=== PATIENT | female | born 1975 | race Caucasian/White ===

== ENCOUNTER 2017-10-26 22:02 | Emergency (ER) | payer BC, SELFPAY ==
[2017-10-26 22:15] VITALS: BP 168/97; PULSE 78; RESP 20; TEMP 36.6; O2SAT 100; BMI 26.4
--- NOTE | 2017-10-26 22:20 | DI.RAD.S_ITS ---
PROCEDURE: XR WRIST LT MIN 3V INDICATIONS: fell and has swelling and pain TECHNIQUE: 3 views of the wrist were acquired. COMPARISON: None. FINDINGS: Bones: Comminuted, articulating fracture of the distal radius without angulation or displacement. Distal ulna and carpal bones appear intact. Scaphoid view: Not requested Soft tissues: No suspicious soft tissue calcifications. IMPRESSION: Intra-articular tripartite fracture distal radius. Findings are concordant with the preliminary reading Dictated by: Marshall Cervantes M.D. on 10/27/2017 at 8:05 Approved by: Marshall Cervantes M.D. on 10/27/2017 at 8:06
--- NOTE | 2017-10-26 22:22 | ED.UPPEXIN ---
HPI - Extremity Injury (Upper) General Chief Complaint: Extremity Injury, Upper Stated Complaint: LT WRIST INJURY Time Seen by Provider: 10/26/17 22:22 Source: patient Mode of arrival: ambulatory Limitations: no limitations History of Present Illness HPI narrative: Patient is a 42-year-old female who presents with left wrist pain. She was [place] and walking on the beach when she tripped and fell backwards. She has pain in her left wrist. No numbness or tingling. It hurts when she moves her wrist and fingers. No elbow or shoulder pain no other injuries. MD complaint: injury to: left and wrist Onset (ago): minute(s) Other injuries: none Related Data Previous Rx's Medication Instructions Recorded IBUPROFEN (#MOTRIN) 800 mg PO Q6H #30 03/30/11 oxycodone-acetaminophen [Percocet] 1 tab PO Q6H PRN #10 tab 10/26/17 Allergies Allergy/AdvReac Type Severity Reaction Status Date / Time acetaminophen [From VICODIN] Allergy Unknown ITCHING Verified 10/26/17 22:25 hydrocodone [From VICODIN] Allergy Unknown ITCHING Unverified 10/26/17 22:26 Review of Systems Constitutional Denies chills, Denies fever(s), Denies lethargy and Denies weakness Cardiovascular Denies chest pain and Denies palpitations Respiratory Denies cough Musculoskeletal Reports system reviewed and no additional complaints, except as docu and Reports as per HPI Integumentary/Breasts Denies pruritus, Denies erythema, Denies rash and Denies wounds Neurologic Denies weakness and Denies other (head injury) Endocrine Denies palpitations [facility] Surgical History History of bladder suspension procedure History of gastric bypass (05/10/04) History of third molar tooth extraction Status post tonsillectomy and adenoidectomy Status post tubal ligation Social History Smoking Status: Never smoker Exam Initial Vital Signs Initial Vital Signs: Vital Signs Temperature 98 F 10/26/17 22:15 Pulse Rate 78 10/26/17 22:15 Respiratory Rate 20 10/26/17 22:15 Blood Pressure 168/97 H 10/26/17 22:15 Pulse Oximetry 100 10/26/17 22:15 Const General: cooperative and well developed Nutritional Appearance: well nourished Orientation: alert, awake, oriented x3 and not confused Chest Chest: normal inspection of the chest Resp Effort & Inspection: normal respiratory effort and able to speak in complete sentences Cardio Pulses: radial pulses present and ulnar radial pulses present Skin General: no rashes or lesions noted, No jaundice and No petechiae Neuro General: alert, oriented x3, gait normal and no focal motor deficits Speech: speech normal Extrem Left upper extremity: wrist Details: tenderness Location: of the distal radius, abnormal ROM Details: pain with passive ROM and normal vascular exam; no swelling Procedures Orthopedic Splinting/Casting Injury #1: Side: left Upper Extremity Injury Location: wrist Upper Extremity Immobilizer: sugar tong splint Additional Comments: Neurovascularly intact before and after splinting Course Orders Ordered: ED Orders 10/26/17 22:20 XR wrist LT min 3V Stat Discontinued Medications Oxycodone/Acetaminophen (Endocet 5/325 Prepack) 1 bottle MISC SEEINSTR ONE Stop: 10/26/17 22:53 Last Admin: 10/26/17 22:55 Dose: 1 bottle Vital Signs - 8 hr 10/26/17 22:15 10/26/17 23:13 Temperature 98 F 98.0 F Pulse Rate 78 68 Respiratory Rate 20 16 Blood Pressure 168/97 H Blood Pressure [Right Arm] 154/99 H Pulse Oximetry 100 MDM - Extremity Injury (Upper) Imaging Data Left wrist x-ray: Attestation: I personally reviewed and interpreted this imaging study as follows: My impression: Distal radius fracture on minimal displacement Discharge Plan Departure Patient Disposition: Home, Self-Care Clinical Impression: Distal radius fracture, left Discharge Date/Time: 10/26/17 23:20 Interventions: ED Discharge Assessment Last Done: 10/26/17 23:19 Instructions: DI for Distal Radius Fracture Activity Restrictions/Additional Instructions: *You have been diagnosed with left distal radius fracture *What to do: Keep arm in splint until evaluated by Orthopedics. Elevate, ice 20 min at a time *Continue to take medications as directed -Percocet 1 tablet every 4 hr or 2 tablets every 6 hr if needed for severe pain *Follow up with your primary care provider in 2-3 days, call [facility] tomorrow to schedule follow-up appointment next week *Return to ER if you should have numbness, tingling or any new, worsening or concerning symptoms CONTROLLED SUBSTANCE DISCHARGE (Narcotoic/benzodiazepine/Flexeril/Phenergan) 1. You have been prescribed narcotic medications, it does have acetaminophen/Tylenol/paracetamol in it so do not take extra Tylenol or Tylenol containing products 2. Please understand that we cannot provide further refills of narcotics, benzodiazepines or controlled substances through the ED and her pain management will need to be through your provider. 3. While on these medications you cannot drive or operate heavy machinery. 4. You cannot sign legal documents or perform any duties such as this. 5. As long as you're taking opiate pain medications he should also be taking a stool softener such as Colace, Dulcolax, MiraLAX or prune juice, to help avoid constipation. Prescriptions: New oxycodone-acetaminophen [Percocet] 5-325 mg tablet 1 tab PO Q6H PRN (Reason: pain) Qty: 10 RF: 0 No Action IBUPROFEN (#MOTRIN) 800 mg PO Q6H Qty: 30 RF: 1 Referrals: [facility] [Outside] Stand Alone Forms: Work/School Restrictions
[2017-10-26] MEDS: OXYCODONE/APAP 5/325 PREPACK 1 BOTTLE MISC (22:55)
[2017-10-26 23:13] VITALS: BP 154/99; PULSE 68; RESP 16; TEMP 36.7
== END 2017-10-26 23:20 | disposition home or self-care (01) ==
LOC: ED 23:45
PROVIDERS: Emergency Provider Emergency Medicine
DX: S52.502A Unspecified fracture of the lower end of left radius, initial encounter for closed fracture (principal); W01.0XXA Fall on same level from slipping, tripping and stumbling without subsequent striking against object, initial encounter
CPT/HCPCS: 29105; 29240; 73110; 99282; 99283

== ENCOUNTER → 2017-11-02 13:24 | Outpatient (CLI) | payer BC, MEDICAID, SELFPAY ==
--- NOTE | 2017-11-02 | DI.CT.S_ITS ---
PROCEDURE: CT UE LT WO CON INDICATIONS: LEFT WRIST PAIN TECHNIQUE: Noncontrast 1 mm axial sections acquired through the carpal bones, with coronal and sagittal reformats. COMPARISON: None. FINDINGS: Image quality: Excellent. Bones: Comminuted, mildly impacted intra-articular fracture is seen involving the distal radial metaphysis, extending to the distal radial articular surface although there is minimal if any articular surface incongruity Soft tissues: There is adjacent soft tissue swelling. Visualized muscles and tendons are otherwise unremarkable. IMPRESSION: Distal radial fracture as detailed above. Dictated by: Bassam Herman M.D. on 11/02/2017 at 13:56 Approved by: Bassam Herman M.D. on 11/02/2017 at 14:01
== END ==
PROVIDERS: Visit Provider Orthopaedic Surgery Foot and Ankle Surgery
DX: S52.502A Unspecified fracture of the lower end of left radius, initial encounter for closed fracture (principal)
CPT/HCPCS: 73200

== ENCOUNTER → 2018-05-18 08:27 | Outpatient (CLI) | payer BC, SELFPAY ==
--- NOTE | 2018-05-18 | DI.MG.S_ITS ---
BILATERAL DIGITAL SCREENING MAMMOGRAM 3D/2D WITH CAD: 05/18/2018 CLINICAL: Routine screening. Family history of breast cancer. Comparison is made to exams dated: 05/19/2016 mammogram and 08/12/2004 mammogram - [facility]. There are scattered fibroglandular elements in both breasts. Current study was also evaluated with a Computer Aided Detection (CAD) system. No significant masses, calcifications, or other findings are seen in either breast. There has been no significant interval change. IMPRESSION: NEGATIVE There is no mammographic evidence of malignancy. A 1 year screening mammogram is recommended. This exam was interpreted at Station ID: [id number]. NOTE: For mammograms, a report in lay terms will be sent to the patient. Approximately 15% of breast malignancies will not be visualized mammographically. In the management of a palpable breast mass, a negative mammogram must not discourage biopsy of a clinically suspicious lesion. Electronically Signed By: Lg stahl/adan:05/18/2018 20:59:27 letter sent: Normal Exam ACR BI-RADS Category 1: Negative [id number]
== END ==
PROVIDERS: Visit Provider Family Medicine
DX: Z12.31 Encounter for screening mammogram for malignant neoplasm of breast (principal); Z80.3 Family history of malignant neoplasm of breast
CPT/HCPCS: 77063; 77067

== ENCOUNTER 2019-04-04 06:35 | Emergency (ER) | payer BC, SELFPAY ==
[2019-04-04 06:44] VITALS: BP 143/95; PULSE 72; RESP 18; TEMP 36.6; O2SAT 98
[2019-04-04 06:57] LABS: Add Manual Diff / Slide Review NO; Basophils Absolute Auto 0 /uL (0-100); Basophils Percent Auto 0.4 % (0-2); Eosinophils Absolute Auto 200 /uL (0-450); Eosinophils Percent Auto 1.6 % (2-4); Hematocrit 41.8 % (36-46); Hemoglobin 14.2 g/dL (12.0-16.0); Lymphocytes Absolute Auto 4100 /uL (1100-4500); Lymphocytes Percent Auto 44.6 % (25-40); Mean Corpuscular HGB Conc 34.1 % (30-36); Mean Corpuscular Hemoglobin 29.9 PG (26-34); Mean Corpuscular Volume 87.9 fL (80-100); Monocytes Absolute Auto 600 /uL (0-900); Monocytes Percent Auto 6.3 % (3-14); Neutrophils Absolute Auto 4300 /uL (1500-7000); Neutrophils Percent Auto 47.1 % (50-75); Platelet Count 247 X10^3/uL (150-400); Red Blood Cell Count 4.75 X10^6/uL (4.0-5.2); Red Cell Distribution Width 13.3 % (11.6-14.8); White Blood Cell Count 9.2 X10^3/uL (4.5-11.0)
[2019-04-04 07:03] LABS: Alanine Aminotransferase 13 IU/L (<35); Albumin 4.5 g/dL (3.5-5.0); Albumin Globulin Ratio 1.6 (1.0-2.8); Alkaline Phosphatase 61 U/L (38-126); Aspartate Aminotransferase 21 IU/L (14-36); BUN Creatinine Ratio 12.5 (6-22); Bilirubin Total 0.5 mg/dL (0.2-1.3); Blood Urea Nitrogen 10 mg/dL (7-17); Calcium 9.2 mg/dL (8.4-10.2); Carbon Dioxide 25 mmol/L (22-32); Chloride 103 mmol/L (98-107); Estimated Glomerular Filt Rate > 60.0 mL/min (>60); Globulin 2.9 g/dL (1.7-4.1); Glucose 144 mg/dL (70-100); HEMOLYSIS < 15 (0-50); Lipase 122 U/L (23-300); Potassium 4.1 mmol/L (3.4-5.1); Sodium 138 mmol/L (137-145); Total Protein 7.4 g/dL (6.3-8.2)
--- NOTE | 2019-04-04 07:18 | PC.NURSE ---
Addendum entered by Joy Silverman R.N. 04/04/19 07:19: ammended for correction of R flank Original Note: L flank pain since this morning. no h/o kidney stones. denies fever. urine sample obtained. urine yellow and clear. afebrile
[2019-04-04 07:25] LABS: Appearance Urine UA CLEAR; Bilirubin Urine UA NEGATIVE (NEGATIVE); Color Urine UA YELLOW; Glucose Urine UA NEGATIVE (Negative); Ketones Urine UA TRACE (NEGATIVE); Leukocyte Esterase Urine UA NEGATIVE (NEGATIVE); Nitrite Urine UA NEGATIVE (Negative); Occult Blood Urine UA 1+ (Negative); Protein Urine UA 1+ (Negative); Specific Gravity Urine UA >=1.030 (1.000-1.035); Urobilinogen Urine UA 0.2 E.U./dL (0.2)
[2019-04-04 07:28] LABS: Pregnancy Test Urine Negative (Negative)
[2019-04-04 07:44] LABS: Bacteria Urine Many (>30); Culture Indicated Urine Cult Not Indicated; RBC Urine 1-5/HPF (0-5/HPF); Squamous Epithelial Cell Urine 10-30 /HPF (0-5/HPF); WBC Urine 1-5/HPF (0-5/HPF); pH Urine UA 5.5 (4.5-8.0)
--- NOTE | 2019-04-04 08:06 | ED.BACK ---
HPI - Back Pain/Injury General Chief Complaint: Back Pain/Injury Stated Complaint: stabbing pain/lower abdomen Time Seen by Provider: 04/04/19 07:10 Source: patient Mode of arrival: Ambulatory Limitations: no limitations History of Present Illness HPI Narrative: The patient comes emergency department complaining of right lower quadrant and right flank pain since yesterday. Patient states that she has had some nausea without vomiting and her appetite has been decreased, as well. She denies fevers, though she does states she feels warm when the nausea comes up. 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 However, she got out of bed and felt a sharp, knife-like pain in her right lower quadrant and it made her double over. Patient states she could not walk down the hemphill without doubling over. Patient states that the pain is about a 3/10 as long she does not move, but when she moves, the pain immediately shoots up. She denies any dysuria. No hematuria. No diarrhea or blood in her stools. Patient states that she has had abdominal surgeries, including gastric bypass and tubal ligation twice. Patient denies any other complaints at this time. Related Data Home Medications Medication Instructions Recorded Confirmed Resmed Airsense 10 CPAP #1 ea 11/22/18 03/29/19 Previous Rx's Medication Instructions Recorded IBUPROFEN (#MOTRIN) 800 mg PO Q6H #30 03/30/11 fluoxetine 20 mg tablet 20 mg PO DAILY #30 tab 03/29/19 methylphenidate HCl 54 mg 54 mg PO QAM #30 tab 03/29/19 tablet,extended release 24 hr ondansetron 4 mg PO Q6H PRN #10 tab 04/04/19 tramadol 50 mg PO Q6H PRN #10 tab 04/04/19 Allergies Allergy/AdvReac Type Severity Reaction Status Date / Time acetaminophen [From VICODIN] Allergy Unknown ITCHING Verified 03/08/19 08:59 hydrocodone [From VICODIN] Allergy Unknown ITCHING Verified 03/08/19 08:59 Review of Systems Constitutional Constitutional: Denies chills, Denies fatigue, Denies fever(s), Denies frequent falls, Denies lethargy and Denies weakness Eyes Eyes: Denies change in vision, Denies eye discharge, Denies irritation and Denies loss of vision ENT Ears, Nose, Mouth, and Throat: Denies change in voice, Denies dizziness, Denies neck pain, Denies sore throat and Denies throat swelling Cardiovascular Cardiovascular: Denies chest pain, Denies irregular heart rhythm, Denies lightheadedness, Denies palpitations, Denies dyspnea, Denies dyspnea on exertion and Denies orthopnea Respiratory Respiratory: Denies cough, Denies dyspnea, Denies dyspnea on exertion and Denies wheezing Gastrointestinal Gastrointestinal: Reports abdominal pain, Denies change in bowel habits, Denies diarrhea, Reports nausea and Denies vomiting Genitourinary Genitourinary: Denies hematuria, Denies flank pain, Denies urinary incontinence and Denies urinary urgency Musculoskeletal Musculoskeletal: Denies back pain, Denies muscle weakness, Denies neck pain, Denies numbness and Denies tingling Integumentary/Breasts Skin/Breast: Denies pruritus, Denies erythema, Denies rash and Denies wounds Neurologic Neurologic: Denies behavioral changes, Denies confusion, Denies dizziness, Denies frequent falls, Denies loss of vision, Denies numbness, Denies tingling and Denies weakness Psychiatric Psychiatric: Denies anxiety, Denies behavioral changes, Denies confusion, Denies depression, Denies homicidal ideation and Denies suicidal ideation Endocrine Endocrine: Denies fatigue, Denies flushing and Denies palpitations Hematologic/Lymphatic Hematologic/Lymphatic: Denies easy bruising Allergic/Immunologic Allergic/Immunologic: Denies urticaria, Denies throat swelling and Denies wheezing Patient History Medical History Alcohol use disorder, moderate, in sustained remission (Inactive) Breathing-related sleep disorder (Ruled-out) Insomnia (Chronic ~2017) Obstructive sleep apnea of adult (Chronic ~2017) Snoring (Chronic ~2017) Surgical History History of bladder suspension procedure (Resolved) History of gastric bypass (Resolved 05/10/04) History of third molar tooth extraction (Resolved) Status post tonsillectomy and adenoidectomy (Resolved) Status post tubal ligation (Resolved) Social History marital status: number of children: 2 household members: children (son Fadi (~2006), daughter Sandra (~2010)) lives independently: Yes caregiver/support person: No housing: apartment education level: college ([employer]) occupational status: employed current occupational exposures/hazards: No leisure activities: sports (running 3-5 times weekly) Smoking Status: Never smoker alcohol intake: former substance use type: does not use Type(s) of exercise: running frequency: 5-6 times per week Substance Use Type: does not use Exam Initial Vital Signs Initial Vital Signs: Vital Signs Temperature 98 F 04/04/19 06:44 Pulse Rate 72 04/04/19 06:44 Respiratory Rate 18 04/04/19 06:44 Blood Pressure 143/95 H 04/04/19 06:44 Pulse Oximetry 98 04/04/19 06:44 Const General: cooperative and well developed Nutritional Appearance: well nourished Orientation: alert, awake, oriented x3 and not confused HENMT Head: normocephalic and atraumatic Ears: external ears normal and TM's normal bilaterally Nose: external nose normal and No nasal discharge Face and sinus: sinuses nontender, face symmetric, no sinus tenderness and No dry mucous membranes Mouth: oral mucosae normal and moist mucous membranes Teeth and gingiva: dentition normal Throat: tonsils normal and uvula midline Eyes General: appearance normal, both eyes and all related structures Eyelids: eyelids normal Conjunctivae: conjunctivae normal Sclera: sclerae normal Pupils: PERRL EOM: EOM intact bilaterally Neck Neck: normal visual inspection, trachea midline, No lymphadenopathy, No midline deformity and No JVD Lymphatic: No lymphedema Chest Chest: normal inspection of the chest Resp Effort & Inspection: normal respiratory effort, able to speak in complete sentences, no respiratory distress and no use of accessory muscles Auscultation: clear to auscultation bilaterally, no rales, no rhonchi and no wheezes Cardio Rate: regular rate Rhythm: regular rhythm Heart Sounds: no click, no gallops, no murmurs and no rubs Pulses: normal peripheral pulses GI Inspection: non-distended Palpation: soft, no hepatosplenomegaly, No guarding, No pulsatile mass and tender (Mild, right lower quadrant and right flank.) Back/Spine/Pelvis Back: No CVA tenderness Cervical Spine: cervical ROM normal and No pain with cervical ROM Thoracic/Lumbar Spine: thoracic and lumbar spine normal to inspection Skin General: no rashes or lesions noted, No jaundice and No petechiae Neuro General: alert, oriented x3, gait normal and no focal motor deficits Speech: speech normal Extrem General: full ROM, no clubbing, cyanosis or edema, no pedal edema and no calf tenderness Psych Appearance: well kempt Mental Status: mental status grossly normal Attitude: cooperative Thought Content: normal and suicidality Judgment: judgment good Course Course Course Narrative: Patient was worked up with labs, urinalysis, and CT scan of the abdomen pelvis. Workup was completely unremarkable, including a normal white blood cell count and an unremarkable CT scan of the abdomen and pelvis. I re-evaluated the patient who was found to be feeling slightly better. We have discussed the findings and the implications of the results of the workup. We have discussed the usual indications for return, as well as symptomatic management at home. Orders Ordered: Discontinued Medications Sodium Chloride (Normal Saline 0.9%) 1,000 mls @ 1,000 mls/hr IV BOLUS ONE Stop: 04/04/19 09:09 Last Infusion: 04/04/19 10:39 Dose: 0 mls/hr Documented by: Admin: 04/04/19 08:38 Dose: 1,000 mls/hr Documented by: WILLIE Vital Signs Vital signs: Vital Signs - 8 hr 04/04/19 06:44 Temperature 98 F Pulse Rate 72 Respiratory Rate 18 Blood Pressure 143/95 H Pulse Oximetry 98 MDM - Back Pain/Injury Medical Records Attestation: I reviewed the patient's medical records. Lab Data Attestation: I reviewed the patient's lab results. Result diagrams: 04/04/19 06:46 04/04/19 06:46 Labs: Lab Results 04/04/19 04/04/19 04/04/19 Range/Units 06:46 06:46 06:46 WBC 9.2 (4.5-11.0) X10^3/uL RBC 4.75 (4.0-5.2) X10^6/uL Hgb 14.2 (12.0-16.0) g/dL Hct 41.8 (36-46) % MCV 87.9 (80-100) fL MCH 29.9 (26-34) PG MCHC 34.1 (30-36) % RDW 13.3 (11.6-14.8) % Plt Count 247 (150-400) X10^3/uL Neut % (Auto) 47.1 L (50-75) % Lymph % (Auto) 44.6 H (25-40) % [place] % (Auto) 6.3 (3-14) % Eos % (Auto) 1.6 L (2-4) % Baso % (Auto) 0.4 (0-2) % Neut # (Auto) 4300 (0621-1667) /uL Lymph # (Auto) 4100 (4766-9421) /uL [place] # (Auto) 600 (0-900) /uL Eos # (Auto) 200 (0-450) /uL Baso # (Auto) 0 (0-100) /uL Sodium 138 (137-145) mmol/L Potassium 4.1 (3.4-5.1) mmol/L Chloride 103 (98-107) mmol/L Carbon Dioxide 25 (22-32) mmol/L BUN 10 (7-17) mg/dL Creatinine 0.80 (0.52-1.04) mg/dL Estimated GFR > 60.0 (>60) mL/min BUN/Creatinine Ratio 12.5 (6-22) Glucose 144 H (70-100) mg/dL Calcium 9.2 (8.4-10.2) mg/dL Total Bilirubin 0.5 (0.2-1.3) mg/dL AST 21 (14-36) IU/L ALT 13 (<35) IU/L Alkaline Phosphatase 61 (38-126) U/L Total Protein 7.4 (6.3-8.2) g/dL Albumin 4.5 (3.5-5.0) g/dL Globulin 2.9 (1.7-4.1) g/dL Albumin/Globulin Ratio 1.6 (1.0-2.8) Lipase 122 (23-300) U/L Urine Color Urine Appearance Urine pH (4.5-8.0) Ur Specific [place] (1.000-1.035) Urine Protein (Negative) Urine Glucose (UA) (Negative) g/dL Urine Ketones (NEGATIVE) Urine Occult Blood (Negative) Urine Nitrate (Negative) Urine Bilirubin (NEGATIVE) Urine Urobilinogen (0.2) E.U./dL Ur Leukocyte Esterase (NEGATIVE) Urine RBC (0-5/HPF) Urine WBC (0-5/HPF) Ur Squamous Epith Cells (0-5/HPF) Urine Bacteria (None) Ur Culture Indicated? Urine Test Negative (Negative) 04/04/19 Range/Units 06:46 WBC (4.5-11.0) X10^3/uL RBC (4.0-5.2) X10^6/uL Hgb (12.0-16.0) g/dL Hct (36-46) % MCV (80-100) fL MCH (26-34) PG MCHC (30-36) % RDW (11.6-14.8) % Plt Count (150-400) X10^3/uL Neut % (Auto) (50-75) % Lymph % (Auto) (25-40) % [place] % (Auto) (3-14) % Eos % (Auto) (2-4) % Baso % (Auto) (0-2) % Neut # (Auto) (2407-4732) /uL Lymph # (Auto) (2191-1217) /uL [place] # (Auto) (0-900) /uL Eos # (Auto) (0-450) /uL Baso # (Auto) (0-100) /uL Sodium (137-145) mmol/L Potassium (3.4-5.1) mmol/L Chloride (98-107) mmol/L Carbon Dioxide (22-32) mmol/L BUN (7-17) mg/dL Creatinine (0.52-1.04) mg/dL Estimated GFR (>60) mL/min BUN/Creatinine Ratio (6-22) Glucose (70-100) mg/dL Calcium (8.4-10.2) mg/dL Total Bilirubin (0.2-1.3) mg/dL AST (14-36) IU/L ALT (<35) IU/L Alkaline Phosphatase (38-126) U/L Total Protein (6.3-8.2) g/dL Albumin (3.5-5.0) g/dL Globulin (1.7-4.1) g/dL Albumin/Globulin Ratio (1.0-2.8) Lipase (23-300) U/L Urine Color Yellow Urine Appearance Clear Urine pH 5.5 (4.5-8.0) Ur Specific [place] >=1.030 H (1.000-1.035) Urine Protein 1+ H (Negative) Urine Glucose (UA) Negative (Negative) g/dL Urine Ketones Trace H (NEGATIVE) Urine Occult Blood 1+ H (Negative) Urine Nitrate Negative (Negative) Urine Bilirubin Negative (NEGATIVE) Urine Urobilinogen 0.2 (0.2) E.U./dL Ur Leukocyte Esterase Negative (NEGATIVE) Urine RBC 1-5/hpf (0-5/HPF) Urine WBC 1-5/hpf (0-5/HPF) Ur Squamous Epith Cells 10-30 /hpf H (0-5/HPF) Urine Bacteria Many (>30) H (None) Ur Culture Indicated? Cult not indicated Urine Test (Negative) Imaging Data CT scan - abdomen: Radiologist's impression: PROCEDURE: CT ABDOMEN PELVIS W CON INDICATIONS: RLQ and flank pain TECHNIQUE: After the administration of intravenous contrast, 5 mm thick sections acquired from the diaphragm to the symphysis. 5 mm coronal and sagittal reformats were acquired. For radiation dose reduction, the following was used: automated exposure control, adjustment of mA and/or kV according to patient size. COMPARISON: None. FINDINGS: Image quality: Excellent. ABDOMEN: Lung bases: Lung bases are clear. Heart size is normal. Solid organs: Liver is normal in size and enhancement. Gallbladder wall does not appear thickened. Biliary system is non dilated. Pancreas enhances normally. Spleen is normal in size and enhancement. No adrenal nodules. Kidneys demonstrate normal size and enhancement, without hydronephrosis. Peritoneum and bowel: In this patient with this given history, scrutiny is given to the appendix. No appendix can be seen, either normal or abnormal. No focal right lower quadrant inflammatory changes are seen. There is a moderate amount of stool seen throughout the colon. Upper abdominal postoperative changes are seen, which are attributed to gastric bypass surgery. Bowel loops demonstrate normal wall thickness and caliber. No free fluid or air. Minimal sigmoid diverticulosis is seen, without findings of active diverticulitis. Nodes and vessels: No retroperitoneal or mesenteric adenopathy by size criteria. Aorta and inferior vena cava are normal in size. Miscellaneous: No ventral hernias. PELVIS: Genitourinary: Bladder wall thickness is normal. There is an apparent sterilization device seen involving the left fallopian tube. Please correlate with known patient history. Miscellaneous: No inguinal hernias or adenopathy. Bones: No suspicious bony lesions. No vertebral body compression fractures. IMPRESSION: No appendix is seen, either normal or abnormal. No focal right lower quadrant inflammatory changes can be seen. There is a moderate amount of stool seen within the colon. Please correlate with an underlying history of constipation. Negative for hydronephrosis. Incidental note is made of: Presumed gastric bypass surgery Apparent left fallopian tube sterilization device Minimal sigmoid diverticulosis, without diverticulitis Dictated by: Curtis Murillo M.D. on 04/04/2019 at 8:32 Approved by: Curtis Murillo M.D. on 04/04/2019 at 8:37 Discharge Plan Departure Patient Disposition: Home Clinical Impression: Abdominal pain Qualifiers: Abdominal location: right lower quadrant Qualified Code(s): R10.31 - Right lower quadrant pain Discharge Date/Time: 04/04/19 10:43 Instructions: DI for Abdominal Pain-Adult Activity Restrictions/Additional Instructions: Your labs look good. Your white blood cell count is normal and your liver and kidney labs are unremarkable. Urinalysis did not show signs of infection. The CT scan shows in your colon, but no evidence of kidney stone or appendicitis. At this point in time, no serious cause of your pain has been found. You may take the medication for nausea and pain as needed. If you develop fevers or progressively worsening pain, please return to the emergency department for re-evaluation. Prescriptions: New tramadol 50 mg tablet 50 mg PO Q6H PRN (Reason: pain) Qty: 10 RF: 0 ondansetron 4 mg tablet,disintegrating 4 mg PO Q6H PRN (Reason: nausea and vomiting) Qty: 10 RF: 0 No Action methylphenidate HCl 54 mg tablet extended release 24hr 54 mg PO QAM Qty: 30 RF: 0 fluoxetine 20 mg tablet 20 mg PO DAILY Qty: 30 RF: 1 IBUPROFEN (#MOTRIN) 800 mg PO Q6H Qty: 30 RF: 1 (DME) Resmed Airsense 10 CPAP Qty: 1 RF: 0 Referrals: [facility] [Provider Group]
--- NOTE | 2019-04-04 08:10 | DI.CT.S_ITS ---
PROCEDURE: CT ABDOMEN PELVIS W CON INDICATIONS: RLQ and flank pain TECHNIQUE: After the administration of intravenous contrast, 5 mm thick sections acquired from the diaphragm to the symphysis. 5 mm coronal and sagittal reformats were acquired. For radiation dose reduction, the following was used: automated exposure control, adjustment of mA and/or kV according to patient size. COMPARISON: None. FINDINGS: Image quality: Excellent. ABDOMEN: Lung bases: Lung bases are clear. Heart size is normal. Solid organs: Liver is normal in size and enhancement. Gallbladder wall does not appear thickened. Biliary system is non dilated. Pancreas enhances normally. Spleen is normal in size and enhancement. No adrenal nodules. Kidneys demonstrate normal size and enhancement, without hydronephrosis. Peritoneum and bowel: In this patient with this given history, scrutiny is given to the appendix. No appendix can be seen, either normal or abnormal. No focal right lower quadrant inflammatory changes are seen. There is a moderate amount of stool seen throughout the colon. Upper abdominal postoperative changes are seen, which are attributed to gastric bypass surgery. Bowel loops demonstrate normal wall thickness and caliber. No free fluid or air. Minimal sigmoid diverticulosis is seen, without findings of active diverticulitis. Nodes and vessels: No retroperitoneal or mesenteric adenopathy by size criteria. Aorta and inferior vena cava are normal in size. Miscellaneous: No ventral hernias. PELVIS: Genitourinary: Bladder wall thickness is normal. There is an apparent sterilization device seen involving the left fallopian tube. Please correlate with known patient history. Miscellaneous: No inguinal hernias or adenopathy. Bones: No suspicious bony lesions. No vertebral body compression fractures. IMPRESSION: No appendix is seen, either normal or abnormal. No focal right lower quadrant inflammatory changes can be seen. There is a moderate amount of stool seen within the colon. Please correlate with an underlying history of constipation. Negative for hydronephrosis. Incidental note is made of: Presumed gastric bypass surgery Apparent left fallopian tube sterilization device Minimal sigmoid diverticulosis, without diverticulitis Dictated by: Curtis Murillo M.D. on 04/04/2019 at 8:32 Approved by: Curtis Murillo M.D. on 04/04/2019 at 8:37
[2019-04-04] MEDS: SODIUM CHLORIDE 0.9% 1,000 ML 1000 ML IV (08:38)
[2019-04-04 08:42] VITALS: BP 154/97; PULSE 59; RESP 17; O2SAT 99
[2019-04-04 10:43] VITALS: BP 150/93; PULSE 69; RESP 18; O2SAT 100
== END 2019-04-04 10:43 | disposition home or self-care (01) ==
PROVIDERS: Emergency Medicine; Emergency Provider Emergency Medicine
DX: R10.31 Right lower quadrant pain (principal); R11.2 Nausea with vomiting, unspecified
CPT/HCPCS: 36415; 74177; 80053; 81001; 81025; 83690; 85025; 99283; 99284; Q9967

== ENCOUNTER 2019-04-23 11:00 | Emergency (ER) | payer BC, SELFPAY ==
[2019-04-23 11:05] VITALS: BP 155/111; PULSE 89; RESP 24; TEMP 36.8; O2SAT 95; BMI 29.6
--- NOTE | 2019-04-23 11:25 | DI.RAD.S_ITS ---
PROCEDURE: XR CHEST 1V INDICATIONS: chest pain / tingling TECHNIQUE: One view of the chest was acquired. COMPARISON: None. FINDINGS: Surgical changes and devices: None. Lungs and pleura: Lungs are clear. No pleural effusions or pneumothorax. Mediastinum: Mediastinal contours appear normal. Heart size is normal. Bones and chest wall: No suspicious bony lesions. Overlying soft tissues appear unremarkable. IMPRESSION: No acute process. Dictated by: Bon Avila M.D. on 04/23/2019 at 11:43 Approved by: Bon Avila M.D. on 04/23/2019 at 11:44
[2019-04-23 11:30] VITALS: BP 136/110; PULSE 99; RESP 18; O2SAT 97
--- NOTE | 2019-04-23 11:40 | ED_ITS ---
HPI - Weakness General Chief complaint: Weakness Stated complaint: right side numbness Time Seen by Provider: 04/23/19 11:24 Source: patient Mode of arrival: Ambulatory Limitations: no limitations History of Present Illness HPI Narrative: This 43-year-old female was seen here nearly 3 weeks ago due to right abdominal and low back pain. She states since then, she has had tingling in her right hoff, right calf and right foot (indicates the medial side). She states that she only has a numb sensation, has not noted any weakness. She states that at 9:45 a.m. this morning, she went to take her break and walk to [email or web address] when she noticed that the right side of her face felt numb throughout, and part of her right arm (indicates posterior forearm only) felt ?tingly?, like at the dentist. She again states she does not feel any weakness, no trouble with speech, walking, etc.. She states that she feels like her eyelid twitches intermittently, and the only other thing she noticed was some brief flashing lights for a couple of seconds in her vision. She states she has not had any vision change or headache. She does not feel faint. She does not have any chest pain, dyspnea or abdominal symptoms today. She denies any changes in bowel or bladder function. She denies any fever, recent upper respiratory symptoms or illness. She denies any new rashes. She states that the initial pain that she came in with as far as her back has significantly improved and has been doing PT. She states initially she thought she just needed to eat, but after doing that symptoms did not improve and was advised by PCP office to come here. She states that since she was here a few weeks ago she feels ?off?, can't say specifically how but describes feeling fatigued and poor energy. She notes that she has been taking muscle relaxants for her back, not sleeping well. She was prescribed steroids but finished these a few days ago. Related Data Home Medications Medication Instructions Recorded Confirmed Resmed Airsense 10 CPAP #1 ea 11/22/18 03/29/19 Previous Rx's Medication Instructions Recorded IBUPROFEN (#MOTRIN) 800 mg PO Q6H #30 03/30/11 fluoxetine 20 mg tablet 20 mg PO DAILY #30 tab 03/29/19 methylphenidate HCl 54 mg 54 mg PO QAM #30 tab 03/29/19 tablet,extended release 24 hr ondansetron 4 mg PO Q6H PRN #10 tab 04/04/19 tramadol 50 mg PO Q6H PRN #10 tab 04/04/19 Allergies Allergy/AdvReac Type Severity Reaction Status Date / Time acetaminophen [From VICODIN] Allergy Unknown ITCHING Verified 03/08/19 08:59 hydrocodone [From VICODIN] Allergy Unknown ITCHING Verified 03/08/19 08:59 Review of Systems Review of Systems ROS Unobtainable: All systems reviewed & are unremarkable except as noted in HPI and below Patient History Medical History (Updated 04/23/19 @ 14:55 by Deja Deluna PA-C) Alcohol use disorder, moderate, in sustained remission (Inactive) Anxiety and depression (Chronic) Breathing-related sleep disorder (Ruled-out) Insomnia (Chronic ~2016) Obstructive sleep apnea of adult (Chronic ~2017) Snoring (Chronic ~2016) Surgical History History of bladder suspension procedure (Resolved) History of gastric bypass (Resolved 05/10/04) History of third molar tooth extraction (Resolved) Status post tonsillectomy and adenoidectomy (Resolved) Status post tubal ligation (Resolved) Social History marital status: number of children: 2 household members: children (son Fadi (~2006), daughter Sandra (~2010)) lives independently: Yes caregiver/support person: No housing: apartment education level: college ([employer]) occupational status: employed current occupational exposures/hazards: No leisure activities: sports (running 3-5 times weekly) Smoking Status: Never smoker alcohol intake: former substance use type: does not use Type(s) of exercise: running frequency: 5-6 times per week Smoking Status: Never smoker Substance Use Type: does not use Exam Narrative Exam Narrative: GENERAL APPEARANCE: Patient sitting comfortably, appears well. HEENT: PERRL, EOMI, normal TMs and oropharynx, no sinus TTP NECK: Supple, no masses LUNGS: Clear to auscultation bilaterally. HEART: Rate and rhythm regular without murmur, normal S1 and S2, no S3 or S4. ABDOMEN: Soft, NT, ND NEUROLOGIC: Alert and oriented, cranial nerves 3-XII grossly intact, normal speech, gait and coordination. DTRs 2+ symmetric throughout MUSCULOSKELETAL: Full Csp AROM, normal range of motion of extremities. 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 Lower extremity strength 5/5 bilateral hip extensors, knee flexion, foot plantar flexion. DERMATOLOGIC: No exanthem Initial Vital Signs Initial Vital Signs: Vital Signs Temperature 98.2 F 04/23/19 11:05 Pulse Rate 89 04/23/19 11:05 Respiratory Rate 24 04/23/19 11:05 Blood Pressure 155/111 H 04/23/19 11:05 Pulse Oximetry 95 04/23/19 11:05 Course Course Additional Information: I reviewed history and nl neuro exam with attending Dr. Newsome, who advised MR protocol MS in addition to labs (chest pain orders done prior to my visit). Reviewed nonspecific mild white matter changes on MR with patient, and to monitor for sx such as facial palsey, rash, any acute weakness, and she is agreeable. She already has NCS pending. Advised f/u with PCP this week to discuss whether they want to do any additional imaging, add to plans for nerve studies etc, and she is agreeable Orders Ordered: ED Orders 04/23/19 11:22 EKG-12 Lead Routine 04/23/19 11:25 XR chest 1V Stat 04/23/19 11:40 Complete Blood Count AUTO DIFF Stat Comprehensive Metabolic Panel Stat Lipase Stat Thyroid Stimulating Hormone Stat Troponin & CK Cardiac Panel Stat 04/23/19 12:03 MR head/brain wo/w con Stat Discontinued Medications Aspirin (Aspirin Chew) 324 mg PO NOW ONE Stop: 04/23/19 11:26 Last Admin: 04/23/19 12:00 Dose: Not Given Documented by: ROOSEVELT Sodium Chloride (Normal Saline 0.9%) 1,000 mls @ 150 mls/hr IV CONT ARLIN Last Admin: 04/23/19 12:00 Dose: Not Given Documented by: ROOSEVELT Vital Signs Vital signs: Vital Signs - 8 hr 04/23/19 11:30 04/23/19 14:00 04/23/19 14:57 Pulse Rate 99 H 88 Respiratory Rate 18 21 18 Blood Pressure 144/92 H Blood Pressure [Left Arm] 136/110 H 146/95 H Pulse Oximetry 97 99 MDM - Weakness Lab Data Attestation: I reviewed the patient's lab results. Result diagrams: 04/23/19 11:40 04/23/19 11:40 Labs: Lab Results 04/23/19 04/23/19 04/23/19 Range/Units 11:40 11:40 11:40 WBC 9.7 (4.5-11.0) X10^3/uL RBC 5.09 (4.0-5.2) X10^6/uL Hgb 15.1 (12.0-16.0) g/dL Hct 45.0 (36-46) % MCV 88.5 (80-100) fL MCH 29.6 (26-34) PG MCHC 33.4 (30-36) % RDW 13.7 (11.6-14.8) % Plt Count 335 (150-400) X10^3/uL Neut % (Auto) 63.3 (50-75) % Lymph % (Auto) 29.0 (25-40) % [place] % (Auto) 5.2 (3-14) % Eos % (Auto) 1.2 L (2-4) % Baso % (Auto) 1.3 (0-2) % Neut # (Auto) 6200 (3553-6706) /uL Lymph # (Auto) 2800 (3742-2019) /uL [place] # (Auto) 500 (0-900) /uL Eos # (Auto) 100 (0-450) /uL Baso # (Auto) 100 (0-100) /uL Sodium 138 (137-145) mmol/L Potassium 4.4 (3.4-5.1) mmol/L Chloride 101 (98-107) mmol/L Carbon Dioxide 29 (22-32) mmol/L BUN 10 (7-17) mg/dL Creatinine 0.80 (0.52-1.04) mg/dL Estimated GFR > 60.0 (>60) mL/min BUN/Creatinine Ratio 12.5 (6-22) Glucose 111 H (70-100) mg/dL Calcium 9.4 (8.4-10.2) mg/dL Total Bilirubin 0.4 (0.2-1.3) mg/dL AST 21 (14-36) IU/L ALT 17 (<35) IU/L Alkaline Phosphatase 63 (38-126) U/L Total Creatine Kinase 90 (30-135) U/L CK-MB (CK-2) TNP CK-MB (CK-2) Rel Index TNP Troponin I < 0.012 (0.01-0.034) ng/mL Total Protein 7.4 (6.3-8.2) g/dL Albumin 4.5 (3.5-5.0) g/dL Globulin 2.9 (1.7-4.1) g/dL Albumin/Globulin Ratio 1.6 (1.0-2.8) Lipase 107 (23-300) U/L TSH 2.62 (0.47-4.68) uIU/mL Imaging Data MRI - head: Radiologist's impression: [address] [address] Magnetic Resonance Report Signed Patient: Dacia Lopez [facility]#: [id number] : 1975Acct:[id number] Age/Sex: 43 / FDate of Service: 04/23/19 Loc: ED Accession Number: [id number] Procedure: MR head/brain wo/w con Ordering Provider: Deja Deluna P.A-C PROCEDURE: MR HEAD/BRAIN WO/W CON INDICATIONS: R. UE, LE, facial paresthesia (MS protocol) TECHNIQUE: Noncontrast axial T1 spin echo, axial T2 fast spin echo, sagittal and axial FLAIR, coronal T2 fast spin echo, axial gradient echo, axial diffusion and ADC through the brain. After the administration of contrast, axial and coronal 3D VIBE or T1 spin echo with fat saturation through the brain. COMPARISON: None. FINDINGS: Image quality: Excellent. CSF Spaces: Basal cisterns are patent. No extra-axial fluid collections. Ventricles are normal in size and shape. Brain: No midline shift. No intracranial bleeds or masses. There is a minimal degree of scattered punctate high FLAIR signal foci within the bilateral frontoparietal periventricular white matter, which is nonspecific. No abnormal intracranial enhancement. The brainstem appears normal. Diffusion-weighted images demonstrate no acute ischemic insults. No chronic ischemic insults. Normal intravascular flow voids are present. Skull and face: Calvarial marrow is normal in signal. Orbits appear normal. Sinuses: Sinuses and mastoids appear clear. IMPRESSION: 1. No acute intracranial abnormality. No emergent findings. 2. Minimal degree of nonspecific white matter disease. Differential considerations include early small vessel ischemic disease, diabetes mellitus, vasculitides, migraines, and demyelinating disorders, such as multiple sclerosis. 3. No recent infarct. Dictated by: Bon Avila M.D. on 04/23/2019 at 13:00 Approved by: Bon Avila M.D. on 04/23/2019 at 13:02 Chest x-ray: Radiologist's impression: ECG Data Attestation: I personally reviewed and interpreted this ECG as follows: (Normal sinus rhythm, rate 87, normal axis) Discharge Plan Departure Patient Disposition: Home Clinical Impression: Paresthesia Discharge Date/Time: 04/23/19 14:57 Instructions: DI for Numbness/tingling Activity Restrictions/Additional Instructions: As we talked about, you should return if you have any acutely worsening symptoms, or new symptoms such as weakness, fever, difficulty with speech, coordination, etc. there was no specific problem found on your MRI to explain your symptoms as we discussed. There were some minor changes which can be due to a number of causes Please follow-up with your PCP office this week to dete rmine whether to do any further imaging studies or add any areas on to the nerve conduction testing that you were referred for. Prescriptions: No Action methylphenidate HCl 54 mg tablet extended release 24hr 54 mg PO QAM Qty: 30 RF: 0 fluoxetine 20 mg tablet 20 mg PO DAILY Qty: 30 RF: 1 IBUPROFEN (#MOTRIN) 800 mg PO Q6H Qty: 30 RF: 1 tramadol 50 mg tablet 50 mg PO Q6H PRN (Reason: pain) Qty: 10 RF: 0 ondansetron 4 mg tablet,disintegrating 4 mg PO Q6H PRN (Reason: nausea and vomiting) Qty: 10 RF: 0 (DME) Resmed Airsense 10 CPAP Qty: 1 RF: 0 Referrals: Kj Hall MD [Primary Care Provider] -
[2019-04-23 11:49] LABS: Add Manual Diff / Slide Review NO; Basophils Absolute Auto 100 /uL (0-100); Basophils Percent Auto 1.3 % (0-2); Eosinophils Absolute Auto 100 /uL (0-450); Eosinophils Percent Auto 1.2 % (2-4); Hemoglobin 15.1 g/dL (12.0-16.0); Lymphocytes Absolute Auto 2800 /uL (1100-4500); Mean Corpuscular HGB Conc 33.4 % (30-36); Mean Corpuscular Hemoglobin 29.6 PG (26-34); Mean Corpuscular Volume 88.5 fL (80-100); Monocytes Absolute Auto 500 /uL (0-900); Monocytes Percent Auto 5.2 % (3-14); Neutrophils Absolute Auto 6200 /uL (1500-7000); Neutrophils Percent Auto 63.3 % (50-75); Platelet Count 335 X10^3/uL (150-400); Red Blood Cell Count 5.09 X10^6/uL (4.0-5.2); Red Cell Distribution Width 13.7 % (11.6-14.8); White Blood Cell Count 9.7 X10^3/uL (4.5-11.0)
--- NOTE | 2019-04-23 12:03 | DI.MRI.S_ITS ---
PROCEDURE: MR HEAD/BRAIN WO/W CON INDICATIONS: R. UE, LE, facial paresthesia (MS protocol) TECHNIQUE: Noncontrast axial T1 spin echo, axial T2 fast spin echo, sagittal and axial FLAIR, coronal T2 fast spin echo, axial gradient echo, axial diffusion and ADC through the brain. After the administration of contrast, axial and coronal 3D VIBE or T1 spin echo with fat saturation through the brain. COMPARISON: None. FINDINGS: Image quality: Excellent. CSF Spaces: Basal cisterns are patent. No extra-axial fluid collections. Ventricles are normal in size and shape. Brain: No midline shift. No intracranial bleeds or masses. There is a minimal degree of scattered punctate high FLAIR signal foci within the bilateral frontoparietal periventricular white matter, which is nonspecific. No abnormal intracranial enhancement. The brainstem appears normal. Diffusion-weighted images demonstrate no acute ischemic insults. No chronic ischemic insults. Normal intravascular flow voids are present. Skull and face: Calvarial marrow is normal in signal. Orbits appear normal. Sinuses: Sinuses and mastoids appear clear. IMPRESSION: 1. No acute intracranial abnormality. No emergent findings. 2. Minimal degree of nonspecific white matter disease. Differential considerations include early small vessel ischemic disease, diabetes mellitus, vasculitides, migraines, and demyelinating disorders, such as multiple sclerosis. 3. No recent infarct. Dictated by: Bon Avila M.D. on 04/23/2019 at 13:00 Approved by: Bon Avila M.D. on 04/23/2019 at 13:02
[2019-04-23 12:04] LABS: Alanine Aminotransferase 17 IU/L (<35); Albumin 4.5 g/dL (3.5-5.0); Albumin Globulin Ratio 1.6 (1.0-2.8); Alkaline Phosphatase 63 U/L (38-126); Aspartate Aminotransferase 21 IU/L (14-36); BUN Creatinine Ratio 12.5 (6-22); Bilirubin Total 0.4 mg/dL (0.2-1.3); Blood Urea Nitrogen 10 mg/dL (7-17); Calcium 9.4 mg/dL (8.4-10.2); Carbon Dioxide 29 mmol/L (22-32); Chloride 101 mmol/L (98-107); Creatine Kinase 90 U/L (30-135); Estimated Glomerular Filt Rate > 60.0 mL/min (>60); Globulin 2.9 g/dL (1.7-4.1); Glucose 111 mg/dL (70-100); HEMOLYSIS < 15 (0-50); Lipase 107 U/L (23-300); Potassium 4.4 mmol/L (3.4-5.1); Sodium 138 mmol/L (137-145); Total Protein 7.4 g/dL (6.3-8.2)
--- NOTE | 2019-04-23 12:14 | PC.NURSE ---
Pt transported to MRI for MS Protocol MRI
[2019-04-23 12:16] LABS: Troponin I < 0.012 ng/mL (0.01-0.034)
[2019-04-23 12:49] LABS: Thyroid Stimulating Hormone 2.62 uIU/mL (0.47-4.68)
[2019-04-23 14:00] VITALS: BP 146/95; PULSE 88; RESP 21; O2SAT 99
[2019-04-23 14:57] VITALS: BP 144/92; RESP 18
== END 2019-04-23 14:57 | disposition home or self-care (01) ==
PROVIDERS: Emergency Medicine; Emergency Provider Internal Medicine; PCP Family Medicine
DX: R20.2 Paresthesia of skin (principal); H53.8 Other visual disturbances
CPT/HCPCS: 36415; 70553; 71045; 80053; 82550; 83690; 84443; 84484; 85025; 93005; 93010; 99284; 99285

== ENCOUNTER → 2019-05-02 06:04 | Outpatient (CLI) | payer BC, SELFPAY ==
--- NOTE | 2019-05-02 | DI.MRI.S_ITS ---
PROCEDURE: MR LUMBAR SPINE WO/W CON INDICATIONS: Radiculopathy, lumbar region,Paresthesia of skin TECHNIQUE: Noncontrast sagittal T1 spin echo and T2 fast spin echo, sagittal STIR, axial T1 and T2 fast spin echo through the lumbar spine. In cases with scoliosis, additional coronal T2 fast spin echo may be performed. After the administration of contrast, sagittal and axial T1 spin echo with fat saturation through the lumbar spine. COMPARISON: [facility], CT, CT ABDOMEN PELVIS W CON, 04/04/2019, 8:57. FINDINGS: Image quality: Excellent. Alignment and curvature: 5 lumbar type vertebral wires are present by CT.. There is mild grade 1 retrolisthesis of L2 on L3 and L3 on L4. Marrow: Marrow is of normal overall signal. No acute vertebral body compression fractures. No suspicious marrow enhancement. Mild reactive signal within the endplates adjacent to the L2-L3, L3-L4, and L4-L5 intervertebral discs. Spinal cord: Conus medullaris terminates at the upper L1 level. Visualized spinal cord demonstrates normal signal, without suspicious enhancement. Paraspinous soft tissues: No paravertebral masses or abnormal enhancement. On the sagittal sequences only, there is a right paracentral protrusion at T10-T11, and a left paracentral protrusion at T11-T12, which appear to be causing mild cord flattening. L1-L2: Normal appearance. L2-L3: Mild disc height loss and desiccation. Mild diffuse disc bulge. Mild facet and ligamentum flavum hypertrophy. Mild epidural lipomatosis. Mild canal stenosis. Mild bilateral foraminal stenosis. L3-L4: Moderate disc height loss and desiccation. Moderate diffuse disc bulge with superimposed right paracentral disc extrusion which extends inferiorly within the right anterior epidural space and lateral recess, causing compression and posterior deviation of the right L4 nerve root. Mild facet and ligament flavum hypertrophy. Mild canal stenosis. Moderate bilateral subarticular foraminal stenosis. L4-L5: Moderate disc height loss and desiccation. Mild diffuse disc bulge with superimposed central small protrusion. Mild bilateral facet hypertrophy. Mild canal stenosis. Moderate bilateral subarticular foraminal stenosis. L5-S1: Normal appearance. IMPRESSION: 1. Multilevel degenerative disc and facet disease, as well as ligamentum flavum hypertrophy and epidural lipomatosis. 2. Right L4 nerve root compression at the L3-L4 disc space and superior L4 level as described above. Recommend correlation with clinical symptoms to ascertain relevance of this finding. 3. Multilevel mild canal stenoses. 4. Disc protrusion with probable mild cord flattening at the T10-T11 and T11-T12 disc space levels, seen on the sagittal sequences only. Recommend further assessment with thoracic spine MRI. Dictated by: Bon Avila M.D. on 05/02/2019 at 13:41 Approved by: Bon Avila M.D. on 05/02/2019 at 13:55
--- NOTE | 2019-05-02 | DI.MRI.S_ITS ---
PROCEDURE: MR STROKE Pre- and post-contrast brain MRI, non-contrast brain MR angiogram, pre- and postcontrast neck MR angiogram INDICATIONS: Radiculopathy, lumbar region,Paresthesia of skin TECHNIQUE: Brain: Noncontrast axial T1 spin echo, axial T2 fast spin echo, sagittal and axial FLAIR, coronal T2 fast spin echo, axial gradient echo, axial diffusion and ADC through the brain. After the administration of contrast, axial 3D VIBE of the cranial vasculature and brain. Brain MRA: Non-contrast 3-D time of flight MR angiogram, with multiple vsozlzo-jwthswhin-raylgpsfop (MIP) reformats performed. Neck MRA: Axial and sagittal TruFISP through the neck. Coronal dynamic MR angiogram during administration of contrast in the arterial and venous phases, with 3-dimenstional acwevdz-kczraxjna-uqobojvemd (MIP) reformats constructed from subtraction images. COMPARISON: [facility], MR, MR HEAD/BRAIN WO/W CON, 04/23/2019, 12:20. FINDINGS: Image quality: Excellent. BRAIN: CSF spaces: Ventricles are normal in size and shape. Basal cisterns are patent. No extra-axial fluid collections. Brain: No intracranial bleeds or mass effects. [place]-white matter interface is normal. Diffusion weighted images show no acute ischemic insults. Brainstem appears normal. Normal intravascular flow voids are present. No abnormal intracranial enhancement. Skull and face: Calvarial marrow signal is normal. Orbits appear normal. Sinuses: Sinuses and mastoids are clear. Note is made of prominent leftward deviation of the midline nasal septum associated with what appears to be reynaldo bullosa involving the right sided middle nasal turbinate. BRAIN MR ANGIOGRAM: Anterior circulation: Intracranial internal carotid arteries are normal in size and enhancement. The flow within the paired anterior cerebral arteries is normal and symmetric. The flow within the middle cerebral arteries is normal and symmetric. The anterior communicating artery is seen. No stenoses, occlusions, or aneurysms. Posterior circulation: The visualized portions of the vertebral arteries demonstrate normal caliber, and join to form a normal appearing basilar artery. The flow within the posterior cerebral arteries is normal and symmetric. No stenoses, occlusions, or aneurysms. NECK MR ANGIOGRAM: Carotids: Great vessels demonstrate a conventional anatomy as they arise from the aortic arch. The origins of the common carotid arteries appear patent. The calibers and courses of both common carotid arteries are normal. The bifurcation regions appear normal bilaterally. The internal carotid arteries demonstrate normal course and caliber. Posterior circulation: The origins of the vertebral arteries appear patent. More superior portions of both vertebral arteries demonstrate normal course and caliber, and join to form a normal appearing basilar artery. Miscellaneous: Subclavian arteries appear patent. Pre-contrast images through the neck show no soft tissue abnormalities. Incidental note is made of significant spinal stenosis at C4-5 and C5-6. IMPRESSION: BRAIN MRI: No appreciable interval change, no source of current symptoms is found. Incidental note is made of relatively prominent leftward deviation of the midline nasal turbinate associated with reynaldo bullosa on the right. BRAIN MR ANGIOGRAM: No aneurysm or vascular malformation identified. NECK MR ANGIOGRAM: No carotid stenosis is suspected. Vertebral arterial flow with appears patent, without stenosis. Significant degenerative disc disease is noted at C4-5 and C5-6, with spinal stenosis, seen on building maintenance mechanic view imaging. Please correlate clinically for whether followup evaluation of symptomatology related to these findings is warranted. Dictated by: Ralph Morejon M.D. on 05/02/2019 at 8:19 Approved by: Ralph Morejon M.D. on 05/02/2019 at 8:29
== END ==
PROVIDERS: PCP Family Medicine; Visit Provider Family Medicine
DX: M51.16 Intervertebral disc disorders with radiculopathy, lumbar region (principal); M51.17 Intervertebral disc disorders with radiculopathy, lumbosacral region; M50.321 Other cervical disc degeneration at C4-C5 level; M48.02 Spinal stenosis, cervical region; M48.061 Spinal stenosis, lumbar region without neurogenic claudication; M48.07 Spinal stenosis, lumbosacral region; M51.24 Other intervertebral disc displacement, thoracic region; R20.2 Paresthesia of skin; E88.2 Lipomatosis, not elsewhere classified
CPT/HCPCS: 70548; 70553; 72158

== ENCOUNTER → 2019-05-16 10:01 | Outpatient (CLI) | payer BC, SELFPAY | PROVIDERS: PCP Family Medicine; Visit Provider Family Medicine | DX: R20.0 Anesthesia of skin (principal); M54.16 Radiculopathy, lumbar region; R20.2 Paresthesia of skin | CPT/HCPCS: 95886; 95909 ==

== ENCOUNTER → 2019-05-16 18:56 | Outpatient (CLI) | payer BC, SELFPAY ==
--- NOTE | 2019-05-16 | DI.MRI.S_ITS ---
PROCEDURE: MR THORACIC SPINE WO CON INDICATIONS: Unspecified cord compression TECHNIQUE: Noncontrast sagittal T1 spine echo and T2 fast spin echo, sagittal STIR, axial T1 and T2 fast spin echo through the thoracic spine. COMPARISON: None. FINDINGS: Image quality: Excellent. Alignment and Curvature: There is normal bony alignment. Bone Marrow: Marrow is of normal overall signal. No acute vertebral body compression fractures. Spinal Cord: Visualized spinal cord is normal in size and signal. Paraspinous Soft Tissues: No paravertebral masses. Miscellaneous: Small left central T5-T6 and T6-T7 disc protrusions. The T6-T7 left central disc protrusion abuts the anterior left margin of the thoracic spinal cord causing slight deformity and compresses the exiting left C6 nerve root. Small central T7-T8, T9-T10 and T10-T11 disc protrusions. No significant central canal narrowing. No neural foraminal narrowing. No neural compression. IMPRESSION: 1. No vertebral body compression fracture. 2. Multilevel degenerative disc disease. 3. No significant central canal narrowing. 4. No neural foraminal narrowing. 5. Left T6-T7 disc protrusion causes slight compression of the anterior left margin of the thoracic spinal cord and compresses the exiting left T6 nerve root. Please correlate with clinical data. Dictated by: Lorelei Jiang MD, PhD on 05/17/2019 at 9:07 Approved by: Lorelei Jiang MD, PhD on 05/17/2019 at 9:12
== END ==
PROVIDERS: Family Provider Family Medicine; PCP Family Medicine; Visit Provider Family Medicine
DX: M51.04 Intervertebral disc disorders with myelopathy, thoracic region (principal); M51.34 Other intervertebral disc degeneration, thoracic region
CPT/HCPCS: 72146

== ENCOUNTER → 2019-06-06 16:10 | Outpatient (CLI) | payer BC, SELFPAY ==
--- NOTE | 2019-06-06 | DI.MG.S_ITS ---
BILATERAL DIGITAL SCREENING MAMMOGRAM 3D/2D WITH CAD: 06/06/2019 CLINICAL: Routine screening. Family history of breast cancer. Comparison is made to exams dated: 05/18/2018 mammogram, 05/19/2016 mammogram, and 08/12/2004 mammogram - [facility]. There are scattered fibroglandular elements in both breasts. Current study was also evaluated with a Computer Aided Detection (CAD) system. No significant masses, calcifications, or other findings are seen in either breast. There has been no significant interval change. IMPRESSION: NEGATIVE There is no mammographic evidence of malignancy. A 1 year screening mammogram is recommended. This exam was interpreted at Station ID: [id number]. NOTE: For mammograms, a report in lay terms will be sent to the patient. Approximately 15% of breast malignancies will not be visualized mammographically. In the management of a palpable breast mass, a negative mammogram must not discourage biopsy of a clinically suspicious lesion. Electronically Signed By: Felisa herrera/adan:06/06/2019 17:55:01 letter sent: Normal Exam ACR BI-RADS Category 1: Negative 3341F
== END ==
PROVIDERS: PCP Family Medicine; Visit Provider Family Medicine
DX: Z12.31 Encounter for screening mammogram for malignant neoplasm of breast (principal); Z80.3 Family history of malignant neoplasm of breast
CPT/HCPCS: 77063; 77067

== ENCOUNTER 2019-06-20 07:30 | Outpatient (RCR) | payer BC, SELFPAY ==
--- NOTE | 2019-04-09 15:48 | PT.OIE ---
Current Diagnoses Radiculopathy, lumbar region (04/09/19) Past Medical History (Last Reviewed 04/04/19 @ 08:09 by Mallory Simmons MD) Alcohol use disorder, moderate, in sustained remission (Inactive) Breathing-related sleep disorder (Ruled-out) Insomnia (Chronic ~2017) Obstructive sleep apnea of adult (Chronic ~2017) Snoring (Chronic ~2017) Past Surgical History (Last Reviewed 04/04/19 @ 08:09 by Mallory Simmons MD) History of bladder suspension procedure (Resolved) History of gastric bypass (Resolved 05/10/04) History of third molar tooth extraction (Resolved) Status post tonsillectomy and adenoidectomy (Resolved) Status post tubal ligation (Resolved) Visit Care Team Role Provider Type Kj Hall MD Primary Care Provider Physician Specialty: [facility] Address: [address] [place] [address] Email: [email or web address] Alessia Tarango MD Attending Provider Physician Specialty: [facility] Address: [address] [place] [address] Email: [email or web address] Physical Therapy Initial Evaluation PT-OP-A Visit Information Start: 04/09/19 12:08 Freq: Status: Active Protocol: Document 04/09/19 12:11 MB (Rec: 04/09/19 12:44 MB [id number]) Out-Patient Physical Therapy Visit Information Visit Information Visit Type Initial Evaluation Visit Note [employer] and pt has 30 visits Visit Start Time 12:11 Visit Stop Time 12:51 Total Visit Minutes 40 Visit Number 06/06 PT-OP-B Current Condition Start: 04/09/19 12:08 Freq: Status: Active Protocol: Document 04/09/19 12:11 MB (Rec: 04/09/19 12:44 MB [id number]) Current Condition History of Current Condition Onset Date 04/03/19 History of Current Condition On 04/02/19, pt went to acupuncture for her monthly visit. She is a runner. She was supposed to run a [employer] [place] on and she hurt so badly when she got up that she could not walk down the steps. She went to the ED. CT abdomen was negative. Driving is the worst. She prefers standing to sitting. She has numbness down her right leg. Steps are no longer problematic. She goes to acupuncture once a month and massage therapy once a month. She runs 10-15 miles a week. She works at home and sits on a yoga ball. Pt reports 7-8/10 pain in right SI and down lateral anterior and posterior right leg. She has numbness in her calf and foot. She sleeps on her left side with a pillow between her legs . PMH includes DMII, depression, gastric bypass and cyst removal right foot and came back, pt had one episode of back pain on the right 15 years ago PT-OP-C Subjective Start: 04/09/19 12:08 Freq: Status: Active Protocol: Document 04/09/19 12:11 MB (Rec: 04/09/19 12:44 MB [id number]) OP-PT Subjective Patient Comments Patient Comments Pt's goal is to decrease pain, walk normal and get back to running Patient Questionnaires Oswestry Low Back Index Oswestry Impairment 60 to 79% Impaired (Score 60- 79) PT-OP-J Posture/Palpation/Skin Start: 04/09/19 12:08 Freq: Status: Active Protocol: Document 04/09/19 12:11 MB (Rec: 04/09/19 12:55 MB [id number]) Posture Evaluation Comments Posture Comments Standing: Dowager's hump, decreased thoracic kyphosis, increased lumbar lordosis and anterior pelvic tilt, right iliac crest higher than the left, increased soft tissue. PT-OP-M Strength Start: 04/09/19 12:08 Freq: Status: Active Protocol: Document 04/09/19 12:11 MB (Rec: 04/09/19 12:57 MB [id number]) Hip Strength Hip Manual Muscle Testing Left Flexion (L2) 4 Good Abduction 4 Good Right Flexion (L2) 3- Fair- Abduction 3- Fair- Comments Supine Knee Strength Knee Manual Muscle Testing Left Flexion (S2) 5 Normal Extension (L3) 5 Normal Comments Supine Right Flexion (S2) 5 Normal Extension (L3) 5 Normal Comments Supine Ankle/Foot Strength Ankle and Foot Manual Muscle Testing Left Dorsiflexion (L4) 5 Normal Plantarflexion (S1) 5 Normal Right Dorsiflexion (L4) 4 Good Plantarflexion (S1) 4 Good Toe Strength Toe Manual Muscle Testing Left Great Toe Flexion 5 Normal Right Great Toe Extension 4 Good PT-OP-Q Treatments Start: 04/09/19 12:08 Freq: Status: Active Protocol: Document 04/09/19 12:11 MB (Rec: 04/09/19 12:53 MB [id number]) Therapeutic Exercises Supine Exercises Pelvic realignment exercises Comments Pelvic realignment exercises performed and added to HEP PT-OP-T Assessment and Plan Start: 04/09/19 12:08 Freq: Status: Active Protocol: Document 04/09/19 12:11 MB (Rec: 04/09/19 13:55 MB [id number]) Physical Therapy Assessment Rehab Potential Rehabilitation Potential Good Evaluation Complexity Number of Personal Factors/Comorbidities 1-2 Number of Body Systems Impaired 1-2 Impairments Impairments Activity Tolerance,Balance, Gait,Pain,Posture,ROM, Sensation,Soft Tissue Mobility ,Strength Goals 4 Classified Ad Clerk Goal (LTG) Pt will perform progressive HEP with I including pelvic realignment, flexibility, core and LE strengthening and balance exercises by 06/10/19. LTG Duration 8 weeks 3 Classified Ad Clerk Goal (LTG) Pt will report a 75% improvement in back and RLE pain and paresthesias by . LTG Duration 8 weeks 2 Usp Goal (LTG) Pt will present with B hip flexion and extension, ankle DF and great toe extension strength to 5/5 by 06/10/19. LTG Duration 8 weeks 1 Classified Ad Clerk Goal (LTG) Pt will present with an improved Oswestry LBP scale score to reflect no more than 20% impairment by 06/10/19. LTG Duration 8 weeks Assessment Summary Assessment Pt is a 43 y/o female presenting with right SI and LE pain and right LE paresthesias since 04/02/19. She denies injury. She runs and received her regular monthy acupuncture treatment the day prior to symptoms. She woke up on the with trouble walking. She went to the ED and CT abdomen was negative. She reports remote history of severe back pain that lasted about a week and she took pain medication and slept for about a week and then it got better. She is unable to state if she had a disk issue or not. Slump testing is non-conclusive as pt reports larger area of posterior leg stretch with RLE but not numbness. With light touch testing, she reports decreased sensation medial 1/2 lower right leg and foot near inside arch. Pt presents with extension preference and increased pain with moving from sit to stand and sitting. She reports pain up to 7-8/10 . She presents with pelvic obliquities, postural changes, increased tension right iliopsoas and weakness in right hip flexor, B abductor and right DF and great toe extension. Pt's gait is antalgic and she favors the right LE. She will benefit from PT for pelvic realignment , flexibility, core and LE strengthening and balance exercises. She will benefit from manual fascial work. PT is concerned about possible disk/peripheral spinal nerve issue given sudden onset of symptoms and history of acute back pain. Physical Therapy Plan Frequency and Duration Frequency of Treatment 2x/Week Duration of Treatment 8 weeks Plan of Care Start Date 04/09/19 Plan of Care End Date 06/10/19 Therapeutic Interventions Therapeutic Interventions Aquatic Therapy,Balance Training,Gait Training,Home Exercise Program,Manual Therapy,Neuromuscular Re- education,Patient/Caregiver Education,Self-Care/Home Management,Soft Tissue Mobilization,Taping, Therapeutic Exercises Modalities Cold Pack/Ice Massage,Electric Stimulation,Hot Packs, Ultrasound Next Visit Focus/Plan Next Note Type Treatment Note Next Visit Plan Review pelvic realignment exercises and progress HEP as appropriate
--- NOTE | 2019-04-11 12:52 | PT.OTN ---
Current Diagnoses Radiculopathy, lumbar region (04/11/19) Physical Therapy Treatment Note PT-OP-A Visit Information Start: 04/09/19 12:08 Freq: Status: Active Protocol: Document 04/11/19 12:12 MB (Rec: 04/11/19 12:52 MB [id number]) Out-Patient Physical Therapy Visit Information Visit Information Visit Type Treatment Note Visit Note [employer] and pt has 30 visits Visit Start Time 12:12 Visit Stop Time 12:52 Total Visit Minutes 40 Visit Number PT-OP-B Current Condition Start: 04/09/19 12:08 Freq: Status: Active Protocol: Document 04/09/19 12:11 MB (Rec: 04/09/19 12:44 MB [id number]) Current Condition History of Current Condition Onset Date 04/03/19 History of Current Condition On 04/02/19, pt went to acupuncture for her monthly visit. She is a runner. She was supposed to run a 5K on and she hurt so badly when she got up that she could not walk down the steps. She went to the ED. CT abdomen was negative. Driving is the worst. She prefers standing to sitting. She has numbness down her right leg. Steps are no longer problematic. She goes to acupuncture once a month and massage therapy once a month. She runs 10-15 miles a week. She works at home and sits on a yoga ball. Pt reports 7-8/10 pain in right SI and down lateral anterior and posterior right leg. She has numbness in her calf and foot. She sleeps on her left side with a pillow between her legs . PMH includes DMII, depression, gastric bypass and cyst removal right foot and came back, pt had one episode of back pain on the right 15 years ago PT-OP-C Subjective Start: 04/09/19 12:08 Freq: Status: Active Protocol: Document 04/11/19 12:12 MB (Rec: 04/11/19 12:52 MB [id number]) OP-PT Subjective Patient Comments Patient Comments Pt states that she is walking better. She performed pelvic realignment exercises. She is driving in town without pain. Her right leg and foot are still numb. PT-OP-J Posture/Palpation/Skin Start: 04/09/19 12:08 Freq: Status: Active Protocol: Document 04/09/19 12:11 MB (Rec: 04/09/19 12:55 MB [id number]) Posture Evaluation Comments Posture Comments Standing: Dowager's hump, decreased thoracic kyphosis, increased lumbar lordosis and anterior pelvic tilt, right iliac crest higher than the left, increased soft tissue. PT-OP-M Strength Start: 04/09/19 12:08 Freq: Status: Active Protocol: Document 04/09/19 12:11 MB (Rec: 04/09/19 12:57 MB [id number]) Hip Strength Hip Manual Muscle Testing Left Flexion (L2) 4 Good Abduction 4 Good Right Flexion (L2) 3- Fair- Abduction 3- Fair- Comments Supine Knee Strength Knee Manual Muscle Testing Left Flexion (S2) 5 Normal Extension (L3) 5 Normal Comments Supine Right Flexion (S2) 5 Normal Extension (L3) 5 Normal Comments Supine Ankle/Foot Strength Ankle and Foot Manual Muscle Testing Left Dorsiflexion (L4) 5 Normal Plantarflexion (S1) 5 Normal Right Dorsiflexion (L4) 4 Good Plantarflexion (S1) 4 Good Toe Strength Toe Manual Muscle Testing Left Great Toe Flexion 5 Normal Right Great Toe Extension 4 Good PT-OP-Q Treatments Start: 04/09/19 12:08 Freq: Status: Active Protocol: Document 04/11/19 12:12 MB (Rec: 04/11/19 12:52 MB [id number]) Therapeutic Exercises Supine Exercises Pelvic realignment exercises Comments Pelvic realignment exercises performed and added to HEP Sitting Exercises Rolling pin massage Comments Performed and added to HEP Manual Therapy Treatment Other Other Manual Treatments STM right hip flexion and use rolling pin for right quad. MWM with PT putting pressure on trigger point and pt performing active hip motion-- for hip flexion, HS and for tensor fascia, hip ER and IR PT-OP-T Assessment and Plan Start: 04/09/19 12:08 Freq: Status: Active Protocol: Document 04/11/19 12:12 MB (Rec: 04/11/19 12:52 MB [id number]) Physical Therapy Assessment Rehab Potential Rehabilitation Potential Good Evaluation Complexity Number of Personal Factors/Comorbidities 1-2 Number of Body Systems Impaired 1-2 Impairments Impairments Activity Tolerance,Balance, Gait,Pain,Posture,ROM, Sensation,Soft Tissue Mobility ,Strength Goals 4 Form Drafter Goal (LTG) Pt will perform progressive HEP with I including pelvic realignment, flexibility, core and LE strengthening and balance exercises by 06/10/19. LTG Duration 8 weeks 3 Shelter Goal (LTG) Pt will report a 75% improvement in back and RLE pain and paresthesias by . LTG Duration 8 weeks 2 Form Drafter Goal (LTG) Pt will present with B hip flexion and extension, ankle DF and great toe extension strength to 5/5 by 06/10/19. LTG Duration 8 weeks 1 Shelter Goal (LTG) Pt will present with an improved Oswestry LBP scale score to reflect no more than 20% impairment by 06/10/19. LTG Duration 8 weeks Assessment Summary Assessment Initiated manual work and reviewed pelvic realignment and added rolling pin massage today. Con't progression. Physical Therapy Plan Frequency and Duration Frequency of Treatment 2x/Week Duration of Treatment 8 weeks Plan of Care Start Date 04/09/19 Plan of Care End Date 06/10/19 Therapeutic Interventions Therapeutic Interventions Aquatic Therapy,Balance Training,Gait Training,Home Exercise Program,Manual Therapy,Neuromuscular Re- education,Patient/Caregiver Education,Self-Care/Home Management,Soft Tissue Mobilization,Taping, Therapeutic Exercises Modalities Cold Pack/Ice Massage,Electric Stimulation,Hot Packs, Ultrasound Next Visit Focus/Plan Next Note Type Treatment Note Next Visit Plan Progress HEP as appropriate. Next treatment, consider raquet ball for TFL and glutes , hip flexor stretch and consider rib recoil treatment for QL
--- NOTE | 2019-04-16 13:44 | PT.OTN ---
Current Diagnoses Radiculopathy, lumbar region (04/16/19) Physical Therapy Treatment Note PT-OP-A Visit Information Start: 04/09/19 12:08 Freq: Status: Active Protocol: Document 04/16/19 13:01 MB (Rec: 04/16/19 13:44 MB [id number]) Out-Patient Physical Therapy Visit Information Visit Information Visit Type Treatment Note Visit Note [employer] and pt has 30 visits Visit Start Time 13:01 Visit Stop Time 13:41 Total Visit Minutes 40 Visit Number 08/04 PT-OP-B Current Condition Start: 04/09/19 12:08 Freq: Status: Active Protocol: Document 04/09/19 12:11 MB (Rec: 04/09/19 12:44 MB [id number]) Current Condition History of Current Condition Onset Date 04/03/19 History of Current Condition On 04/02/19, pt went to acupuncture for her monthly visit. She is a runner. She was supposed to run a 5K on and she hurt so badly when she got up that she could not walk down the steps. She went to the ED. CT abdomen was negative. Driving is the worst. She prefers standing to sitting. She has numbness down her right leg. Steps are no longer problematic. She goes to acupuncture once a month and massage therapy once a month. She runs 10-15 miles a week. She works at home and sits on a yoga ball. Pt reports 7-8/10 pain in right SI and down lateral anterior and posterior right leg. She has numbness in her calf and foot. She sleeps on her left side with a pillow between her legs . PMH includes DMII, depression, gastric bypass and cyst removal right foot and came back, pt had one episode of back pain on the right 15 years ago PT-OP-C Subjective Start: 04/09/19 12:08 Freq: Status: Active Protocol: Document 04/16/19 13:01 MB (Rec: 04/16/19 13:44 MB [id number]) OP-PT Subjective Patient Comments Patient Comments Pt states that the pain is better. She feels that the outside of her right LE and inside of right foot feels numb to touch. Her right leg felt achy yesterday. PT-OP-J Posture/Palpation/Skin Start: 04/09/19 12:08 Freq: Status: Active Protocol: Document 04/09/19 12:11 MB (Rec: 04/09/19 12:55 MB [id number]) Posture Evaluation Comments Posture Comments Standing: Dowager's hump, decreased thoracic kyphosis, increased lumbar lordosis and anterior pelvic tilt, right iliac crest higher than the left, increased soft tissue. PT-OP-M Strength Start: 04/09/19 12:08 Freq: Status: Active Protocol: Document 04/09/19 12:11 MB (Rec: 04/09/19 12:57 MB [id number]) Hip Strength Hip Manual Muscle Testing Left Flexion (L2) 4 Good Abduction 4 Good Right Flexion (L2) 3- Fair- Abduction 3- Fair- Comments Supine Knee Strength Knee Manual Muscle Testing Left Flexion (S2) 5 Normal Extension (L3) 5 Normal Comments Supine Right Flexion (S2) 5 Normal Extension (L3) 5 Normal Comments Supine Ankle/Foot Strength Ankle and Foot Manual Muscle Testing Left Dorsiflexion (L4) 5 Normal Plantarflexion (S1) 5 Normal Right Dorsiflexion (L4) 4 Good Plantarflexion (S1) 4 Good Toe Strength Toe Manual Muscle Testing Left Great Toe Flexion 5 Normal Right Great Toe Extension 4 Good PT-OP-Q Treatments Start: 04/09/19 12:08 Freq: Status: Active Protocol: Document 04/16/19 13:01 MB (Rec: 04/16/19 13:44 MB [id number]) Manual Therapy Treatment Soft Tissue Mobilization Counterstrain Comments Pt agrees to Counterstrain to assess and treat fascial tension. She denies having DM and eye pressure changes. PT treats the following stacks: right spinal vein flexion; right gooden rami PT-OP-T Assessment and Plan Start: 04/09/19 12:08 Freq: Status: Active Protocol: Document 04/16/19 13:01 MB (Rec: 04/16/19 13:44 MB [id number]) Physical Therapy Assessment Rehab Potential Rehabilitation Potential Good Evaluation Complexity Number of Personal Factors/Comorbidities 1-2 Number of Body Systems Impaired 1-2 Impairments Impairments Activity Tolerance,Balance, Gait,Pain,Posture,ROM, Sensation,Soft Tissue Mobility ,Strength Goals 4 Clinical Educator Goal (LTG) Pt will perform progressive HEP with I including pelvic realignment, flexibility, core and LE strengthening and balance exercises by 06/10/19. LTG Duration 8 weeks 3 Care Home Goal (LTG) Pt will report a 75% improvement in back and RLE pain and paresthesias by . LTG Duration 8 weeks 2 Clinical Educator Goal (LTG) Pt will present with B hip flexion and extension, ankle DF and great toe extension strength to 5/5 by 06/10/19. LTG Duration 8 weeks 1 Clinical Educator Goal (LTG) Pt will present with an improved Oswestry LBP scale score to reflect no more than 20% impairment by 06/10/19. LTG Duration 8 weeks Assessment Summary Assessment Initiated Counterstrain this date and monitor response. Con't progression, exercises next treatment date. Physical Therapy Plan Frequency and Duration Frequency of Treatment 2x/Week Duration of Treatment 8 weeks Plan of Care Start Date 04/09/19 Plan of Care End Date 06/10/19 Therapeutic Interventions Therapeutic Interventions Aquatic Therapy,Balance Training,Gait Training,Home Exercise Program,Manual Therapy,Neuromuscular Re- education,Patient/Caregiver Education,Self-Care/Home Management,Soft Tissue Mobilization,Taping, Therapeutic Exercises Modalities Cold Pack/Ice Massage,Electric Stimulation,Hot Packs, Ultrasound Next Visit Focus/Plan Next Note Type Treatment Note Next Visit Plan Progress HEP as appropriate. Next treatment, consider raquet ball for TFL and glutes , hip flexor stretch and consider rib recoil treatment for QL
--- NOTE | 2019-04-18 12:58 | PT.OTN ---
Current Diagnoses Radiculopathy, lumbar region (04/18/19) Physical Therapy Treatment Note PT-OP-A Visit Information Start: 04/09/19 12:08 Freq: Status: Active Protocol: Document 04/18/19 12:15 MB (Rec: 04/18/19 12:57 MB [id number]) Out-Patient Physical Therapy Visit Information Visit Information Visit Type Treatment Note Visit Note [employer] and pt has 30 visits Visit Start Time 12:15 Visit Stop Time 13:00 Total Visit Minutes 40 Visit Number 09/04 PT-OP-B Current Condition Start: 04/09/19 12:08 Freq: Status: Active Protocol: Document 04/09/19 12:11 MB (Rec: 04/09/19 12:44 MB [id number]) Current Condition History of Current Condition Onset Date 04/03/19 History of Current Condition On 04/02/19, pt went to acupuncture for her monthly visit. She is a runner. She was supposed to run a 5K on and she hurt so badly when she got up that she could not walk down the steps. She went to the ED. CT abdomen was negative. Driving is the worst. She prefers standing to sitting. She has numbness down her right leg. Steps are no longer problematic. She goes to acupuncture once a month and massage therapy once a month. She runs 10-15 miles a week. She works at home and sits on a yoga ball. Pt reports 7-8/10 pain in right SI and down lateral anterior and posterior right leg. She has numbness in her calf and foot. She sleeps on her left side with a pillow between her legs . PMH includes DMII, depression, gastric bypass and cyst removal right foot and came back, pt had one episode of back pain on the right 15 years ago PT-OP-C Subjective Start: 04/09/19 12:08 Freq: Status: Active Protocol: Document 04/18/19 12:15 MB (Rec: 04/18/19 12:57 MB [id number]) OP-PT Subjective Patient Comments Patient Comments Pt states that she has a massage today and 05/02/19. She con't to have the numbness on the lower part of her leg to touch. PT-OP-J Posture/Palpation/Skin Start: 04/09/19 12:08 Freq: Status: Active Protocol: Document 04/09/19 12:11 MB (Rec: 04/09/19 12:55 MB [id number]) Posture Evaluation Comments Posture Comments Standing: Dowager's hump, decreased thoracic kyphosis, increased lumbar lordosis and anterior pelvic tilt, right iliac crest higher than the left, increased soft tissue. PT-OP-M Strength Start: 04/09/19 12:08 Freq: Status: Active Protocol: Document 04/09/19 12:11 MB (Rec: 04/09/19 12:57 MB [id number]) Hip Strength Hip Manual Muscle Testing Left Flexion (L2) 4 Good Abduction 4 Good Right Flexion (L2) 3- Fair- Abduction 3- Fair- Comments Supine Knee Strength Knee Manual Muscle Testing Left Flexion (S2) 5 Normal Extension (L3) 5 Normal Comments Supine Right Flexion (S2) 5 Normal Extension (L3) 5 Normal Comments Supine Ankle/Foot Strength Ankle and Foot Manual Muscle Testing Left Dorsiflexion (L4) 5 Normal Plantarflexion (S1) 5 Normal Right Dorsiflexion (L4) 4 Good Plantarflexion (S1) 4 Good Toe Strength Toe Manual Muscle Testing Left Great Toe Flexion 5 Normal Right Great Toe Extension 4 Good PT-OP-Q Treatments Start: 04/09/19 12:08 Freq: Status: Active Protocol: Document 04/18/19 12:15 MB (Rec: 04/18/19 12:57 MB [id number]) Therapeutic Exercises Supine Exercises MWM calf self-massage with racquet ball Comments Performed this date and added to HEP Racquet ball release glute near sacrum at night Comments Performed this date and added to HEP Hip adductor stretch Comments Performed B with feet together in hook lying Hip rotator stretch Comments Performed B and added to HEP Negro stretch Comments Performed B and added to HEP Sitting Exercises Plantar fascia racquet ball massage Comments Racquet ball massage foot on ball on floor and added to HEP Hamstrings MWM with racquet ball Comments Performed in sitting with MWM, LAQ PT-OP-T Assessment and Plan Start: 04/09/19 12:08 Freq: Status: Active Protocol: Document 04/18/19 12:15 MB (Rec: 04/18/19 12:57 MB [id number]) Physical Therapy Assessment Rehab Potential Rehabilitation Potential Good Evaluation Complexity Number of Personal Factors/Comorbidities 1-2 Number of Body Systems Impaired 1-2 Impairments Impairments Activity Tolerance,Balance, Gait,Pain,Posture,ROM, Sensation,Soft Tissue Mobility ,Strength Goals 4 Fruit Checker Goal (LTG) Pt will perform progressive HEP with I including pelvic realignment, flexibility, core and LE strengthening and balance exercises by 06/10/19. LTG Duration 8 weeks 3 Correction Goal (LTG) Pt will report a 75% improvement in back and RLE pain and paresthesias by . LTG Duration 8 weeks 2 Correction Goal (LTG) Pt will present with B hip flexion and extension, ankle DF and great toe extension strength to 5/5 by 06/10/19. LTG Duration 8 weeks 1 Fruit Checker Goal (LTG) Pt will present with an improved Oswestry LBP scale score to reflect no more than 20% impairment by 06/10/19. LTG Duration 8 weeks Assessment Summary Assessment Pt presents with increased myofascial tension right vastus medialis, gastroc and soleus and these may contribute to a superficial nerve irritation. Con't to assess sacrum. Added further flexibility exercises today. Consider Counterstrain the future to treat neural fascial tightness. Physical Therapy Plan Frequency and Duration Frequency of Treatment 2x/Week Duration of Treatment 8 weeks Plan of Care Start Date 04/09/19 Plan of Care End Date 06/10/19 Therapeutic Interventions Therapeutic Interventions Aquatic Therapy,Balance Training,Gait Training,Home Exercise Program,Manual Therapy,Neuromuscular Re- education,Patient/Caregiver Education,Self-Care/Home Management,Soft Tissue Mobilization,Taping, Therapeutic Exercises Modalities Cold Pack/Ice Massage,Electric Stimulation,Hot Packs, Ultrasound Next Visit Focus/Plan Next Note Type Treatment Note Next Visit Plan Progress HEP as appropriate and consider rib recoil treatment for QL, progressive calf stretches in standing vs hamstring progression and MWM, glute and core strengthening
--- NOTE | 2019-04-22 08:14 | PT.OTN ---
Current Diagnoses Radiculopathy, lumbar region (04/22/19) Physical Therapy Treatment Note PT-OP-A Visit Information Start: 04/09/19 12:08 Freq: Status: Active Protocol: Document 04/22/19 07:34 MB (Rec: 04/22/19 08:14 MB [id number]) Out-Patient Physical Therapy Visit Information Visit Information Visit Type Treatment Note Visit Note [employer] and pt has 30 visits Visit Start Time 07:34 Visit Stop Time 08:14 Total Visit Minutes 40 Visit Number 10/04 PT-OP-B Current Condition Start: 04/09/19 12:08 Freq: Status: Active Protocol: Document 04/09/19 12:11 MB (Rec: 04/09/19 12:44 MB [id number]) Current Condition History of Current Condition Onset Date 04/03/19 History of Current Condition On 04/02/19, pt went to acupuncture for her monthly visit. She is a runner. She was supposed to run a 5K on and she hurt so badly when she got up that she could not walk down the steps. She went to the ED. CT abdomen was negative. Driving is the worst. She prefers standing to sitting. She has numbness down her right leg. Steps are no longer problematic. She goes to acupuncture once a month and massage therapy once a month. She runs 10-15 miles a week. She works at home and sits on a yoga ball. Pt reports 7-8/10 pain in right SI and down lateral anterior and posterior right leg. She has numbness in her calf and foot. She sleeps on her left side with a pillow between her legs . PMH includes DMII, depression, gastric bypass and cyst removal right foot and came back, pt had one episode of back pain on the right 15 years ago PT-OP-C Subjective Start: 04/09/19 12:08 Freq: Status: Active Protocol: Document 04/22/19 07:34 MB (Rec: 04/22/19 08:14 MB [id number]) OP-PT Subjective Patient Comments Patient Comments Pt states that she felt good on and had a good massage that day as well. Yesterday morning, she felt spasms in her right thigh. She had sharp pain in her right QL area. PT-OP-J Posture/Palpation/Skin Start: 04/09/19 12:08 Freq: Status: Active Protocol: Document 04/09/19 12:11 MB (Rec: 04/09/19 12:55 MB [id number]) Posture Evaluation Comments Posture Comments Standing: Dowager's hump, decreased thoracic kyphosis, increased lumbar lordosis and anterior pelvic tilt, right iliac crest higher than the left, increased soft tissue. PT-OP-M Strength Start: 04/09/19 12:08 Freq: Status: Active Protocol: Document 04/09/19 12:11 MB (Rec: 04/09/19 12:57 MB [id number]) Hip Strength Hip Manual Muscle Testing Left Flexion (L2) 4 Good Abduction 4 Good Right Flexion (L2) 3- Fair- Abduction 3- Fair- Comments Supine Knee Strength Knee Manual Muscle Testing Left Flexion (S2) 5 Normal Extension (L3) 5 Normal Comments Supine Right Flexion (S2) 5 Normal Extension (L3) 5 Normal Comments Supine Ankle/Foot Strength Ankle and Foot Manual Muscle Testing Left Dorsiflexion (L4) 5 Normal Plantarflexion (S1) 5 Normal Right Dorsiflexion (L4) 4 Good Plantarflexion (S1) 4 Good Toe Strength Toe Manual Muscle Testing Left Great Toe Flexion 5 Normal Right Great Toe Extension 4 Good PT-OP-Q Treatments Start: 04/09/19 12:08 Freq: Status: Active Protocol: Document 04/22/19 07:34 MB (Rec: 04/22/19 08:14 MB [id number]) Therapeutic Exercises Supine Exercises Pelvic realignment exercises Comments Ball squeeze Other Exercises Calf stretches standing Comments Gastroc and soleus and then MWM with toes up Manual Therapy Treatment Other Other Manual Treatments QL STM B side lying with rib recoil PT-OP-T Assessment and Plan Start: 04/09/19 12:08 Freq: Status: Active Protocol: Document 04/22/19 07:34 MB (Rec: 04/22/19 08:14 MB [id number]) Physical Therapy Assessment Rehab Potential Rehabilitation Potential Good Evaluation Complexity Number of Personal Factors/Comorbidities 1-2 Number of Body Systems Impaired 1-2 Impairments Impairments Activity Tolerance,Balance, Gait,Pain,Posture,ROM, Sensation,Soft Tissue Mobility ,Strength Goals 4 Envelope Cutter Goal (LTG) Pt will perform progressive HEP with I including pelvic realignment, flexibility, core and LE strengthening and balance exercises by 06/10/19. LTG Duration 8 weeks 3 Envelope Cutter Goal (LTG) Pt will report a 75% improvement in back and RLE pain and paresthesias by . LTG Duration 8 weeks 2 Snf Goal (LTG) Pt will present with B hip flexion and extension, ankle DF and great toe extension strength to 5/5 by 06/10/19. LTG Duration 8 weeks 1 Envelope Cutter Goal (LTG) Pt will present with an improved Oswestry LBP scale score to reflect no more than 20% impairment by 06/10/19. LTG Duration 8 weeks Assessment Summary Assessment Pt presents with high right iliac crest and increased tension in her right QL today. She presents with left downslip at start of treatment . Right QL is difficult to release with manual work including recoil. Con't to monitor. She con't with numbess in right leg. Initiated sacral assessment and gentle SCS on sacrum. Consider further Counterstrain in future treatments. Physical Therapy Plan Frequency and Duration Frequency of Treatment 2x/Week Duration of Treatment 8 weeks Plan of Care Start Date 04/09/19 Plan of Care End Date 06/10/19 Therapeutic Interventions Therapeutic Interventions Aquatic Therapy,Balance Training,Gait Training,Home Exercise Program,Manual Therapy,Neuromuscular Re- education,Patient/Caregiver Education,Self-Care/Home Management,Soft Tissue Mobilization,Taping, Therapeutic Exercises Modalities Cold Pack/Ice Massage,Electric Stimulation,Hot Packs, Ultrasound Next Visit Focus/Plan Next Note Type Treatment Note Next Visit Plan Progress HEP as appropriate and consider ongoing rib recoil treatment for QL, glute and core strengthening
--- NOTE | 2019-04-25 08:59 | PT.OTN ---
Current Diagnoses Radiculopathy, lumbar region (04/25/19) Physical Therapy Treatment Note PT-OP-A Visit Information Start: 04/09/19 12:08 Freq: Status: Active Protocol: Document 04/25/19 08:17 MB (Rec: 04/25/19 08:58 MB [id number]) Out-Patient Physical Therapy Visit Information Visit Information Visit Type Treatment Note Visit Note [employer] and pt has 30 visits Visit Start Time 08:17 Visit Stop Time 08:57 Total Visit Minutes 40 Visit Number 11/04 PT-OP-B Current Condition Start: 04/09/19 12:08 Freq: Status: Active Protocol: Document 04/09/19 12:11 MB (Rec: 04/09/19 12:44 MB [id number]) Current Condition History of Current Condition Onset Date 04/03/19 History of Current Condition On 04/02/19, pt went to acupuncture for her monthly visit. She is a runner. She was supposed to run a 5K on and she hurt so badly when she got up that she could not walk down the steps. She went to the ED. CT abdomen was negative. Driving is the worst. She prefers standing to sitting. She has numbness down her right leg. Steps are no longer problematic. She goes to acupuncture once a month and massage therapy once a month. She runs 10-15 miles a week. She works at home and sits on a yoga ball. Pt reports 7-8/10 pain in right SI and down lateral anterior and posterior right leg. She has numbness in her calf and foot. She sleeps on her left side with a pillow between her legs . PMH includes DMII, depression, gastric bypass and cyst removal right foot and came back, pt had one episode of back pain on the right 15 years ago PT-OP-C Subjective Start: 04/09/19 12:08 Freq: Status: Active Protocol: Document 04/25/19 08:17 MB (Rec: 04/25/19 08:58 MB [id number]) OP-PT Subjective Patient Comments Patient Comments Pt states that she had an onset of right arm and face numbness. She went to the ED and had a MRI. She follwed up with Dr. Tarango who ordered an EMG and cervical and lumbar MRIs and they have not yet been done. She feels some tingling in her right UQ of face. Her right leg pain is better. The numbness is no better. Dr. Tarango is aware that she is getting PT and is not concerned about PT. PT-OP-J Posture/Palpation/Skin Start: 04/09/19 12:08 Freq: Status: Active Protocol: Document 04/09/19 12:11 MB (Rec: 04/09/19 12:55 MB [id number]) Posture Evaluation Comments Posture Comments Standing: Dowager's hump, decreased thoracic kyphosis, increased lumbar lordosis and anterior pelvic tilt, right iliac crest higher than the left, increased soft tissue. PT-OP-M Strength Start: 04/09/19 12:08 Freq: Status: Active Protocol: Document 04/09/19 12:11 MB (Rec: 04/09/19 12:57 MB [id number]) Hip Strength Hip Manual Muscle Testing Left Flexion (L2) 4 Good Abduction 4 Good Right Flexion (L2) 3- Fair- Abduction 3- Fair- Comments Supine Knee Strength Knee Manual Muscle Testing Left Flexion (S2) 5 Normal Extension (L3) 5 Normal Comments Supine Right Flexion (S2) 5 Normal Extension (L3) 5 Normal Comments Supine Ankle/Foot Strength Ankle and Foot Manual Muscle Testing Left Dorsiflexion (L4) 5 Normal Plantarflexion (S1) 5 Normal Right Dorsiflexion (L4) 4 Good Plantarflexion (S1) 4 Good Toe Strength Toe Manual Muscle Testing Left Great Toe Flexion 5 Normal Right Great Toe Extension 4 Good PT-OP-Q Treatments Start: 04/09/19 12:08 Freq: Status: Active Protocol: Document 04/25/19 08:17 MB (Rec: 04/25/19 08:58 MB [id number]) Therapeutic Exercises Supine Exercises Diaphragmatic breathing Comments Performed this date and pt demonstrates well Hip adductor stretch Comments Performed B with feet together in hook lying Negro stretch Comments Performed B and added to HEP Pelvic realignment exercises Comments Performed this date and re-ed on proper performance Sidelying Exercises QL stretch in side lying Comments Added to HEP this date Standing Exercises Hip extension and abduction L reciprocal with level 1 band Comments Ed and performed this date, added to HEP Self-massage glutes with racquet ball Comments Performed against wall after hip strengthening Manual Therapy Treatment Manual Techniques Counterstrain Comments Pt agrees to Counterstrain to assess and treat fascial tension. She presents with B spinal vein fascial tension and treated stacks B. PT-OP-T Assessment and Plan Start: 04/09/19 12:08 Freq: Status: Active Protocol: Document 04/25/19 08:17 MB (Rec: 04/25/19 08:58 MB [id number]) Physical Therapy Assessment Rehab Potential Rehabilitation Potential Good Evaluation Complexity Number of Personal Factors/Comorbidities 1-2 Number of Body Systems Impaired 1-2 Impairments Impairments Activity Tolerance,Balance, Gait,Pain,Posture,ROM, Sensation,Soft Tissue Mobility ,Strength Goals 4 [employer] Driver Goal (LTG) Pt will perform progressive HEP with I including pelvic realignment, flexibility, core and LE strengthening and balance exercises by 06/10/19. LTG Duration 8 weeks 3 [employer] Goal (LTG) Pt will report a 75% improvement in back and RLE pain and paresthesias by . LTG Duration 8 weeks 2 [employer] Goal (LTG) Pt will present with B hip flexion and extension, ankle DF and great toe extension strength to 5/5 by 06/10/19. LTG Duration 8 weeks 1 [employer] Goal (LTG) Pt will present with an improved Oswestry LBP scale score to reflect no more than 20% impairment by 06/10/19. LTG Duration 8 weeks Assessment Summary Assessment Pt presents with right sided numbness ongoing in leg and new onset in right arm and face 2 days ago. She is having work-up and provider is aware she is getting PT. PT is concerned about possible underlying central problem and PT reviewed brain MRI report. Consider further Counterstrain in future treatments. Physical Therapy Plan Frequency and Duration Frequency of Treatment 2x/Week Duration of Treatment 8 weeks Plan of Care Start Date 04/09/19 Plan of Care End Date 06/10/19 Therapeutic Interventions Therapeutic Interventions Aquatic Therapy,Balance Training,Gait Training,Home Exercise Program,Manual Therapy,Neuromuscular Re- education,Patient/Caregiver Education,Self-Care/Home Management,Soft Tissue Mobilization,Taping, Therapeutic Exercises Modalities Cold Pack/Ice Massage,Electric Stimulation,Hot Packs, Ultrasound Next Visit Focus/Plan Next Note Type Treatment Note Next Visit Plan Progress HEP as appropriate and consider ongoing rib recoil treatment for QL and core strengthening
--- NOTE | 2019-04-29 09:44 | PT.OTN ---
Current Diagnoses Radiculopathy, lumbar region (04/29/19) Physical Therapy Treatment Note PT-OP-A Visit Information Start: 04/09/19 12:08 Freq: Status: Active Protocol: Document 04/29/19 09:04 MB (Rec: 04/29/19 09:44 MB [id number]) Out-Patient Physical Therapy Visit Information Visit Information Visit Type Treatment Note Visit Note [employer] and pt has 30 visits Visit Start Time 09:04 Visit Stop Time 09:44 Total Visit Minutes 40 Visit Number 12/04 PT-OP-B Current Condition Start: 04/09/19 12:08 Freq: Status: Active Protocol: Document 04/09/19 12:11 MB (Rec: 04/09/19 12:44 MB [id number]) Current Condition History of Current Condition Onset Date 04/03/19 History of Current Condition On 04/02/19, pt went to acupuncture for her monthly visit. She is a runner. She was supposed to run a 5K on and she hurt so badly when she got up that she could not walk down the steps. She went to the ED. CT abdomen was negative. Driving is the worst. She prefers standing to sitting. She has numbness down her right leg. Steps are no longer problematic. She goes to acupuncture once a month and massage therapy once a month. She runs 10-15 miles a week. She works at home and sits on a yoga ball. Pt reports 7-8/10 pain in right SI and down lateral anterior and posterior right leg. She has numbness in her calf and foot. She sleeps on her left side with a pillow between her legs . PMH includes DMII, depression, gastric bypass and cyst removal right foot and came back, pt had one episode of back pain on the right 15 years ago PT-OP-C Subjective Start: 04/09/19 12:08 Freq: Status: Active Protocol: Document 04/29/19 09:04 MB (Rec: 04/29/19 09:44 MB [id number]) OP-PT Subjective Patient Comments Patient Comments Pt states that her right leg is still numb and right face is tingly. Her right leg is achy today. PT-OP-J Posture/Palpation/Skin Start: 04/09/19 12:08 Freq: Status: Active Protocol: Document 04/09/19 12:11 MB (Rec: 04/09/19 12:55 MB [id number]) Posture Evaluation Comments Posture Comments Standing: Dowager's hump, decreased thoracic kyphosis, increased lumbar lordosis and anterior pelvic tilt, right iliac crest higher than the left, increased soft tissue. PT-OP-M Strength Start: 04/09/19 12:08 Freq: Status: Active Protocol: Document 04/09/19 12:11 MB (Rec: 04/09/19 12:57 MB [id number]) Hip Strength Hip Manual Muscle Testing Left Flexion (L2) 4 Good Abduction 4 Good Right Flexion (L2) 3- Fair- Abduction 3- Fair- Comments Supine Knee Strength Knee Manual Muscle Testing Left Flexion (S2) 5 Normal Extension (L3) 5 Normal Comments Supine Right Flexion (S2) 5 Normal Extension (L3) 5 Normal Comments Supine Ankle/Foot Strength Ankle and Foot Manual Muscle Testing Left Dorsiflexion (L4) 5 Normal Plantarflexion (S1) 5 Normal Right Dorsiflexion (L4) 4 Good Plantarflexion (S1) 4 Good Toe Strength Toe Manual Muscle Testing Left Great Toe Flexion 5 Normal Right Great Toe Extension 4 Good PT-OP-Q Treatments Start: 04/09/19 12:08 Freq: Status: Active Protocol: Document 04/29/19 09:04 MB (Rec: 04/29/19 09:44 MB [id number]) Manual Therapy Treatment Manual Techniques Counterstrain Comments Pt agrees to Counterstrain to assess and treat fascial tension. PT treats stacks: left lymphatic venous LE and viscera PT-OP-T Assessment and Plan Start: 04/09/19 12:08 Freq: Status: Active Protocol: Document 04/29/19 09:04 MB (Rec: 04/29/19 09:44 MB [id number]) Physical Therapy Assessment Rehab Potential Rehabilitation Potential Good Evaluation Complexity Number of Personal Factors/Comorbidities 1-2 Number of Body Systems Impaired 1-2 Impairments Impairments Activity Tolerance,Balance, Gait,Pain,Posture,ROM, Sensation,Soft Tissue Mobility ,Strength Goals 4 [employer] Goal (LTG) Pt will perform progressive HEP with I including pelvic realignment, flexibility, core and LE strengthening and balance exercises by 06/10/19. LTG Duration 8 weeks 3 [employer] Goal (LTG) Pt will report a 75% improvement in back and RLE pain and paresthesias by . LTG Duration 8 weeks 2 Fdc Goal (LTG) Pt will present with B hip flexion and extension, ankle DF and great toe extension strength to 5/5 by 06/10/19. LTG Duration 8 weeks 1 [employer] Goal (LTG) Pt will present with an improved Oswestry LBP scale score to reflect no more than 20% impairment by 06/10/19. LTG Duration 8 weeks Assessment Summary Assessment Counterstrain this date. Monitor patient's response and diagnostic results as MRI for cervical and lumbar spine ordered for later this week ( 05/02/19). Physical Therapy Plan Frequency and Duration Frequency of Treatment 2x/Week Duration of Treatment 8 weeks Plan of Care Start Date 04/09/19 Plan of Care End Date 06/10/19 Therapeutic Interventions Therapeutic Interventions Aquatic Therapy,Balance Training,Gait Training,Home Exercise Program,Manual Therapy,Neuromuscular Re- education,Patient/Caregiver Education,Self-Care/Home Management,Soft Tissue Mobilization,Taping, Therapeutic Exercises Modalities Cold Pack/Ice Massage,Electric Stimulation,Hot Packs, Ultrasound Next Visit Focus/Plan Next Note Type Treatment Note Next Visit Plan Progress HEP as appropriate and consider ongoing rib recoil treatment for QL and core strengthening
--- NOTE | 2019-05-06 13:00 | PT.OTN ---
Current Diagnoses Radiculopathy, lumbar region (05/06/19) Physical Therapy Treatment Note PT-OP-A Visit Information Start: 04/09/19 12:08 Freq: Status: Active Protocol: Document 05/06/19 12:21 SP (Rec: 05/06/19 13:02 SP [id number]) Out-Patient Physical Therapy Visit Information Visit Information Visit Type Treatment Note Visit Note BCBS and pt has 30 visits Pt late for appt. Visit Start Time 12:21 Visit Stop Time 13:00 Total Visit Minutes 39 Visit Number 01/04 Number of CHEMICAL PREPARER Visits 1 PT-OP-B Current Condition Start: 04/09/19 12:08 Freq: Status: Active Protocol: Document 04/09/19 12:11 MB (Rec: 04/09/19 12:44 MB [id number]) Current Condition History of Current Condition Onset Date 04/03/19 History of Current Condition On 04/02/19, pt went to acupuncture for her monthly visit. She is a runner. She was supposed to run a 5K on and she hurt so badly when she got up that she could not walk down the steps. She went to the ED. CT abdomen was negative. Driving is the worst. She prefers standing to sitting. She has numbness down her right leg. Steps are no longer problematic. She goes to acupuncture once a month and massage therapy once a month. She runs 10-15 miles a week. She works at home and sits on a yoga ball. Pt reports 7-8/10 pain in right SI and down lateral anterior and posterior right leg. She has numbness in her calf and foot. She sleeps on her left side with a pillow between her legs . PMH includes DMII, depression, gastric bypass and cyst removal right foot and came back, pt had one episode of back pain on the right 15 years ago PT-OP-C Subjective Start: 04/09/19 12:08 Freq: Status: Active Protocol: Document 05/06/19 12:21 SP (Rec: 05/06/19 13:02 SP [id number]) OP-PT Subjective Patient Comments Patient Comments Pt state is walking more normally, has a follow up with physician to review results of MRI this fri. Is compliant with HEP good challenge with TB standing and has to look during DF to see is performing correctly. Numbness/ tingling in R lateral hoff of RLE, face and R arm has gone away. She stated doesn't trust RLE when gets in/out of her friend 's elevated trunk, watches her R leg is doing what wanting it to do. The racquet ball at [facility] muscle massage helps alot and did see her massage therapist last week as well. Patient Reported Progress Improving PT-OP-J Posture/Palpation/Skin Start: 04/09/19 12:08 Freq: Status: Active Protocol: Document 04/09/19 12:11 MB (Rec: 04/09/19 12:55 MB [id number]) Posture Evaluation Comments Posture Comments Standing: Dowager's hump, decreased thoracic kyphosis, increased lumbar lordosis and anterior pelvic tilt, right iliac crest higher than the left, increased soft tissue. PT-OP-M Strength Start: 04/09/19 12:08 Freq: Status: Active Protocol: Document 04/09/19 12:11 MB (Rec: 04/09/19 12:57 MB [id number]) Hip Strength Hip Manual Muscle Testing Left Flexion (L2) 4 Good Abduction 4 Good Right Flexion (L2) 3- Fair- Abduction 3- Fair- Comments Supine Knee Strength Knee Manual Muscle Testing Left Flexion (S2) 5 Normal Extension (L3) 5 Normal Comments Supine Right Flexion (S2) 5 Normal Extension (L3) 5 Normal Comments Supine Ankle/Foot Strength Ankle and Foot Manual Muscle Testing Left Dorsiflexion (L4) 5 Normal Plantarflexion (S1) 5 Normal Right Dorsiflexion (L4) 4 Good Plantarflexion (S1) 4 Good Toe Strength Toe Manual Muscle Testing Left Great Toe Flexion 5 Normal Right Great Toe Extension 4 Good PT-OP-Q Treatments Start: 04/09/19 12:08 Freq: Status: Active Protocol: Document 05/06/19 12:21 SP (Rec: 05/06/19 13:02 SP [id number]) Therapeutic Exercises Supine Exercises LS rotation stretch Supine Exercise Name QL Side bilateral Reps/Minutes 30 x2 ab DL lift Side bilateral Reps/Minutes 2x5 Comments PPT core facilitation ab DL heel slide Side bilateral Reps/Minutes 2x5 Comments PPT core facilitation Hip adductor stretch Comments Performed B with feet together in hook lying Hip rotator stretch Comments Performed B and added to HEP Pelvic realignment exercises Reps/Minutes 3 sec x5 each Comments Performed this date and re-ed on proper performance Standing Exercises lateral step down Side bilateral Equipment Used 4 step Reps/Minutes 2x10 Comments level pelvis, knee with and behind toes PT-OP-T Assessment and Plan Start: 04/09/19 12:08 Freq: Status: Active Protocol: Document 05/06/19 12:21 SP (Rec: 05/06/19 13:02 SP [id number]) Physical Therapy Assessment Goals 4 Nursing Home Goal (LTG) Pt will perform progressive HEP with I including pelvic realignment, flexibility, core and LE strengthening and balance exercises by 06/10/19. LTG Duration 8 weeks 3 Maintenance Helper Utility Engineer Goal (LTG) Pt will report a 75% improvement in back and RLE pain and paresthesias by . LTG Duration 8 weeks 2 Maintenance Helper Utility Engineer Goal (LTG) Pt will present with B hip flexion and extension, ankle DF and great toe extension strength to 5/5 by 06/10/19. LTG Duration 8 weeks 1 Nursing Home Goal (LTG) Pt will present with an improved Oswestry LBP scale score to reflect no more than 20% impairment by 06/10/19. LTG Duration 8 weeks Assessment Summary Assessment Tx focused on HEP review, added core and glut facilitation supine DL heel slide and standing lateral step down with cues for bilateral PPT stabilzation with positive results. Pt will follow up with regarding MRI result this fri for continued numbness in R lateral lower leg. No worsening or decrease during tx. Physical Therapy Plan Frequency and Duration Frequency of Treatment 2x/Week Duration of Treatment 8 weeks Plan of Care Start Date 04/09/19 Plan of Care End Date 06/10/19 Therapeutic Interventions Therapeutic Interventions Aquatic Therapy,Balance Training,Gait Training,Home Exercise Program,Manual Therapy,Neuromuscular Re- education,Patient/Caregiver Education,Self-Care/Home Management,Soft Tissue Mobilization,Taping, Therapeutic Exercises Modalities Cold Pack/Ice Massage,Electric Stimulation,Hot Packs, Ultrasound Next Visit Focus/Plan Next Note Type Treatment Note Next Visit Plan assess added core DL heel slide and stand lateral step down initiated last tx. Continue per PT POC: Progress HEP as appropriate and consider ongoing rib recoil treatment for QL and core strengthening
--- NOTE | 2019-05-09 09:44 | PT.OTN ---
Current Diagnoses Radiculopathy, lumbar region (05/09/19) Physical Therapy Treatment Note PT-OP-A Visit Information Start: 04/09/19 12:08 Freq: Status: Active Protocol: Document 05/09/19 09:05 MB (Rec: 05/09/19 09:44 MB [id number]) Out-Patient Physical Therapy Visit Information Visit Information Visit Type Treatment Note Visit Note [employer] and pt has 30 visits Visit Start Time 09:05 Visit Stop Time 09:45 Total Visit Minutes 40 Visit Number 02/04 Number of CRYSTAL FLAT GRINDER Visits 1 PT-OP-B Current Condition Start: 04/09/19 12:08 Freq: Status: Active Protocol: Document 04/09/19 12:11 MB (Rec: 04/09/19 12:44 MB [id number]) Current Condition History of Current Condition Onset Date 04/03/19 History of Current Condition On 04/02/19, pt went to acupuncture for her monthly visit. She is a runner. She was supposed to run a 5K on and she hurt so badly when she got up that she could not walk down the steps. She went to the ED. CT abdomen was negative. Driving is the worst. She prefers standing to sitting. She has numbness down her right leg. Steps are no longer problematic. She goes to acupuncture once a month and massage therapy once a month. She runs 10-15 miles a week. She works at home and sits on a yoga ball. Pt reports 7-8/10 pain in right SI and down lateral anterior and posterior right leg. She has numbness in her calf and foot. She sleeps on her left side with a pillow between her legs . PMH includes DMII, depression, gastric bypass and cyst removal right foot and came back, pt had one episode of back pain on the right 15 years ago PT-OP-C Subjective Start: 04/09/19 12:08 Freq: Status: Active Protocol: Document 05/09/19 09:05 MB (Rec: 05/09/19 09:44 MB [id number]) OP-PT Subjective Patient Comments Patient Comments Pt states that she is almost walking normal. She has no more leg pain but has the numbness in her right leg. She has a little numbness in her right arm and upper right lateral face. She does notice that if she walks a long distance or increase speed, the inside of her right foot hurts like an ache. She sees Dr. Hall today to review lumbar and cervical MRIs. Her energy level is lower. PT-OP-J Posture/Palpation/Skin Start: 04/09/19 12:08 Freq: Status: Active Protocol: Document 04/09/19 12:11 MB (Rec: 04/09/19 12:55 MB [id number]) Posture Evaluation Comments Posture Comments Standing: Dowager's hump, decreased thoracic kyphosis, increased lumbar lordosis and anterior pelvic tilt, right iliac crest higher than the left, increased soft tissue. PT-OP-M Strength Start: 04/09/19 12:08 Freq: Status: Active Protocol: Document 04/09/19 12:11 MB (Rec: 04/09/19 12:57 MB [id number]) Hip Strength Hip Manual Muscle Testing Left Flexion (L2) 4 Good Abduction 4 Good Right Flexion (L2) 3- Fair- Abduction 3- Fair- Comments Supine Knee Strength Knee Manual Muscle Testing Left Flexion (S2) 5 Normal Extension (L3) 5 Normal Comments Supine Right Flexion (S2) 5 Normal Extension (L3) 5 Normal Comments Supine Ankle/Foot Strength Ankle and Foot Manual Muscle Testing Left Dorsiflexion (L4) 5 Normal Plantarflexion (S1) 5 Normal Right Dorsiflexion (L4) 4 Good Plantarflexion (S1) 4 Good Toe Strength Toe Manual Muscle Testing Left Great Toe Flexion 5 Normal Right Great Toe Extension 4 Good PT-OP-Q Treatments Start: 04/09/19 12:08 Freq: Status: Active Protocol: Document 05/09/19 09:05 MB (Rec: 05/09/19 09:44 MB [id number]) Therapeutic Exercises Supine Exercises Abdominal drawing in progression Comments Drawing in, mini lumbar rotation, HS, mini july ab DL lift Comments D/cd this date ab DL heel slide Comments D/cd this date and substitute single leg slide Negro stretch Comments B 30 sec stretch today Pelvic realignment exercises Reps/Minutes 3 sec x5 each Comments Performed this date and re-ed on proper performance Standing Exercises lateral step down Comments 6 step and pt maintains pelvic alignment and 10 reps each leg Self-massage glutes with racquet ball Comments Performed today PT-OP-T Assessment and Plan Start: 04/09/19 12:08 Freq: Status: Active Protocol: Document 05/09/19 09:05 MB (Rec: 05/09/19 09:44 MB [id number]) Physical Therapy Assessment Rehab Potential Rehabilitation Potential Good Evaluation Complexity Number of Personal Factors/Comorbidities 1-2 Number of Body Systems Impaired 1-2 Impairments Impairments Activity Tolerance,Balance, Gait,Pain,Posture,ROM, Sensation,Soft Tissue Mobility ,Strength Goals 4 Fifth Hand Goal (LTG) Pt will perform progressive HEP with I including pelvic realignment, flexibility, core and LE strengthening and balance exercises by 06/10/19. LTG Duration 8 weeks 3 Senior Care Goal (LTG) Pt will report a 75% improvement in back and RLE pain and paresthesias by . LTG Duration 8 weeks 2 Senior Care Goal (LTG) Pt will present with B hip flexion and extension, ankle DF and great toe extension strength to 5/5 by 06/10/19. LTG Duration 8 weeks 1 Fifth Hand Goal (LTG) Pt will present with an improved Oswestry LBP scale score to reflect no more than 20% impairment by 06/10/19. LTG Duration 8 weeks Assessment Summary Assessment Pt to follow-up with doctor today about lumbar and cervical and brain MRIs and PT does review reports today and notes changes. Her lumbar changes may be contributors to her right LE sxs. Revised abdominal progression and reviewed step exercise. Progress prone lying/extension . This date, ed pt in heel-toe gait. Physical Therapy Plan Frequency and Duration Frequency of Treatment 2x/Week Duration of Treatment 8 weeks Plan of Care Start Date 04/09/19 Plan of Care End Date 06/10/19 Therapeutic Interventions Therapeutic Interventions Aquatic Therapy,Balance Training,Gait Training,Home Exercise Program,Manual Therapy,Neuromuscular Re- education,Patient/Caregiver Education,Self-Care/Home Management,Soft Tissue Mobilization,Taping, Therapeutic Exercises Modalities Cold Pack/Ice Massage,Electric Stimulation,Hot Packs, Ultrasound Other Referrals/Consults Referrals/Consults Recommended Possible referral to spinal specialist vs neurologist given face and UE sxs as well as lumbar spine changes Next Visit Focus/Plan Next Note Type Treatment Note Next Visit Plan Add gentle prone lying for extension
--- NOTE | 2019-05-13 13:45 | PT.OTN ---
Current Diagnoses Radiculopathy, lumbar region (05/13/19) Physical Therapy Treatment Note PT-OP-A Visit Information Start: 04/09/19 12:08 Freq: Status: Active Protocol: Document 05/13/19 13:02 MB (Rec: 05/13/19 13:45 MB [id number]) Out-Patient Physical Therapy Visit Information Visit Information Visit Type Treatment Note Visit Note [employer]BS and pt has 30 visits Visit Start Time 13:02 Visit Stop Time 13:42 Total Visit Minutes 40 Visit Number 03/06 Number of ARTIFICIAL BREEDING DISTRIBUTOR Visits 1 PT-OP-B Current Condition Start: 04/09/19 12:08 Freq: Status: Active Protocol: Document 04/09/19 12:11 MB (Rec: 04/09/19 12:44 MB [id number]) Current Condition History of Current Condition Onset Date 04/03/19 History of Current Condition On 04/02/19, pt went to acupuncture for her monthly visit. She is a runner. She was supposed to run a 5K on and she hurt so badly when she got up that she could not walk down the steps. She went to the ED. CT abdomen was negative. Driving is the worst. She prefers standing to sitting. She has numbness down her right leg. Steps are no longer problematic. She goes to acupuncture once a month and massage therapy once a month. She runs 10-15 miles a week. She works at home and sits on a yoga ball. Pt reports 7-8/10 pain in right SI and down lateral anterior and posterior right leg. She has numbness in her calf and foot. She sleeps on her left side with a pillow between her legs . PMH includes DMII, depression, gastric bypass and cyst removal right foot and came back, pt had one episode of back pain on the right 15 years ago PT-OP-C Subjective Start: 04/09/19 12:08 Freq: Status: Active Protocol: Document 05/13/19 13:02 MB (Rec: 05/13/19 13:45 MB [id number]) OP-PT Subjective Patient Comments Patient Comments Pt states that she is still numb in right lower leg and foot and had a little bit of numbness in right arm when on the computer this date. She had an episode of 3-4 minutes of sharp pain in right groin and LB Monday. She was active 9 out of 13 hours. Her step count was higher. Pt will have thoracic MRI, was told she has a L4 problem, will have EMG this and return to doctor on Monday. PT-OP-J Posture/Palpation/Skin Start: 04/09/19 12:08 Freq: Status: Active Protocol: Document 04/09/19 12:11 MB (Rec: 04/09/19 12:55 MB [id number]) Posture Evaluation Comments Posture Comments Standing: Dowager's hump, decreased thoracic kyphosis, increased lumbar lordosis and anterior pelvic tilt, right iliac crest higher than the left, increased soft tissue. PT-OP-M Strength Start: 04/09/19 12:08 Freq: Status: Active Protocol: Document 04/09/19 12:11 MB (Rec: 04/09/19 12:57 MB [id number]) Hip Strength Hip Manual Muscle Testing Left Flexion (L2) 4 Good Abduction 4 Good Right Flexion (L2) 3- Fair- Abduction 3- Fair- Comments Supine Knee Strength Knee Manual Muscle Testing Left Flexion (S2) 5 Normal Extension (L3) 5 Normal Comments Supine Right Flexion (S2) 5 Normal Extension (L3) 5 Normal Comments Supine Ankle/Foot Strength Ankle and Foot Manual Muscle Testing Left Dorsiflexion (L4) 5 Normal Plantarflexion (S1) 5 Normal Right Dorsiflexion (L4) 4 Good Plantarflexion (S1) 4 Good Toe Strength Toe Manual Muscle Testing Left Great Toe Flexion 5 Normal Right Great Toe Extension 4 Good PT-OP-Q Treatments Start: 04/09/19 12:08 Freq: Status: Active Protocol: Document 05/13/19 13:02 MB (Rec: 05/13/19 13:45 MB [id number]) Therapeutic Exercises Supine Exercises Racquet ball release glute near sacrum at night Comments Performed today Prone Exercises Prone lying and Child's pose Comments Performed this date and added to HEP to perform 2x/day Manual Therapy Treatment Soft Tissue Mobilization Counterstrain Comments Pt agreeable to perform today to assess and treat fascial tension. PT assesses and treats B stacks: trigeminal and thoracic arterial PT-OP-T Assessment and Plan Start: 04/09/19 12:08 Freq: Status: Active Protocol: Document 05/13/19 13:02 MB (Rec: 05/13/19 13:45 MB [id number]) Physical Therapy Assessment Rehab Potential Rehabilitation Potential Good Evaluation Complexity Number of Personal Factors/Comorbidities 1-2 Number of Body Systems Impaired 1-2 Impairments Impairments Activity Tolerance,Balance, Gait,Pain,Posture,ROM, Sensation,Soft Tissue Mobility ,Strength Goals 4 Shelter Goal (LTG) Pt will perform progressive HEP with I including pelvic realignment, flexibility, core and LE strengthening and balance exercises by 06/10/19. LTG Duration 8 weeks 3 Senior Budget Analyst Goal (LTG) Pt will report a 75% improvement in back and RLE pain and paresthesias by . LTG Duration 8 weeks 2 Senior Budget Analyst Goal (LTG) Pt will present with B hip flexion and extension, ankle DF and great toe extension strength to 5/5 by 06/10/19. LTG Duration 8 weeks 1 Senior Budget Analyst Goal (LTG) Pt will present with an improved Oswestry LBP scale score to reflect no more than 20% impairment by 06/10/19. LTG Duration 8 weeks Assessment Summary Assessment Monitor response to gentle extension position in prone. Progress as appropriate. Await further work-up to determine if will con't PT. Physical Therapy Plan Frequency and Duration Frequency of Treatment 2x/Week Duration of Treatment 8 weeks Plan of Care Start Date 04/09/19 Plan of Care End Date 06/10/19 Therapeutic Interventions Therapeutic Interventions Aquatic Therapy,Balance Training,Gait Training,Home Exercise Program,Manual Therapy,Neuromuscular Re- education,Patient/Caregiver Education,Self-Care/Home Management,Soft Tissue Mobilization,Taping, Therapeutic Exercises Modalities Cold Pack/Ice Massage,Electric Stimulation,Hot Packs, Ultrasound Other Referrals/Consults Referrals/Consults Recommended Possible referral to spinal specialist vs neurologist given face and UE sxs as well as lumbar spine changes Next Visit Focus/Plan Next Note Type Treatment Note Next Visit Plan Review exercises, progress as appropriate
--- NOTE | 2019-05-20 08:57 | PT.OTN ---
Current Diagnoses Radiculopathy, lumbar region (05/20/19) Physical Therapy Treatment Note PT-OP-A Visit Information Start: 04/09/19 12:08 Freq: Status: Active Protocol: Document 05/20/19 08:18 MB (Rec: 05/20/19 08:57 MB [id number]) Out-Patient Physical Therapy Visit Information Visit Information Visit Type Treatment Note Visit Note [employer]BS and pt has 30 visits Visit Start Time 08:18 Visit Stop Time 08:56 Total Visit Minutes 38 Visit Number 04/06 Number of IN TUBE CONVERSION TECHNICIAN Visits 1 PT-OP-B Current Condition Start: 04/09/19 12:08 Freq: Status: Active Protocol: Document 04/09/19 12:11 MB (Rec: 04/09/19 12:44 MB [id number]) Current Condition History of Current Condition Onset Date 04/03/19 History of Current Condition On 04/02/19, pt went to acupuncture for her monthly visit. She is a runner. She was supposed to run a 5K on and she hurt so badly when she got up that she could not walk down the steps. She went to the ED. CT abdomen was negative. Driving is the worst. She prefers standing to sitting. She has numbness down her right leg. Steps are no longer problematic. She goes to acupuncture once a month and massage therapy once a month. She runs 10-15 miles a week. She works at home and sits on a yoga ball. Pt reports 7-8/10 pain in right SI and down lateral anterior and posterior right leg. She has numbness in her calf and foot. She sleeps on her left side with a pillow between her legs . PMH includes DMII, depression, gastric bypass and cyst removal right foot and came back, pt had one episode of back pain on the right 15 years ago PT-OP-C Subjective Start: 04/09/19 12:08 Freq: Status: Active Protocol: Document 05/20/19 08:18 MB (Rec: 05/20/19 08:57 MB [id number]) OP-PT Subjective Patient Comments Patient Comments Pt had thoracic MRI and has not yet talked with doctor about results. She was told that she has right L4 nerve root issues per EMG. She has right quad pain after the EMG. She has had muscle spasms in her right quads at night. PT-OP-J Posture/Palpation/Skin Start: 04/09/19 12:08 Freq: Status: Active Protocol: Document 04/09/19 12:11 MB (Rec: 04/09/19 12:55 MB [id number]) Posture Evaluation Comments Posture Comments Standing: Dowager's hump, decreased thoracic kyphosis, increased lumbar lordosis and anterior pelvic tilt, right iliac crest higher than the left, increased soft tissue. PT-OP-M Strength Start: 04/09/19 12:08 Freq: Status: Active Protocol: Document 04/09/19 12:11 MB (Rec: 04/09/19 12:57 MB [id number]) Hip Strength Hip Manual Muscle Testing Left Flexion (L2) 4 Good Abduction 4 Good Right Flexion (L2) 3- Fair- Abduction 3- Fair- Comments Supine Knee Strength Knee Manual Muscle Testing Left Flexion (S2) 5 Normal Extension (L3) 5 Normal Comments Supine Right Flexion (S2) 5 Normal Extension (L3) 5 Normal Comments Supine Ankle/Foot Strength Ankle and Foot Manual Muscle Testing Left Dorsiflexion (L4) 5 Normal Plantarflexion (S1) 5 Normal Right Dorsiflexion (L4) 4 Good Plantarflexion (S1) 4 Good Toe Strength Toe Manual Muscle Testing Left Great Toe Flexion 5 Normal Right Great Toe Extension 4 Good PT-OP-Q Treatments Start: 04/09/19 12:08 Freq: Status: Active Protocol: Document 05/20/19 08:18 MB (Rec: 05/20/19 08:57 MB [id number]) Therapeutic Exercises Supine Exercises ab DL lift Comments Discussed d/c, con't heels down ab DL heel slide Comments As above Racquet ball release glute near sacrum at night Comments Performed today Negro stretch Comments B 30 sec stretch today Prone Exercises Prone lying and Child's pose Comments Performed this date and added to HEP to perform 2x/day Standing Exercises Hip extension and abduction L reciprocal with level 1 band Comments Performed today, reciprocal PT-OP-T Assessment and Plan Start: 04/09/19 12:08 Freq: Status: Active Protocol: Document 05/20/19 08:18 MB (Rec: 05/20/19 08:57 MB [id number]) Physical Therapy Assessment Rehab Potential Rehabilitation Potential Good Evaluation Complexity Number of Personal Factors/Comorbidities 1-2 Number of Body Systems Impaired 1-2 Impairments Impairments Activity Tolerance,Balance, Gait,Pain,Posture,ROM, Sensation,Soft Tissue Mobility ,Strength Goals 4 Correction Goal (LTG) Pt will perform progressive HEP with I including pelvic realignment, flexibility, core and LE strengthening and balance exercises by 07/19/2019 . 05/20/2019: Pt is performing progressive HEP. LTG Duration 8 weeks 3 Correction Goal (LTG) Pt will report a 75% improvement in back and RLE pain and paresthesias by 2019. 05/20/2019: Pt reports a 50% improvement in right LB and LE pain. LTG Duration 8 weeks 2 Correction Goal (LTG) Pt will present with R hip flexion and extension, ankle DF and great toe extension strength to 5/5 by 07/19/2019. 05/20/2019: Pt presents with LLE MMT hip flexion, knee flexion and extension, DF and great toe extension to 5/5. She presents with 4/5 left hip abduction strength. RLE is weaker with hip flexion 4/5, hip abduction 4/5, right knee extension 4/5 (fatigues), right knee flexion 4/5, right ankle DF 3+/5 and great toe extension 3+/5. LTG Duration 8 weeks 1 Correction Goal (LTG) Pt will present with an improved Oswestry LBP scale score to reflect no more than 20% impairment by 07/19/2019. 05/20/2019: Oswestry LBP scale score reflects 44% impairment. LTG Duration 8 weeks Assessment Summary Assessment Pt has progressed towards the following PT goals since starting PT: performance of HEP, reports of 50% improvement in right LB and groin pain, and Oswestry LBP score. PT is concerned about ongoing right L4 distribution numbness and weakness in right LE as far as affecting pt's return to running and overall quality of life in setting of known disc problem. She occ trips over her right foot as well as testing weak with MMT. She will follow-up with PCP today and PT recommends consult with spinal specialist . Will con't PT efforts of strengthening. She denies bowel and bladder problems. Physical Therapy Plan Frequency and Duration Frequency of Treatment 2x/Week Duration of Treatment 8 weeks Plan of Care Start Date 05/20/19 Plan of Care End Date 07/19/19 Therapeutic Interventions Therapeutic Interventions Aquatic Therapy,Balance Training,Gait Training,Home Exercise Program,Manual Therapy,Neuromuscular Re- education,Patient/Caregiver Education,Self-Care/Home Management,Soft Tissue Mobilization,Taping, Therapeutic Exercises Modalities Cold Pack/Ice Massage,Electric Stimulation,Hot Packs, Ultrasound Other Referrals/Consults Referrals/Consults Recommended Possible referral to spinal specialist vs neurologist given face and UE sxs as well as lumbar spine changes Next Visit Focus/Plan Next Note Type Treatment Note Next Visit Plan Consider multifidi and wall squat. Con't Counterstrain to address fascial changes.
--- NOTE | 2019-05-20 08:58 | PT.OPPOC ---
Physical, Occupational & Speech Therapy At [facility] Current Diagnoses Radiculopathy, lumbar region (05/20/19) Visit Care Team Role Provider Type Kj Hall MD Primary Care Provider Physician Specialty: Family Practice Address: [address] [place] [address], [facility] [place], [address] Email: [email or web address] Alessia Tarango MD Attending Provider Physician Specialty: [facility] Address: [address] [place] [address], [facility], [address] Email: [email or web address] Plan Of Care PT-OP-T Assessment and Plan Start: 04/09/19 12:08 Freq: Status: Active Protocol: Document 05/20/19 08:18 MB (Rec: 05/20/19 08:57 MB [id number]) Physical Therapy Assessment Rehab Potential Rehabilitation Potential Good Evaluation Complexity Number of Personal Factors/Comorbidities 1-2 Number of Body Systems Impaired 1-2 Impairments Impairments Activity Tolerance,Balance, Gait,Pain,Posture,ROM, Sensation,Soft Tissue Mobility ,Strength Goals 4 Snf Goal (LTG) Pt will perform progressive HEP with I including pelvic realignment, flexibility, core and LE strengthening and balance exercises by 07/19/2019 . 05/20/2019: Pt is performing progressive HEP. LTG Duration 8 weeks 3 Almond Blancher Operator Goal (LTG) Pt will report a 75% improvement in back and RLE pain and paresthesias by 2019. 05/20/2019: Pt reports a 50% improvement in right LB and LE pain. LTG Duration 8 weeks 2 Almond Blancher Operator Goal (LTG) Pt will present with R hip flexion and extension, ankle DF and great toe extension strength to 5/5 by 07/19/2019. 05/20/2019: Pt presents with LLE MMT hip flexion, knee flexion and extension, DF and great toe extension to 5/5. She presents with 4/5 left hip abduction strength. RLE is weaker with hip flexion 4/5, hip abduction 4/5, right knee extension 4/5 (fatigues), right knee flexion 4/5, right ankle DF 3+/5 and great toe extension 3+/5. LTG Duration 8 weeks 1 Almond Blancher Operator Goal (LTG) Pt will present with an improved Oswestry LBP scale score to reflect no more than 20% impairment by 07/19/2019. 05/20/2019: Oswestry LBP scale score reflects 44% impairment. LTG Duration 8 weeks Assessment Summary Assessment Pt has progressed towards the following PT goals since starting PT: performance of HEP, reports of 50% improvement in right LB and groin pain, and Oswestry LBP score. PT is concerned about ongoing right L4 distribution numbness and weakness in right LE as far as affecting pt's return to running and overall quality of life in setting of known disc problem. She occ trips over her right foot as well as testing weak with MMT. She will follow-up with PCP today and PT recommends consult with spinal specialist . Will con't PT efforts of strengthening. She denies bowel and bladder problems. Physical Therapy Plan Frequency and Duration Frequency of Treatment 2x/Week Duration of Treatment 8 weeks Plan of Care Start Date 05/20/19 Plan of Care End Date 07/19/19 Therapeutic Interventions Therapeutic Interventions Aquatic Therapy,Balance Training,Gait Training,Home Exercise Program,Manual Therapy,Neuromuscular Re- education,Patient/Caregiver Education,Self-Care/Home Management,Soft Tissue Mobilization,Taping, Therapeutic Exercises Modalities Cold Pack/Ice Massage,Electric Stimulation,Hot Packs, Ultrasound Other Referrals/Consults Referrals/Consults Recommended Possible referral to spinal specialist vs neurologist given face and UE sxs as well as lumbar spine changes Next Visit Focus/Plan Next Note Type Treatment Note Next Visit Plan Consider multifidi and wall squat. Con't Counterstrain to address fascial changes. Plan of Care Dates Plan of Care Start Date 05/20/19 Plan of Care End Date 07/19/19 Electronically Signed by: Natalie Aden, PT 05/20/19 [id number] Please Sign and Return: I have reviewed this Plan of Care and certify that the skilled therapy services above are required to meet the patient?s needs. Physician Signature Date Printed Name and Credentials Clinical Instructor Signature Printed Name and Credentials
--- NOTE | 2019-05-27 12:56 | PT.OTN ---
Current Diagnoses Radiculopathy, lumbar region (05/27/19) Physical Therapy Treatment Note PT-OP-A Visit Information Start: 04/09/19 12:08 Freq: Status: Active Protocol: Document 05/27/19 12:14 MB (Rec: 05/27/19 12:55 MB [id number]) Out-Patient Physical Therapy Visit Information Visit Information Visit Type Treatment Note Visit Note [employer]BS and pt has 30 visits Visit Start Time 12:14 Visit Stop Time 12:54 Total Visit Minutes 40 Visit Number 05/06 Number of LIVING MANAGER Visits 1 PT-OP-B Current Condition Start: 04/09/19 12:08 Freq: Status: Active Protocol: Document 04/09/19 12:11 MB (Rec: 04/09/19 12:44 MB [id number]) Current Condition History of Current Condition Onset Date 04/03/19 History of Current Condition On 04/02/19, pt went to acupuncture for her monthly visit. She is a runner. She was supposed to run a 5K on and she hurt so badly when she got up that she could not walk down the steps. She went to the ED. CT abdomen was negative. Driving is the worst. She prefers standing to sitting. She has numbness down her right leg. Steps are no longer problematic. She goes to acupuncture once a month and massage therapy once a month. She runs 10-15 miles a week. She works at home and sits on a yoga ball. Pt reports 7-8/10 pain in right SI and down lateral anterior and posterior right leg. She has numbness in her calf and foot. She sleeps on her left side with a pillow between her legs . PMH includes DMII, depression, gastric bypass and cyst removal right foot and came back, pt had one episode of back pain on the right 15 years ago PT-OP-C Subjective Start: 04/09/19 12:08 Freq: Status: Active Protocol: Document 05/27/19 12:14 MB (Rec: 05/27/19 12:55 MB [id number]) OP-PT Subjective Patient Comments Patient Comments Pt states that she saw Dr. Hall and he told her that he does not have any concerns about her cervical or thoracic spine. She was told it is her L4 nerve root. She is awaiting call from Dr. Prasad's office, neurosurgeon. She was put on BP medication. She is getting over a cold. Yesterday, she got her 9000 steps d/t the dogs. She has tripped over her right foot a couple of times. PT-OP-J Posture/Palpation/Skin Start: 04/09/19 12:08 Freq: Status: Active Protocol: Document 04/09/19 12:11 MB (Rec: 04/09/19 12:55 MB [id number]) Posture Evaluation Comments Posture Comments Standing: Dowager's hump, decreased thoracic kyphosis, increased lumbar lordosis and anterior pelvic tilt, right iliac crest higher than the left, increased soft tissue. PT-OP-M Strength Start: 04/09/19 12:08 Freq: Status: Active Protocol: Document 04/09/19 12:11 MB (Rec: 04/09/19 12:57 MB [id number]) Hip Strength Hip Manual Muscle Testing Left Flexion (L2) 4 Good Abduction 4 Good Right Flexion (L2) 3- Fair- Abduction 3- Fair- Comments Supine Knee Strength Knee Manual Muscle Testing Left Flexion (S2) 5 Normal Extension (L3) 5 Normal Comments Supine Right Flexion (S2) 5 Normal Extension (L3) 5 Normal Comments Supine Ankle/Foot Strength Ankle and Foot Manual Muscle Testing Left Dorsiflexion (L4) 5 Normal Plantarflexion (S1) 5 Normal Right Dorsiflexion (L4) 4 Good Plantarflexion (S1) 4 Good Toe Strength Toe Manual Muscle Testing Left Great Toe Flexion 5 Normal Right Great Toe Extension 4 Good PT-OP-Q Treatments Start: 04/09/19 12:08 Freq: Status: Active Protocol: Document 05/27/19 12:14 MB (Rec: 05/27/19 12:55 MB [id number]) Manual Therapy Treatment Soft Tissue Mobilization Counterstrain Comments Pt agreeable to perform today to assess and treat fascial tension. PT assesses and treats B stacks: LE pre- ganglionic neural PT-OP-T Assessment and Plan Start: 04/09/19 12:08 Freq: Status: Active Protocol: Document 05/27/19 12:14 MB (Rec: 05/27/19 12:55 MB [id number]) Physical Therapy Assessment Rehab Potential Rehabilitation Potential Good Evaluation Complexity Number of Personal Factors/Comorbidities 1-2 Number of Body Systems Impaired 1-2 Impairments Impairments Activity Tolerance,Balance, Gait,Pain,Posture,ROM, Sensation,Soft Tissue Mobility ,Strength Goals 4 Rehabilitation Tech Goal (LTG) Pt will perform progressive HEP with I including pelvic realignment, flexibility, core and LE strengthening and balance exercises by 07/19/2019 . 05/20/2019: Pt is performing progressive HEP. LTG Duration 8 weeks 3 Group Home Goal (LTG) Pt will report a 75% improvement in back and RLE pain and paresthesias by 2019. 05/20/2019: Pt reports a 50% improvement in right LB and LE pain. LTG Duration 8 weeks 2 Group Home Goal (LTG) Pt will present with R hip flexion and extension, ankle DF and great toe extension strength to 5/5 by 07/19/2019. 05/20/2019: Pt presents with LLE MMT hip flexion, knee flexion and extension, DF and great toe extension to 5/5. She presents with 4/5 left hip abduction strength. RLE is weaker with hip flexion 4/5, hip abduction 4/5, right knee extension 4/5 (fatigues), right knee flexion 4/5, right ankle DF 3+/5 and great toe extension 3+/5. LTG Duration 8 weeks 1 Group Home Goal (LTG) Pt will present with an improved Oswestry LBP scale score to reflect no more than 20% impairment by 07/19/2019. 05/20/2019: Oswestry LBP scale score reflects 44% impairment. LTG Duration 8 weeks Assessment Summary Assessment Con't to progress exercises as tolerated. Counterstrain this date and pt with increased neural fascial tension LEs. Physical Therapy Plan Frequency and Duration Frequency of Treatment 2x/Week Duration of Treatment 8 weeks Plan of Care Start Date 05/20/19 Plan of Care End Date 07/19/19 Therapeutic Interventions Therapeutic Interventions Aquatic Therapy,Balance Training,Gait Training,Home Exercise Program,Manual Therapy,Neuromuscular Re- education,Patient/Caregiver Education,Self-Care/Home Management,Soft Tissue Mobilization,Taping, Therapeutic Exercises Modalities Cold Pack/Ice Massage,Electric Stimulation,Hot Packs, Ultrasound Other Referrals/Consults Referrals/Consults Recommended Possible referral to spinal specialist vs neurologist given face and UE sxs as well as lumbar spine changes Next Visit Focus/Plan Next Note Type Treatment Note Next Visit Plan Consider multifidi, crab walking and wall squat. Consider ankle eversion and DF exercises if she can perform. Consider trying elliptical. Con't Counterstrain to address fascial changes.
--- NOTE | 2019-06-05 15:14 | PT.OTN ---
Current Diagnoses Radiculopathy, lumbar region (06/05/19) Physical Therapy Treatment Note PT-OP-A Visit Information Start: 04/09/19 12:08 Freq: Status: Active Protocol: Document 06/05/19 14:35 MB (Rec: 06/05/19 15:14 MB [id number]) Out-Patient Physical Therapy Visit Information Visit Information Visit Type Treatment Note Visit Note [employer]BS and pt has 30 visits Visit Start Time 14:35 Visit Stop Time 15:15 Total Visit Minutes 40 Visit Number PT-OP-B Current Condition Start: 04/09/19 12:08 Freq: Status: Active Protocol: Document 04/09/19 12:11 MB (Rec: 04/09/19 12:44 MB [id number]) Current Condition History of Current Condition Onset Date 04/03/19 History of Current Condition On 04/02/19, pt went to acupuncture for her monthly visit. She is a runner. She was supposed to run a 5K on and she hurt so badly when she got up that she could not walk down the steps. She went to the ED. CT abdomen was negative. Driving is the worst. She prefers standing to sitting. She has numbness down her right leg. Steps are no longer problematic. She goes to acupuncture once a month and massage therapy once a month. She runs 10-15 miles a week. She works at home and sits on a yoga ball. Pt reports 7-8/10 pain in right SI and down lateral anterior and posterior right leg. She has numbness in her calf and foot. She sleeps on her left side with a pillow between her legs . PMH includes DMII, depression, gastric bypass and cyst removal right foot and came back, pt had one episode of back pain on the right 15 years ago PT-OP-C Subjective Start: 04/09/19 12:08 Freq: Status: Active Protocol: Document 06/05/19 14:35 MB (Rec: 06/05/19 15:14 MB [id number]) OP-PT Subjective Patient Comments Patient Comments Pt has not yet heard back from spinal surgeon office. She con't to trip over her foot some. She went bowling and tripped over her foot. PT-OP-J Posture/Palpation/Skin Start: 04/09/19 12:08 Freq: Status: Active Protocol: Document 04/09/19 12:11 MB (Rec: 04/09/19 12:55 MB [id number]) Posture Evaluation Comments Posture Comments Standing: Dowager's hump, decreased thoracic kyphosis, increased lumbar lordosis and anterior pelvic tilt, right iliac crest higher than the left, increased soft tissue. PT-OP-M Strength Start: 04/09/19 12:08 Freq: Status: Active Protocol: Document 04/09/19 12:11 MB (Rec: 04/09/19 12:57 MB [id number]) Hip Strength Hip Manual Muscle Testing Left Flexion (L2) 4 Good Abduction 4 Good Right Flexion (L2) 3- Fair- Abduction 3- Fair- Comments Supine Knee Strength Knee Manual Muscle Testing Left Flexion (S2) 5 Normal Extension (L3) 5 Normal Comments Supine Right Flexion (S2) 5 Normal Extension (L3) 5 Normal Comments Supine Ankle/Foot Strength Ankle and Foot Manual Muscle Testing Left Dorsiflexion (L4) 5 Normal Plantarflexion (S1) 5 Normal Right Dorsiflexion (L4) 4 Good Plantarflexion (S1) 4 Good Toe Strength Toe Manual Muscle Testing Left Great Toe Flexion 5 Normal Right Great Toe Extension 4 Good PT-OP-Q Treatments Start: 04/09/19 12:08 Freq: Status: Active Protocol: Document 06/05/19 14:35 MB (Rec: 06/05/19 15:14 MB [id number]) Therapeutic Exercises Supine Exercises Racquet ball release glute near sacrum at night Comments Performed today Negro stretch Comments B 30 sec stretch today Sitting Exercises Sitting ankle DF and eversion with level 1 band Comments 10 reps sitting, cues to keep knees straight Standing Exercises Crab walking with level 1 band Comments 10 steps right and left x2, added to HEP Manual Therapy Treatment Soft Tissue Mobilization MWM quads Comments R LE: Pt supine and PT places pressure on trigger points and pt performs active HS MWM gastrocsoleus Comments R LE: Pt supine and PT places pressure on trigger points and pt performs active ankle DF and PF Self-Care/Home Management Treatment Education Other Education Ed pt in benefits of Right AFO to help improve gait and decrease fall risk. Pt is agreeable and script faxed to Dr. Ha PT-OP-T Assessment and Plan Start: 04/09/19 12:08 Freq: Status: Active Protocol: Document 06/05/19 14:35 MB (Rec: 06/05/19 15:14 MB [id number]) Physical Therapy Assessment Rehab Potential Rehabilitation Potential Good Evaluation Complexity Number of Personal Factors/Comorbidities 1-2 Number of Body Systems Impaired 1-2 Impairments Impairments Activity Tolerance,Balance, Gait,Pain,Posture,ROM, Sensation,Soft Tissue Mobility ,Strength Goals 4 Senior Living Goal (LTG) Pt will perform progressive HEP with I including pelvic realignment, flexibility, core and LE strengthening and balance exercises by 07/19/2019 . 05/20/2019: Pt is performing progressive HEP. LTG Duration 8 weeks 3 Residency Director Goal (LTG) Pt will report a 75% improvement in back and RLE pain and paresthesias by 2019. 05/20/2019: Pt reports a 50% improvement in right LB and LE pain. LTG Duration 8 weeks 2 Residency Director Goal (LTG) Pt will present with R hip flexion and extension, ankle DF and great toe extension strength to 5/5 by 07/19/2019. 05/20/2019: Pt presents with LLE MMT hip flexion, knee flexion and extension, DF and great toe extension to 5/5. She presents with 4/5 left hip abduction strength. RLE is weaker with hip flexion 4/5, hip abduction 4/5, right knee extension 4/5 (fatigues), right knee flexion 4/5, right ankle DF 3+/5 and great toe extension 3+/5. LTG Duration 8 weeks 1 Senior Living Goal (LTG) Pt will present with an improved Oswestry LBP scale score to reflect no more than 20% impairment by 07/19/2019. 05/20/2019: Oswestry LBP scale score reflects 44% impairment. LTG Duration 8 weeks Assessment Summary Assessment Con't to progress exercises as tolerated. Counterstrain this date and pt with increased neural fascial tension LEs. Physical Therapy Plan Frequency and Duration Frequency of Treatment 2x/Week Duration of Treatment 8 weeks Plan of Care Start Date 05/20/19 Plan of Care End Date 07/19/19 Therapeutic Interventions Therapeutic Interventions Aquatic Therapy,Balance Training,Gait Training,Home Exercise Program,Manual Therapy,Neuromuscular Re- education,Patient/Caregiver Education,Self-Care/Home Management,Soft Tissue Mobilization,Taping, Therapeutic Exercises Modalities Cold Pack/Ice Massage,Electric Stimulation,Hot Packs, Ultrasound Other Referrals/Consults Referrals/Consults Recommended Spinal surgeon referral. Customer Service Advocate consult for possible AFO right foot to decrease fall risk and improve gait Next Visit Focus/Plan Next Note Type Treatment Note Next Visit Plan Consider wall squat. Con't Counterstrain to address fascial changes.
--- NOTE | 2019-06-13 09:02 | PT.OTN ---
Current Diagnoses Radiculopathy, lumbar region (06/13/19) Physical Therapy Treatment Note PT-OP-A Visit Information Start: 04/09/19 12:08 Freq: Status: Active Protocol: Document 06/13/19 08:21 MB (Rec: 06/13/19 09:02 MB [id number]) Out-Patient Physical Therapy Visit Information Visit Information Visit Type Treatment Note Visit Note [employer] and pt has 30 visits Visit Start Time 08:21 Visit Stop Time 09:00 Total Visit Minutes 39 Visit Number PT-OP-B Current Condition Start: 04/09/19 12:08 Freq: Status: Active Protocol: Document 04/09/19 12:11 MB (Rec: 04/09/19 12:44 MB [id number]) Current Condition History of Current Condition Onset Date 04/03/19 History of Current Condition On 04/02/19, pt went to acupuncture for her monthly visit. She is a runner. She was supposed to run a 5K on and she hurt so badly when she got up that she could not walk down the steps. She went to the ED. CT abdomen was negative. Driving is the worst. She prefers standing to sitting. She has numbness down her right leg. Steps are no longer problematic. She goes to acupuncture once a month and massage therapy once a month. She runs 10-15 miles a week. She works at home and sits on a yoga ball. Pt reports 7-8/10 pain in right SI and down lateral anterior and posterior right leg. She has numbness in her calf and foot. She sleeps on her left side with a pillow between her legs . PMH includes DMII, depression, gastric bypass and cyst removal right foot and came back, pt had one episode of back pain on the right 15 years ago PT-OP-C Subjective Start: 04/09/19 12:08 Freq: Status: Active Protocol: Document 06/13/19 08:21 MB (Rec: 06/13/19 09:02 MB [id number]) OP-PT Subjective Patient Comments Patient Comments Pt states that she got her AFO 2 days after therapy. It is working well but she got a bruise in the front of her. hoff. She fell twice since getting the AFO but it was d/t slipping on beach and mud. PT-OP-J Posture/Palpation/Skin Start: 04/09/19 12:08 Freq: Status: Active Protocol: Document 04/09/19 12:11 MB (Rec: 04/09/19 12:55 MB [id number]) Posture Evaluation Comments Posture Comments Standing: Dowager's hump, decreased thoracic kyphosis, increased lumbar lordosis and anterior pelvic tilt, right iliac crest higher than the left, increased soft tissue. PT-OP-M Strength Start: 04/09/19 12:08 Freq: Status: Active Protocol: Document 04/09/19 12:11 MB (Rec: 04/09/19 12:57 MB [id number]) Hip Strength Hip Manual Muscle Testing Left Flexion (L2) 4 Good Abduction 4 Good Right Flexion (L2) 3- Fair- Abduction 3- Fair- Comments Supine Knee Strength Knee Manual Muscle Testing Left Flexion (S2) 5 Normal Extension (L3) 5 Normal Comments Supine Right Flexion (S2) 5 Normal Extension (L3) 5 Normal Comments Supine Ankle/Foot Strength Ankle and Foot Manual Muscle Testing Left Dorsiflexion (L4) 5 Normal Plantarflexion (S1) 5 Normal Right Dorsiflexion (L4) 4 Good Plantarflexion (S1) 4 Good Toe Strength Toe Manual Muscle Testing Left Great Toe Flexion 5 Normal Right Great Toe Extension 4 Good PT-OP-Q Treatments Start: 04/09/19 12:08 Freq: Status: Active Protocol: Document 06/13/19 08:21 MB (Rec: 06/13/19 09:02 MB [id number]) Therapeutic Exercises Supine Exercises Negro stretch Comments R 30 sec today Gait Training Gait Activity AFO right shoe, fast gait and 4.0 mph run Comments Improved gait speed and able to jog up to 4.0 mph on flat treadmill today. B overpronation, greater on the left and increased Laverne angle. Pt with right hoff bruise and to return to lead systems developer today to reassess AFO Manual Therapy Treatment Soft Tissue Mobilization STM quad rolling Comments R quads, increased tension rectus femoris and vastus lateralis PT-OP-T Assessment and Plan Start: 04/09/19 12:08 Freq: Status: Active Protocol: Document 06/13/19 08:21 MB (Rec: 06/13/19 09:02 MB [id number]) Physical Therapy Assessment Rehab Potential Rehabilitation Potential Good Evaluation Complexity Number of Personal Factors/Comorbidities 1-2 Number of Body Systems Impaired 1-2 Impairments Impairments Activity Tolerance,Balance, Gait,Pain,Posture,ROM, Sensation,Soft Tissue Mobility ,Strength Goals 4 Senior Accounting Associate Goal (LTG) Pt will perform progressive HEP with I including pelvic realignment, flexibility, core and LE strengthening and balance exercises by 07/19/2019 . 05/20/2019: Pt is performing progressive HEP. LTG Duration 8 weeks 3 Usp Goal (LTG) Pt will report a 75% improvement in back and RLE pain and paresthesias by 2019. 05/20/2019: Pt reports a 50% improvement in right LB and LE pain. LTG Duration 8 weeks 2 Usp Goal (LTG) Pt will present with R hip flexion and extension, ankle DF and great toe extension strength to 5/5 by 07/19/2019. 05/20/2019: Pt presents with LLE MMT hip flexion, knee flexion and extension, DF and great toe extension to 5/5. She presents with 4/5 left hip abduction strength. RLE is weaker with hip flexion 4/5, hip abduction 4/5, right knee extension 4/5 (fatigues), right knee flexion 4/5, right ankle DF 3+/5 and great toe extension 3+/5. LTG Duration 8 weeks 1 Usp Goal (LTG) Pt will present with an improved Oswestry LBP scale score to reflect no more than 20% impairment by 07/19/2019. 05/20/2019: Oswestry LBP scale score reflects 44% impairment. LTG Duration 8 weeks Assessment Summary Assessment Improved gait with AFO and pt to follow-up with lead systems developer about light bruising area right hoff. Physical Therapy Plan Frequency and Duration Frequency of Treatment 2x/Week Duration of Treatment 8 weeks Plan of Care Start Date 05/20/19 Plan of Care End Date 07/19/19 Therapeutic Interventions Therapeutic Interventions Aquatic Therapy,Balance Training,Gait Training,Home Exercise Program,Manual Therapy,Neuromuscular Re- education,Patient/Caregiver Education,Self-Care/Home Management,Soft Tissue Mobilization,Taping, Therapeutic Exercises Modalities Cold Pack/Ice Massage,Electric Stimulation,Hot Packs, Ultrasound Other Referrals/Consults Referrals/Consults Recommended Spinal surgeon referral. Director Of Content And Programming consult for possible AFO right foot to decrease fall risk and improve gait Next Visit Focus/Plan Next Note Type Treatment Note Next Visit Plan Consider wall squat. Con't Counterstrain to address fascial changes.
--- NOTE | 2019-06-20 08:11 | PT.OTN ---
Current Diagnoses Radiculopathy, lumbar region (06/20/19) Physical Therapy Treatment Note PT-OP-A Visit Information Start: 04/09/19 12:08 Freq: Status: Active Protocol: Document 06/20/19 07:31 MB (Rec: 06/20/19 08:11 MB [id number]) Out-Patient Physical Therapy Visit Information Visit Information Visit Type Treatment Note Visit Note [employer]BS and pt has 30 visits Visit Start Time 07:31 Visit Stop Time 08:11 Total Visit Minutes 40 Visit Number PT-OP-B Current Condition Start: 04/09/19 12:08 Freq: Status: Active Protocol: Document 04/09/19 12:11 MB (Rec: 04/09/19 12:44 MB [id number]) Current Condition History of Current Condition Onset Date 04/03/19 History of Current Condition On 04/02/19, pt went to acupuncture for her monthly visit. She is a runner. She was supposed to run a 5K on and she hurt so badly when she got up that she could not walk down the steps. She went to the ED. CT abdomen was negative. Driving is the worst. She prefers standing to sitting. She has numbness down her right leg. Steps are no longer problematic. She goes to acupuncture once a month and massage therapy once a month. She runs 10-15 miles a week. She works at home and sits on a yoga ball. Pt reports 7-8/10 pain in right SI and down lateral anterior and posterior right leg. She has numbness in her calf and foot. She sleeps on her left side with a pillow between her legs . PMH includes DMII, depression, gastric bypass and cyst removal right foot and came back, pt had one episode of back pain on the right 15 years ago PT-OP-C Subjective Start: 04/09/19 12:08 Freq: Status: Active Protocol: Document 06/20/19 07:31 MB (Rec: 06/20/19 08:11 MB [id number]) OP-PT Subjective Patient Comments Patient Comments Pt decided not to follow-up with county historian about her AFO d /t bruise is healing. She might consider going by to ask the county historian about the brace . Pt is going to see the surgeon about her spine the beginning of next month. Pt has had no falls in the last week and has been testing her leg with walking dogs fast. PT-OP-J Posture/Palpation/Skin Start: 04/09/19 12:08 Freq: Status: Active Protocol: Document 04/09/19 12:11 MB (Rec: 04/09/19 12:55 MB [id number]) Posture Evaluation Comments Posture Comments Standing: Dowager's hump, decreased thoracic kyphosis, increased lumbar lordosis and anterior pelvic tilt, right iliac crest higher than the left, increased soft tissue. PT-OP-M Strength Start: 04/09/19 12:08 Freq: Status: Active Protocol: Document 04/09/19 12:11 MB (Rec: 04/09/19 12:57 MB [id number]) Hip Strength Hip Manual Muscle Testing Left Flexion (L2) 4 Good Abduction 4 Good Right Flexion (L2) 3- Fair- Abduction 3- Fair- Comments Supine Knee Strength Knee Manual Muscle Testing Left Flexion (S2) 5 Normal Extension (L3) 5 Normal Comments Supine Right Flexion (S2) 5 Normal Extension (L3) 5 Normal Comments Supine Ankle/Foot Strength Ankle and Foot Manual Muscle Testing Left Dorsiflexion (L4) 5 Normal Plantarflexion (S1) 5 Normal Right Dorsiflexion (L4) 4 Good Plantarflexion (S1) 4 Good Toe Strength Toe Manual Muscle Testing Left Great Toe Flexion 5 Normal Right Great Toe Extension 4 Good PT-OP-Q Treatments Start: 04/09/19 12:08 Freq: Status: Active Protocol: Document 06/20/19 07:31 MB (Rec: 06/20/19 08:11 MB [id number]) Therapeutic Exercises Other Exercises Verbally reviewed all HEP, pt performs B Negro stretch and rolling pin STM Comments Reviewed these dates and pt performed some Manual Therapy Treatment Soft Tissue Mobilization STM quad rolling Comments R quads, increased tension rectus femoris and vastus lateralis PT-OP-T Assessment and Plan Start: 04/09/19 12:08 Freq: Status: Active Protocol: Document 06/20/19 07:31 MB (Rec: 06/20/19 08:11 MB [id number]) Physical Therapy Assessment Goals 4 Railway Engineer Goal (LTG) Pt will perform progressive HEP with I including pelvic realignment, flexibility, core and LE strengthening and balance exercises by 07/19/2019 . 06/20/2019: Pt has been performing progressive HEP LTG Duration 8 weeks 3 Railway Engineer Goal (LTG) Pt will report a 75% improvement in back and RLE pain and paresthesias by 2019. 06/20/2019: Pt reports a 70% improvement in back and right leg pain and right leg paresthesias since starting PT . LTG Duration 8 weeks 2 Railway Engineer Goal (LTG) Pt will present with R hip flexion and extension, ankle DF and great toe extension strength to 5/5 by 07/19/2019. 06/20/2019: Pt presents with LLE MMT hip flexion and abduction, knee flexion and extension, DF and great toe extension to 5/5. R hip flexion 4/5, hip abduction 4/5 , right knee extension 5/5, right knee flexion 4/5, right ankle DF 4/5 and great toe extension 4/5. MMT in supine right PF 5/5 LTG Duration 8 weeks 1 Railway Engineer Goal (LTG) Pt will present with an improved Oswestry LBP scale score to reflect no more than 20% impairment by 07/19/2019. 06/20/2019: Oswestry LBP scale score reflects 12% impairment LTG Duration 8 weeks Assessment Summary Assessment Pt has met the following PT goals since starting PT: Oswestry LBP scale score, performance of HEP. She presents with decreased back and right leg pain and right leg paresthesias. Her right LE strength is improved. Her gait is much better with right AFO and she will see surgeon about L4 disk problem. She has maximized PT goals. Will d/c PT. Physical Therapy Plan Frequency and Duration Frequency of Treatment 2x/Week Duration of Treatment 8 weeks Plan of Care Start Date 05/20/19 Plan of Care End Date 07/19/19 Therapeutic Interventions Therapeutic Interventions Aquatic Therapy,Balance Training,Gait Training,Home Exercise Program,Manual Therapy,Neuromuscular Re- education,Patient/Caregiver Education,Self-Care/Home Management,Soft Tissue Mobilization,Taping, Therapeutic Exercises Modalities Cold Pack/Ice Massage,Electric Stimulation,Hot Packs, Ultrasound Other Referrals/Consults Referrals/Consults Recommended Spinal surgeon referral. Criminal Defense Lawyer consult for possible AFO right foot to decrease fall risk and improve gait Next Visit Focus/Plan Next Note Type Treatment Note Next Visit Plan Consider wall squat. Con't Counterstrain to address fascial changes.
== END 2019-06-24 13:42 ==
LOC: PHYS 07:30
PROVIDERS: PCP Family Medicine; Visit Provider Family Medicine
DX: M54.16 Radiculopathy, lumbar region (principal)
CPT/HCPCS: 97110; 97116; 97140; 97161; 97535

== ENCOUNTER → 2020-02-05 12:40 | Outpatient (CLI) | payer BC, SELFPAY ==
--- NOTE | 2020-02-05 | DI.MG.S_ITS ---
UNILATERAL RIGHT DIGITAL DIAGNOSTIC MAMMOGRAM 3D/2D: 02/05/2020 CLINICAL: Right breast lump. Comparison is made to exams dated: 06/06/2019 mammogram, 05/18/2018 mammogram, and 05/19/2016 mammogram - [facility]. There are scattered fibroglandular elements in right breast. No significant masses, calcifications, or other findings are seen in the breast. IMPRESSION: INCOMPLETE: NEEDS ADDITIONAL IMAGING EVALUATION No mammographic abnormality demonstrated. Ultrasound of the palpable abnormality is recommended and scheduled to immediately follow. This exam was interpreted at Station ID: [id number]. NOTE: For mammograms, a report in lay terms will be sent to the patient. Approximately 15% of breast malignancies will not be visualized mammographically. In the management of a palpable breast mass, a negative mammogram must not discourage biopsy of a clinically suspicious lesion. Electronically Signed By: Raphael Solis M.D. jr/:02/05/2020 14:39:49 ACR BI-RADS Category 0: Incomplete 3340F
--- NOTE | 2020-02-05 | DI.US.S_ITS ---
ULTRASOUND OF RIGHT BREAST: 02/05/2020 CLINICAL: Palpable right breast lump. Comparison is made to exams dated: 02/05/2020 mammogram, 06/06/2019 mammogram, 05/18/2018 mammogram, 05/19/2016 mammogram, and 08/12/2004 mammogram - [facility]. Color flow and real-time ultrasound of the right breast were performed. [place] scale images of the real-time examination were reviewed. The patient's palpable area of concern corresponds to a well-circumscribed approximately 2.5 cm fat echogenicity mass which is in the superficial subcutaneous fat. This likely represents either fat necrosis of a lipoma, both benign. No shadowing mass or other suspicious sonographic abnormality. IMPRESSION: BENIGN There is no sonographic evidence of malignancy. The patient's palpable area of concern corresponds to a well-circumscribed approximately 2.5 cm fat echogenicity mass which is in the superficial subcutaneous fat. This likely represents either fat necrosis of a lipoma, both benign. This exam was interpreted at Station ID: [id number]. Electronically Signed By: Raphael Solis M.D. jr/:02/05/2020 14:42:06 letter sent: Normal Exam Ultrasound BI-RADS: 2 Benign
== END ==
PROVIDERS: PCP Family Medicine; Referring Provider Family Medicine; Visit Provider Family Medicine
DX: R92.8 Other abnormal and inconclusive findings on diagnostic imaging of breast (principal); N63.10 Unspecified lump in the right breast, unspecified quadrant
CPT/HCPCS: 76642; 77065; G0279

== ENCOUNTER → 2020-06-08 17:08 | Outpatient (CLI) | payer BC, SELFPAY ==
--- NOTE | 2020-06-08 | DI.MG.S_ITS ---
BILATERAL DIGITAL SCREENING MAMMOGRAM 3D/2D WITH CAD: 06/08/2020 CLINICAL: Routine screening. Family history of breast cancer. Comparison is made to exams dated: 02/05/2020 mammogram, 06/06/2019 mammogram, 05/18/2018 mammogram, and 05/19/2016 mammogram - [facility]. There are scattered fibroglandular elements in both breasts. Current study was also evaluated with a Computer Aided Detection (CAD) system. No significant masses, calcifications, or other findings are seen in either breast. There has been no significant interval change. IMPRESSION: NEGATIVE There is no mammographic evidence of malignancy. A 1 year screening mammogram is recommended. This exam was interpreted at Station ID: [id number]. NOTE: For mammograms, a report in lay terms will be sent to the patient. Approximately 15% of breast malignancies will not be visualized mammographically. In the management of a palpable breast mass, a negative mammogram must not discourage biopsy of a clinically suspicious lesion. Electronically Signed By: Jaden smith/adan:06/09/2020 09:14:11 letter sent: Normal Exam ACR BI-RADS Category 1: Negative [id number]
== END ==
PROVIDERS: PCP Family Medicine; Referring Provider Family Medicine; Visit Provider Family Medicine
DX: Z12.31 Encounter for screening mammogram for malignant neoplasm of breast (principal); Z80.3 Family history of malignant neoplasm of breast
CPT/HCPCS: 77063; 77067

== ENCOUNTER 2021-02-17 14:30 | Outpatient (RCR) | payer BC, SELFPAY ==
--- NOTE | 2021-01-01 16:17 | PT.OIE ---
Current Diagnoses Other spondylosis with myelopathy, cervical region (01/01/21) Other intervertebral disc displacement, thoracic region (01/01/21) Past Medical History (Last Updated 09/23/20 @ 15:23 by Genevieve Lovell DO) Alcohol use disorder, moderate, in sustained remission Breathing-related sleep disorder Insomnia (~2017) Obstructive sleep apnea of adult (~2017) Snoring (~2017) Past Surgical History (Last Reviewed 04/23/19 @ 11:42 by Deja Deluna PA-C) History of bladder suspension procedure History of gastric bypass (05/10/04) History of third molar tooth extraction Status post tonsillectomy and adenoidectomy Status post tubal ligation Visit Care Team Role Provider Type Kj Hall MD Family Provider Physician Primary Care Provider Specialty: Family Practice Address: [address] [place] [address], [facility] Email: [email or web address] Richie Dutton DO Attending Provider Non-Staff Referring Provider Specialty: Neurology Address: [address] [place] [address], [id number] Email: Physical Therapy Initial Evaluation PT-OP-A Visit Information Start: 01/01/21 14:48 Freq: Status: Active Protocol: Document 01/01/21 13:00 (Rec: 01/01/21 14:56 [email or web address]) Out-Patient Physical Therapy Visit Information Visit Information Visit Type Initial Evaluation Visit Note pt next visit with Dr. Dutton = Visit Start Time 13:00 Visit Stop Time 13:45 Total Visit Minutes 45 Visit Number 1 Number of CARDIAC CARE UNIT NURSE Visits 0 Evaluation Information Evaluation Date 01/01/21 PT-OP-B Current Condition Start: 01/01/21 14:48 Freq: Status: Active Protocol: Document 01/01/21 13:00 HH (Rec: 01/01/21 14:56 [email or web address]) Current Condition History of Current Condition Onset Date Summer 2019 Current Complaints chronic neck pain and stiffness History of Current Condition Dacia is a 45yo female here for her neck pain started last summer. She has been working from home since 2 years ago and she noticed that her neck tends to get stiff very easily at work. She needs to move her around and change of position for relief. She has had carpal tunnel release surgery last April d/t ongoing hand falling asleep but it actually did not relieve her symptoms after. She then went to see neurosurgeon Dr. Dutton and pt was dx with spinal stenosis, bone spur at C3-C5 and cervical radiculopathy. Dr Dutton recommended her to have ACDF C4-6 if this course of PT failed. Prior Treatments and Tests Pt has L4 herniated disc and lumbar radiulopathy who has had PT here at [facility] with good result. However, pt still has difficulty running d/t increase pain. Future Testing and Treatments Planned Dr Dutton recommended her to have ACDF C4-6 if this course of PT failed. Personal Factors Other Personal Factors That May Effect ADHD Therapy/Recovery depression HTN bruise easily PT-OP-C Subjective Start: 01/01/21 14:48 Freq: Status: Active Protocol: Document 01/01/21 13:00 HH (Rec: 01/01/21 16:16 [email or web address]) Patient Questionnaires Neck Disability Index NDI Score 22 Neck Disability Index Impairment 40 to 59% Impaired (Score 20- 29) Oswestry Low Back Index Oswestry Score 34 Oswestry Impairment 20 to 39% Impaired (Score 20- 39) Quick Dash- Upper Extremity Quick Dash UE Score 29.54 Quick Dash UE Impairment 20 to 39% Impaired (Score 20- 39) OP-PT Pain Assessment Location neck pain Pain Location Details lower cervical Intensity 5 Scale Used Numeric (0 - 10) Description Aching,Dull,Pressure Frequency Frequent Pain Aggravating Factors Position,ADL's,Activity, Standing Pain Alleviating Factors Inactivity,Lying Supine PT-OP-F Manual Assessment Start: 01/01/21 14:48 Freq: Status: Active Protocol: Document 01/01/21 13:00 HH (Rec: 01/01/21 16:16 [email or web address]) Manual Assessments Soft Tissue Assessment Soft Tissue Mobility Assessment significant hypertoncity at subocciptals, lower cervical paraspinals, upper trap Joint Mobility Assessment Joint Mobility Assessment hypomobile T1-T4 PT-OP-H Neuro Start: 01/01/21 14:48 Freq: Status: Active Protocol: Document 01/01/21 13:00 HH (Rec: 01/01/21 16:16 [email or web address]) Deep Tendon Reflex & Clonus Assessment Deep Tendon Reflex Bilateral Bicep Deep Tendon Reflex 2+ Normal Bilateral Tricep Deep Tendon Reflex 2+ Normal Bilateral Brachioradialis Deep Tendon Reflex 2+ Normal PT-OP-J Posture/Palpation/Skin Start: 01/01/21 14:48 Freq: Status: Active Protocol: Document 01/01/21 13:00 HH (Rec: 01/01/21 16:16 [email or web address]) Posture Evaluation Position Standing Evaluation View Lateral Head/C-Spine Posture Forward Head T-Spine Posture Increased Kyphosis L-Spine Posture Increased Lordosis Shoulder Posture (L) Rounded,(R) Rounded Pelvis Posture Anteriorly Tilted PT-OP-K Range of Motion Start: 01/01/21 14:48 Freq: Status: Active Protocol: Document 01/01/21 13:00 HH (Rec: 01/01/21 16:16 [email or web address]) Cervical Spine Range of Motion Cervical Spine Active Degrees Testing Position Standing Flexion 35 Extension 55 Rotation Left 65 Rotation Right 62 Lateral Flexion Left 35 Lateral Flexion Right 35 ROM Limitations Soft Tissue Tightness,Muscle Weakness,Pain Comments flexion with tightness at T spine angulation C5-6 during extension, lateral flexion and rotation. hypomobile T1-T4 during cervical movement PT-OP-L Special Tests Start: 01/01/21 14:48 Freq: Status: Active Protocol: Document 01/01/21 13:00 HH (Rec: 01/01/21 16:16 [email or web address]) Special Tests Cervical Spine Special Tests Traction Test Results +VE Comments good relief Upper Limb Tension Test Test Results will assess next visit Spurling's Test Test Results +ve B Comments radiating pain to upper trap Foraminal Compression Test Results +VE B PT-OP-M Strength Start: 01/01/21 14:48 Freq: Status: Active Protocol: Document 01/01/21 13:00 HH (Rec: 01/01/21 16:16 [email or web address]) Cervical Spine Strength Cervical Spine Manual Muscle Testing Testing Position Supine Comments chin tuck deep cervical flexion = 15s lateral flexion L= 8 s lateral flexion R= 10s extension = 20 s PT-OP-Q Treatments Start: 01/01/21 14:48 Freq: Status: Active Protocol: Document 01/01/21 13:00 HH (Rec: 01/01/21 16:16 [email or web address]) Therapeutic Exercises Sitting Exercises chin tuck Reps/Minutes 3 sec holdx 10 Comments for HEP PT-OP-T Assessment and Plan Start: 01/01/21 14:48 Freq: Status: Active Protocol: Document 01/01/21 13:00 (Rec: 01/01/21 16:16 [email or web address]) Physical Therapy Assessment Rehab Potential Rehabilitation Potential Good Evaluation Complexity Number of Personal Factors/Comorbidities 1-2 Number of Body Systems Impaired 1-2 Clinical Presentation at Evaluation Stable Impairments Impairments Activity Tolerance,Functional Activities,Functional Mobility ,Pain,Posture,ROM,Soft Tissue Mobility,Strength,Transfers Other Concerns Barriers to Rehabilitation HTN depression Goals pain 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 LTG Duration 8 weeks HEP Impairment pt does not have HEP Short Term Goal (STG) pt will be compliant to daily HEP to improve her cervical stability and thoracic mobility STG Duration 4 weeks NDI Impairment pt scores 22/50 on NDI Short Term Goal (STG) pt will show improve activity tolerance and quality of life by scoring <15 on NDI STG Duration 4 weeks Nursing Home Goal (LTG) pt will show improve activity tolerance and quality of life by scoring <10 on NDI LTG Duration 8 weeks Assessment Summary Assessment Dacia is a 45yo female here for her chronic neck pain since last summer. Upon assessment, pt shows signs of spinal stenosis / cervical radiculopathy (to B shoulders) which her symptoms get worse with closed pack position such as extension and rotation. She does have very limited upper thoracic mobility but excessive mobility at lower cervical region who presents a FHP and Dowager Hump at CT junction. Her deep cervical stabilizers are very weak which affects her work tolerance. Pt will benefit from skilled therapy to improve her lower cervical stability and upper thoracic mobility, along with postural awareness. Physical Therapy Plan Frequency and Duration Frequency of Treatment 1-2x/wk Duration of Treatment 8 weeks Plan of Care Start Date 01/01/21 Plan of Care End Date 03/02/21 Therapeutic Interventions Therapeutic Interventions Home Exercise Program,Joint Mobilizations,Manual Therapy, Neuromuscular Re-education, Patient/Caregiver Education, Self-Care/Home Management,Soft Tissue Mobilization,Taping, Therapeutic Activities, Therapeutic Exercises Modalities Cold Pack/Ice Massage,Electric Stimulation,Hot Packs, Infrared Therapy,Traction- Mechanical,Ultrasound Next Visit Focus/Plan Next Note Type Treatment Note Next Visit Plan check UTTT review chin tuck thoracic extension, open book deep cervical ex.
--- NOTE | 2021-01-01 16:22 | PT.OPPOC ---
Physical, Occupational & Speech Therapy At [facility] Current Diagnoses Other spondylosis with myelopathy, cervical region (01/01/21) Other intervertebral disc displacement, thoracic region (01/01/21) Visit Care Team Role Provider Type Kj Hall MD Family Provider Physician Primary Care Provider Specialty: Family Practice Address: [address] [place] [address], [facility] [place], [address] Email: [email or web address] Richie Dutton DO Attending Provider Non-Staff Referring Provider Specialty: Neurology Address: [address] [place] [address], [id number] Email: Plan Of Care PT-OP-T Assessment and Plan Start: 01/01/21 14:48 Freq: Status: Active Protocol: Document 01/01/21 13:00 (Rec: 01/01/21 16:16 [email or web address]) Physical Therapy Assessment Rehab Potential Rehabilitation Potential Good Evaluation Complexity Number of Personal Factors/Comorbidities 1-2 Number of Body Systems Impaired 1-2 Clinical Presentation at Evaluation Stable Impairments Impairments Activity Tolerance,Functional Activities,Functional Mobility ,Pain,Posture,ROM,Soft Tissue Mobility,Strength,Transfers Other Concerns Barriers to Rehabilitation HTN depression Goals pain 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 LTG Duration 8 weeks HEP Impairment pt does not have HEP Short Term Goal (STG) pt will be compliant to daily HEP to improve her cervical stability and thoracic mobility STG Duration 4 weeks NDI Impairment pt scores 22/50 on NDI Short Term Goal (STG) pt will show improve activity tolerance and quality of life by scoring <15 on NDI STG Duration 4 weeks Semiconductor Dies Loader Goal (LTG) pt will show improve activity tolerance and quality of life by scoring <10 on NDI LTG Duration 8 weeks Assessment Summary Assessment Dacia is a 45yo female here for her chronic neck pain since last summer. Upon assessment, pt shows signs of spinal stenosis / cervical radiculopathy (to B shoulders) which her symptoms get worse with closed pack position such as extension and rotation. She does have very limited upper thoracic mobility but excessive mobility at lower cervical region who presents a FHP and Dowager Hump at CT junction. Her deep cervical stabilizers are very weak which affects her work tolerance. Pt will benefit from skilled therapy to improve her lower cervical stability and upper thoracic mobility, along with postural awareness. Physical Therapy Plan Frequency and Duration Frequency of Treatment 1-2x/wk Duration of Treatment 8 weeks Plan of Care Start Date 01/01/21 Plan of Care End Date 03/02/21 Therapeutic Interventions Therapeutic Interventions Home Exercise Program,Joint Mobilizations,Manual Therapy, Neuromuscular Re-education, Patient/Caregiver Education, Self-Care/Home Management,Soft Tissue Mobilization,Taping, Therapeutic Activities, Therapeutic Exercises Modalities Cold Pack/Ice Massage,Electric Stimulation,Hot Packs, Infrared Therapy,Traction- Mechanical,Ultrasound Next Visit Focus/Plan Next Note Type Treatment Note Next Visit Plan check UTTT review chin tuck thoracic extension, open book deep cervical ex. Plan of Care Dates Plan of Care Start Date 01/01/21 Plan of Care End Date 03/02/21 Electronically Signed by: Franklin Castillo, PT 01/01/21 [id number] Please Sign and Return: I have reviewed this Plan of Care and certify that the skilled therapy services above are required to meet the patient?s needs. Physician Signature Date Printed Name and Credentials Clinical Instructor Signature Printed Name and Credentials
--- NOTE | 2021-01-06 12:46 | PT.OTN ---
Current Diagnoses Other spondylosis with myelopathy, cervical region (01/06/21) Other intervertebral disc displacement, thoracic region (01/06/21) Physical Therapy Treatment Note PT-OP-A Visit Information Start: 01/01/21 14:48 Freq: Status: Active Protocol: Document 01/06/21 12:01 (Rec: 01/06/21 12:45 [id number]) Out-Patient Physical Therapy Visit Information Visit Information Visit Type Treatment Note Visit Note pt next visit with Dr. Dutton = Visit Start Time 12:00 Visit Stop Time 12:44 Total Visit Minutes 44 Visit Number 2 Number of SENIOR SOFTWARE ENGINEERING MANAGER Visits 0 PT-OP-B Current Condition Start: 01/01/21 14:48 Freq: Status: Active Protocol: Document 01/01/21 13:00 HH (Rec: 01/01/21 14:56 [email or web address]) Current Condition History of Current Condition Onset Date Summer 2019 Current Complaints chronic neck pain and stiffness History of Current Condition Dacia is a 45yo female here for her neck pain started last summer. She has been working from home since 2 years ago and she noticed that her neck tends to get stiff very easily at work. She needs to move her around and change of position for relief. She has had carpal tunnel release surgery last April d/t ongoing hand falling asleep but it actually did not relieve her symptoms after. She then went to see neurosurgeon Dr. Dutton and pt was dx with spinal stenosis, bone spur at C3-C5 and cervical radiculopathy. Dr Dutton recommended her to have ACDF C4-6 if this course of PT failed. Prior Treatments and Tests Pt has L4 herniated disc and lumbar radiulopathy who has had PT here at [facility] with good result. However, pt still has difficulty running d/t increase pain. Future Testing and Treatments Planned Dr Dutton recommended her to have ACDF C4-6 if this course of PT failed. Personal Factors Other Personal Factors That May Effect ADHD Therapy/Recovery depression HTN bruise easily PT-OP-C Subjective Start: 01/01/21 14:48 Freq: Status: Active Protocol: Document 01/06/21 12:01 HH (Rec: 01/06/21 12:45 [id number]) OP-PT Subjective Patient Comments Patient Comments Melba been doing my chin tuck. PT-OP-F Manual Assessment Start: 01/01/21 14:48 Freq: Status: Active Protocol: Document 01/01/21 13:00 HH (Rec: 01/01/21 16:16 [email or web address]) Manual Assessments Soft Tissue Assessment Soft Tissue Mobility Assessment significant hypertoncity at subocciptals, lower cervical paraspinals, upper trap Joint Mobility Assessment Joint Mobility Assessment hypomobile T1-T4 PT-OP-H Neuro Start: 01/01/21 14:48 Freq: Status: Active Protocol: Document 01/01/21 13:00 HH (Rec: 01/01/21 16:16 [email or web address]) Deep Tendon Reflex & Clonus Assessment Deep Tendon Reflex Bilateral Bicep Deep Tendon Reflex 2+ Normal Bilateral Tricep Deep Tendon Reflex 2+ Normal Bilateral Brachioradialis Deep Tendon Reflex 2+ Normal PT-OP-J Posture/Palpation/Skin Start: 01/01/21 14:48 Freq: Status: Active Protocol: Document 01/01/21 13:00 HH (Rec: 01/01/21 16:16 [email or web address]) Posture Evaluation Position Standing Evaluation View Lateral Head/C-Spine Posture Forward Head T-Spine Posture Increased Kyphosis L-Spine Posture Increased Lordosis Shoulder Posture (L) Rounded,(R) Rounded Pelvis Posture Anteriorly Tilted PT-OP-K Range of Motion Start: 01/01/21 14:48 Freq: Status: Active Protocol: Document 01/01/21 13:00 HH (Rec: 01/01/21 16:16 [email or web address]) Cervical Spine Range of Motion Cervical Spine Active Degrees Testing Position Standing Flexion 35 Extension 55 Rotation Left 65 Rotation Right 62 Lateral Flexion Left 35 Lateral Flexion Right 35 ROM Limitations Soft Tissue Tightness,Muscle Weakness,Pain Comments flexion with tightness at T spine angulation C5-6 during extension, lateral flexion and rotation. hypomobile T1-T4 during cervical movement PT-OP-L Special Tests Start: 01/01/21 14:48 Freq: Status: Active Protocol: Document 01/01/21 13:00 HH (Rec: 01/01/21 16:16 [email or web address]) Special Tests Cervical Spine Special Tests Traction Test Results +VE Comments good relief Upper Limb Tension Test Test Results will assess next visit Spurling's Test Test Results +ve B Comments radiating pain to upper trap Foraminal Compression Test Results +VE B PT-OP-M Strength Start: 01/01/21 14:48 Freq: Status: Active Protocol: Document 01/01/21 13:00 (Rec: 01/01/21 16:16 [email or web address]) Cervical Spine Strength Cervical Spine Manual Muscle Testing Testing Position Supine Comments chin tuck deep cervical flexion = 15s lateral flexion L= 8 s lateral flexion R= 10s extension = 20 s PT-OP-Q Treatments Start: 01/01/21 14:48 Freq: Status: Active Protocol: Document 01/06/21 12:01 (Rec: 01/06/21 12:45 [id number]) Therapeutic Exercises Sitting Exercises chin tuck Sitting Exercise Name review Reps/Minutes 3 sec holdx 10 Comments for HEP Standing Exercises median nerve glide Standing Exercise Name full extent Side right Reps/Minutes 10 x2 towel stretch Standing Exercise Name cervical extension and rotation Equipment Used towel behind neck Reps/Minutes 10 x2 pec stretch Standing Exercise Name arm behind back, with cervical extension Reps/Minutes 10 x1 Comments for HEP Manual Therapy Treatment Soft Tissue Mobilization suboccipitals Mobilization Type Myofascial Release,Sustained Pressure,Trigger Point Release Intensity/Depth Deep Body Position Supine Comments good relief reported Manual Traction cervical traction Body Position Supine Reps/Duration 10 s x 8 PT-OP-T Assessment and Plan Start: 01/01/21 14:48 Freq: Status: Active Protocol: Document 01/06/21 12:01 (Rec: 01/06/21 12:45 [id number]) Physical Therapy Assessment Goals pain 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 LTG Duration 8 weeks HEP Impairment pt does not have HEP Short Term Goal (STG) pt will be compliant to daily HEP to improve her cervical stability and thoracic mobility STG Duration 4 weeks NDI Impairment pt scores 22/50 on NDI Short Term Goal (STG) pt will show improve activity tolerance and quality of life by scoring <15 on NDI STG Duration 4 weeks Retirement Goal (LTG) pt will show improve activity tolerance and quality of life by scoring <10 on NDI LTG Duration 8 weeks Assessment Summary Assessment first tx session today. Spent time on postural correction and explained POC regarding increasing thoracic mobility and stability of cervical spine. Added chin tuck, pec stretch, towel stretch for rotation and extension and median nerve glide. will reassess her tolerance. Physical Therapy Plan Frequency and Duration Frequency of Treatment 1-2x/wk Duration of Treatment 8 weeks Plan of Care Start Date 01/01/21 Plan of Care End Date 03/02/21 Therapeutic Interventions Therapeutic Interventions Home Exercise Program,Joint Mobilizations,Manual Therapy, Neuromuscular Re-education, Patient/Caregiver Education, Self-Care/Home Management,Soft Tissue Mobilization,Taping, Therapeutic Activities, Therapeutic Exercises Modalities Cold Pack/Ice Massage,Electric Stimulation,Hot Packs, Infrared Therapy,Traction- Mechanical,Ultrasound Next Visit Focus/Plan Next Note Type Treatment Note Next Visit Plan check UTTT review chin tuck thoracic extension, open book deep cervical ex.
--- NOTE | 2021-01-08 09:49 | PT.OTN ---
Current Diagnoses Other spondylosis with myelopathy, cervical region (01/08/21) Other intervertebral disc displacement, thoracic region (01/08/21) Physical Therapy Treatment Note PT-OP-A Visit Information Start: 01/01/21 14:48 Freq: Status: Active Protocol: Document 01/08/21 09:02 HH (Rec: 01/08/21 09:49 [id number]) Out-Patient Physical Therapy Visit Information Visit Information Visit Type Treatment Note Visit Note pt next visit with Dr. Dutton = Visit Start Time 09:02 Visit Stop Time 09:45 Total Visit Minutes 43 Visit Number 3 Number of ELECTRIC BLANKET PACKER Visits 0 PT-OP-B Current Condition Start: 01/01/21 14:48 Freq: Status: Active Protocol: Document 01/01/21 13:00 HH (Rec: 01/01/21 14:56 HH [email or web address]) Current Condition History of Current Condition Onset Date Summer 2019 Current Complaints chronic neck pain and stiffness History of Current Condition Dacia is a 45yo female here for her neck pain started last summer. She has been working from home since 2 years ago and she noticed that her neck tends to get stiff very easily at work. She needs to move her around and change of position for relief. She has had carpal tunnel release surgery last April d/t ongoing hand falling asleep but it actually did not relieve her symptoms after. She then went to see neurosurgeon Dr. Dutton and pt was dx with spinal stenosis, bone spur at C3-C5 and cervical radiculopathy. Dr Dutton recommended her to have ACDF C4-6 if this course of PT failed. Prior Treatments and Tests Pt has L4 herniated disc and lumbar radiulopathy who has had PT here at [facility] with good result. However, pt still has difficulty running d/t increase pain. Future Testing and Treatments Planned Dr Dutton recommended her to have ACDF C4-6 if this course of PT failed. Personal Factors Other Personal Factors That May Effect ADHD Therapy/Recovery depression HTN bruise easily PT-OP-C Subjective Start: 01/01/21 14:48 Freq: Status: Active Protocol: Document 01/08/21 09:02 HH (Rec: 01/08/21 09:49 [id number]) OP-PT Subjective Patient Comments Patient Comments I did get a little sore at my neck from last time but it went away. Melba been doing all my stretches PT-OP-F Manual Assessment Start: 01/01/21 14:48 Freq: Status: Active Protocol: Document 01/01/21 13:00 HH (Rec: 01/01/21 16:16 [email or web address]) Manual Assessments Soft Tissue Assessment Soft Tissue Mobility Assessment significant hypertoncity at subocciptals, lower cervical paraspinals, upper trap Joint Mobility Assessment Joint Mobility Assessment hypomobile T1-T4 PT-OP-H Neuro Start: 01/01/21 14:48 Freq: Status: Active Protocol: Document 01/01/21 13:00 HH (Rec: 01/01/21 16:16 [email or web address]) Deep Tendon Reflex & Clonus Assessment Deep Tendon Reflex Bilateral Bicep Deep Tendon Reflex 2+ Normal Bilateral Tricep Deep Tendon Reflex 2+ Normal Bilateral Brachioradialis Deep Tendon Reflex 2+ Normal PT-OP-J Posture/Palpation/Skin Start: 01/01/21 14:48 Freq: Status: Active Protocol: Document 01/01/21 13:00 HH (Rec: 01/01/21 16:16 [email or web address]) Posture Evaluation Position Standing Evaluation View Lateral Head/C-Spine Posture Forward Head T-Spine Posture Increased Kyphosis L-Spine Posture Increased Lordosis Shoulder Posture (L) Rounded,(R) Rounded Pelvis Posture Anteriorly Tilted PT-OP-K Range of Motion Start: 01/01/21 14:48 Freq: Status: Active Protocol: Document 01/01/21 13:00 HH (Rec: 01/01/21 16:16 [email or web address]) Cervical Spine Range of Motion Cervical Spine Active Degrees Testing Position Standing Flexion 35 Extension 55 Rotation Left 65 Rotation Right 62 Lateral Flexion Left 35 Lateral Flexion Right 35 ROM Limitations Soft Tissue Tightness,Muscle Weakness,Pain Comments flexion with tightness at T spine angulation C5-6 during extension, lateral flexion and rotation. hypomobile T1-T4 during cervical movement PT-OP-L Special Tests Start: 01/01/21 14:48 Freq: Status: Active Protocol: Document 01/01/21 13:00 HH (Rec: 01/01/21 16:16 [email or web address]) Special Tests Cervical Spine Special Tests Traction Test Results +VE Comments good relief Upper Limb Tension Test Test Results will assess next visit Spurling's Test Test Results +ve B Comments radiating pain to upper trap Foraminal Compression Test Results +VE B PT-OP-M Strength Start: 01/01/21 14:48 Freq: Status: Active Protocol: Document 01/01/21 13:00 (Rec: 01/01/21 16:16 [email or web address]) Cervical Spine Strength Cervical Spine Manual Muscle Testing Testing Position Supine Comments chin tuck deep cervical flexion = 15s lateral flexion L= 8 s lateral flexion R= 10s extension = 20 s PT-OP-Q Treatments Start: 01/01/21 14:48 Freq: Status: Active Protocol: Document 01/08/21 09:02 (Rec: 01/08/21 09:49 [id number]) Cardio Equipment Upper Body Ergometer (UBE) Duration (Minutes) 5 Seat Position 13 Height 4 Therapeutic Exercises Standing Exercises wall slide Standing Exercise Name prayer stretch with arm extended. Resistance towel Reps/Minutes 10 x 2 shoulder Y Equipment Used level 1 band Reps/Minutes 10 x2 median nerve glide Standing Exercise Name full extent Side right Reps/Minutes 10 x2 Comments review towel stretch Standing Exercise Name cervical extension and rotation Equipment Used towel behind neck Reps/Minutes 10 x2 pec stretch Standing Exercise Name arm behind back, with cervical extension Reps/Minutes 10 x1 Comments for HEP Manual Therapy Treatment Soft Tissue Mobilization suboccipitals Mobilization Type Myofascial Release,Sustained Pressure,Trigger Point Release Intensity/Depth Deep Body Position Supine Comments good relief reported STM quad rolling Comments R quads, increased tension rectus femoris and vastus lateralis Joint Mobilizations T/spine Direction PA mob Grade II Body Position Prone PT-OP-T Assessment and Plan Start: 01/01/21 14:48 Freq: Status: Active Protocol: Document 01/08/21 09:02 (Rec: 01/08/21 09:49 [id number]) Physical Therapy Assessment Goals 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 LTG Duration 8 weeks HEP Impairment pt does not have HEP Short Term Goal (STG) pt will be compliant to daily HEP to improve her cervical stability and thoracic mobility STG Duration 4 weeks NDI Impairment pt scores 22/50 on NDI Short Term Goal (STG) pt will show improve activity tolerance and quality of life by scoring <15 on NDI STG Duration 4 weeks Group Home Goal (LTG) pt will show improve activity tolerance and quality of life by scoring <10 on NDI LTG Duration 8 weeks Assessment Summary Assessment pt ab session well and focused on increasing T/S extension mobility. Provided cues while reviewing median nerve glide. Physical Therapy Plan Frequency and Duration Frequency of Treatment 1-2x/wk Duration of Treatment 8 weeks Plan of Care Start Date 01/01/21 Plan of Care End Date 03/02/21 Therapeutic Interventions Therapeutic Interventions Home Exercise Program,Joint Mobilizations,Manual Therapy, Neuromuscular Re-education, Patient/Caregiver Education, Self-Care/Home Management,Soft Tissue Mobilization,Taping, Therapeutic Activities, Therapeutic Exercises Modalities Cold Pack/Ice Massage,Electric Stimulation,Hot Packs, Infrared Therapy,Traction- Mechanical,Ultrasound Next Visit Focus/Plan Next Note Type Treatment Note Next Visit Plan check UTTT review chin tuck thoracic extension, open book deep cervical ex.
--- NOTE | 2021-01-13 15:23 | PT.OTN ---
Current Diagnoses Other spondylosis with myelopathy, cervical region (01/13/21) Other intervertebral disc displacement, thoracic region (01/13/21) Physical Therapy Treatment Note PT-OP-A Visit Information Start: 01/01/21 14:48 Freq: Status: Active Protocol: Document 01/13/21 13:55 HH (Rec: 01/13/21 15:23 HH [id number]) Out-Patient Physical Therapy Visit Information Visit Information Visit Type Treatment Note Visit Note pt next visit with Dr. Dutton = Visit Start Time 14:30 Visit Stop Time 15:15 Total Visit Minutes 45 Visit Number 4 Number of MODEL MAKER FIBERGLASS Visits 0 PT-OP-B Current Condition Start: 01/01/21 14:48 Freq: Status: Active Protocol: Document 01/01/21 13:00 HH (Rec: 01/01/21 14:56 HH [email or web address]) Current Condition History of Current Condition Onset Date Summer 2019 Current Complaints chronic neck pain and stiffness History of Current Condition Dacia is a 45yo female here for her neck pain started last summer. She has been working from home since 2 years ago and she noticed that her neck tends to get stiff very easily at work. She needs to move her around and change of position for relief. She has had carpal tunnel release surgery last April d/t ongoing hand falling asleep but it actually did not relieve her symptoms after. She then went to see neurosurgeon Dr. Dutton and pt was dx with spinal stenosis, bone spur at C3-C5 and cervical radiculopathy. Dr Dutton recommended her to have ACDF C4-6 if this course of PT failed. Prior Treatments and Tests Pt has L4 herniated disc and lumbar radiulopathy who has had PT here at [facility] with good result. However, pt still has difficulty running d/t increase pain. Future Testing and Treatments Planned Dr Dutton recommended her to have ACDF C4-6 if this course of PT failed. Personal Factors Other Personal Factors That May Effect ADHD Therapy/Recovery depression HTN bruise easily PT-OP-C Subjective Start: 01/01/21 14:48 Freq: Status: Active Protocol: Document 01/13/21 13:55 HH (Rec: 01/13/21 15:23 HH [id number]) OP-PT Subjective Patient Comments Patient Comments My neck and shoulders are doing pretty good so far. My neck is feeling less heavy at night now. Patient Reported Progress Improving PT-OP-F Manual Assessment Start: 01/01/21 14:48 Freq: Status: Active Protocol: Document 01/01/21 13:00 HH (Rec: 01/01/21 16:16 [email or web address]) Manual Assessments Soft Tissue Assessment Soft Tissue Mobility Assessment significant hypertoncity at subocciptals, lower cervical paraspinals, upper trap Joint Mobility Assessment Joint Mobility Assessment hypomobile T1-T4 PT-OP-H Neuro Start: 01/01/21 14:48 Freq: Status: Active Protocol: Document 01/01/21 13:00 HH (Rec: 01/01/21 16:16 [email or web address]) Deep Tendon Reflex & Clonus Assessment Deep Tendon Reflex Bilateral Bicep Deep Tendon Reflex 2+ Normal Bilateral Tricep Deep Tendon Reflex 2+ Normal Bilateral Brachioradialis Deep Tendon Reflex 2+ Normal PT-OP-J Posture/Palpation/Skin Start: 01/01/21 14:48 Freq: Status: Active Protocol: Document 01/01/21 13:00 HH (Rec: 01/01/21 16:16 [email or web address]) Posture Evaluation Position Standing Evaluation View Lateral Head/C-Spine Posture Forward Head T-Spine Posture Increased Kyphosis L-Spine Posture Increased Lordosis Shoulder Posture (L) Rounded,(R) Rounded Pelvis Posture Anteriorly Tilted PT-OP-K Range of Motion Start: 01/01/21 14:48 Freq: Status: Active Protocol: Document 01/01/21 13:00 HH (Rec: 01/01/21 16:16 [email or web address]) Cervical Spine Range of Motion Cervical Spine Active Degrees Testing Position Standing Flexion 35 Extension 55 Rotation Left 65 Rotation Right 62 Lateral Flexion Left 35 Lateral Flexion Right 35 ROM Limitations Soft Tissue Tightness,Muscle Weakness,Pain Comments flexion with tightness at T spine angulation C5-6 during extension, lateral flexion and rotation. hypomobile T1-T4 during cervical movement PT-OP-L Special Tests Start: 01/01/21 14:48 Freq: Status: Active Protocol: Document 01/01/21 13:00 HH (Rec: 01/01/21 16:16 [email or web address]) Special Tests Cervical Spine Special Tests Traction Test Results +VE Comments good relief Upper Limb Tension Test Test Results will assess next visit Spurling's Test Test Results +ve B Comments radiating pain to upper trap Foraminal Compression Test Results +VE B PT-OP-M Strength Start: 01/01/21 14:48 Freq: Status: Active Protocol: Document 01/01/21 13:00 (Rec: 01/01/21 16:16 [email or web address]) Cervical Spine Strength Cervical Spine Manual Muscle Testing Testing Position Supine Comments chin tuck deep cervical flexion = 15s lateral flexion L= 8 s lateral flexion R= 10s extension = 20 s PT-OP-Q Treatments Start: 01/01/21 14:48 Freq: Status: Active Protocol: Document 01/13/21 13:55 HH (Rec: 01/13/21 15:23 [id number]) Cardio Equipment Upper Body Ergometer (UBE) Duration (Minutes) 5 Seat Position 13 Height 4 Therapeutic Exercises Supine Exercises chin lift Supine Exercise Name with chin tuck Reps/Minutes 10 s x 5 Comments for HEP Sidelying Exercises open book Sidelying Exercise Name with C/S rotation Side bilateral Reps/Minutes 10 x2 Standing Exercises chin tuck Standing Exercise Name with extension and rotation Reps/Minutes 10 x2 Comments for HEP wall slide Standing Exercise Name prayer stretch with arm extended. Resistance towel Reps/Minutes 10 x 2 median nerve glide Standing Exercise Name full extent Side right Reps/Minutes 10 x2 Comments review Manual Therapy Treatment Soft Tissue Mobilization suboccipitals Mobilization Type Myofascial Release,Sustained Pressure,Trigger Point Release Intensity/Depth Deep Body Position Supine Comments good relief reported Joint Mobilizations T/spine Direction PA mob Grade II Body Position Prone PT-OP-T Assessment and Plan Start: 01/01/21 14:48 Freq: Status: Active Protocol: Document 01/13/21 13:55 (Rec: 01/13/21 15:23 [id number]) Physical Therapy Assessment Goals pain 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 LTG Duration 8 weeks HEP Impairment pt does not have HEP Short Term Goal (STG) pt will be compliant to daily HEP to improve her cervical stability and thoracic mobility STG Duration 4 weeks NDI Impairment pt scores 22/50 on NDI Short Term Goal (STG) pt will show improve activity tolerance and quality of life by scoring <15 on NDI STG Duration 4 weeks Agriculture Manager Goal (LTG) pt will show improve activity tolerance and quality of life by scoring <10 on NDI LTG Duration 8 weeks Assessment Summary Assessment pt reports her neck is getting stronger and less heaviness feeling noted at night. Consolidated her HEP with focus on deep cervical flexor strengthening and T/S mobility therex. She is going to see surgeon next week and will f/u with her the week after. Physical Therapy Plan Frequency and Duration Frequency of Treatment 1-2x/wk Duration of Treatment 8 weeks Plan of Care Start Date 01/01/21 Plan of Care End Date 03/02/21 Therapeutic Interventions Therapeutic Interventions Home Exercise Program,Joint Mobilizations,Manual Therapy, Neuromuscular Re-education, Patient/Caregiver Education, Self-Care/Home Management,Soft Tissue Mobilization,Taping, Therapeutic Activities, Therapeutic Exercises Modalities Cold Pack/Ice Massage,Electric Stimulation,Hot Packs, Infrared Therapy,Traction- Mechanical,Ultrasound Next Visit Focus/Plan Next Note Type Treatment Note Next Visit Plan check UTTT review chin tuck thoracic extension, open book deep cervical ex.
--- NOTE | 2021-02-03 14:43 | PT.OTN ---
Current Diagnoses Other spondylosis with myelopathy, cervical region (02/03/21) Other intervertebral disc displacement, thoracic region (02/03/21) Physical Therapy Treatment Note PT-OP-A Visit Information Start: 01/01/21 14:48 Freq: Status: Active Protocol: Document 02/03/21 13:01 (Rec: 02/03/21 14:43 [id number]) Out-Patient Physical Therapy Visit Information Visit Information Visit Type Treatment Note Visit Note pt next visit with Dr. Dutton = Visit Start Time 14:30 Visit Stop Time 15:15 Total Visit Minutes 45 Visit Number 5 Number of TREE PULLER Visits 0 PT-OP-B Current Condition Start: 01/01/21 14:48 Freq: Status: Active Protocol: Document 01/01/21 13:00 HH (Rec: 01/01/21 14:56 [email or web address]) Current Condition History of Current Condition Onset Date Summer 2019 Current Complaints chronic neck pain and stiffness History of Current Condition Dacia is a 45yo female here for her neck pain started last summer. She has been working from home since 2 years ago and she noticed that her neck tends to get stiff very easily at work. She needs to move her around and change of position for relief. She has had carpal tunnel release surgery last April d/t ongoing hand falling asleep but it actually did not relieve her symptoms after. She then went to see neurosurgeon Dr. Dutton and pt was dx with spinal stenosis, bone spur at C3-C5 and cervical radiculopathy. Dr Dutton recommended her to have ACDF C4-6 if this course of PT failed. Prior Treatments and Tests Pt has L4 herniated disc and lumbar radiulopathy who has had PT here at [facility] with good result. However, pt still has difficulty running d/t increase pain. Future Testing and Treatments Planned Dr Dutton recommended her to have ACDF C4-6 if this course of PT failed. Personal Factors Other Personal Factors That May Effect ADHD Therapy/Recovery depression HTN bruise easily PT-OP-C Subjective Start: 01/01/21 14:48 Freq: Status: Active Protocol: Document 02/03/21 13:01 HH (Rec: 02/03/21 14:43 [id number]) OP-PT Subjective Patient Comments Patient Comments The nerve glide is very helpful and my numbness is completely gone at now. My upper back still feel tight after sitting for awhile for work. Im currently work 40 hours now. Pt is going to have ACDF somehwere in Apr. Patient Reported Progress Improving Patient Questionnaires Neck Disability Index NDI Score 17 Neck Disability Index Impairment 20 to 39% Impaired (Score 10- 19) PT-OP-F Manual Assessment Start: 01/01/21 14:48 Freq: Status: Active Protocol: Document 01/01/21 13:00 HH (Rec: 01/01/21 16:16 [email or web address]) Manual Assessments Soft Tissue Assessment Soft Tissue Mobility Assessment significant hypertoncity at subocciptals, lower cervical paraspinals, upper trap Joint Mobility Assessment Joint Mobility Assessment hypomobile T1-T4 PT-OP-H Neuro Start: 01/01/21 14:48 Freq: Status: Active Protocol: Document 01/01/21 13:00 HH (Rec: 01/01/21 16:16 [email or web address]) Deep Tendon Reflex & Clonus Assessment Deep Tendon Reflex Bilateral Bicep Deep Tendon Reflex 2+ Normal Bilateral Tricep Deep Tendon Reflex 2+ Normal Bilateral Brachioradialis Deep Tendon Reflex 2+ Normal PT-OP-J Posture/Palpation/Skin Start: 01/01/21 14:48 Freq: Status: Active Protocol: Document 01/01/21 13:00 HH (Rec: 01/01/21 16:16 [email or web address]) Posture Evaluation Position Standing Evaluation View Lateral Head/C-Spine Posture Forward Head T-Spine Posture Increased Kyphosis L-Spine Posture Increased Lordosis Shoulder Posture (L) Rounded,(R) Rounded Pelvis Posture Anteriorly Tilted PT-OP-K Range of Motion Start: 01/01/21 14:48 Freq: Status: Active Protocol: Document 01/01/21 13:00 HH (Rec: 01/01/21 16:16 [email or web address]) Cervical Spine Range of Motion Cervical Spine Active Degrees Testing Position Standing Flexion 35 Extension 55 Rotation Left 65 Rotation Right 62 Lateral Flexion Left 35 Lateral Flexion Right 35 ROM Limitations Soft Tissue Tightness,Muscle Weakness,Pain Comments flexion with tightness at T spine angulation C5-6 during extension, lateral flexion and rotation. hypomobile T1-T4 during cervical movement PT-OP-L Special Tests Start: 01/01/21 14:48 Freq: Status: Active Protocol: Document 01/01/21 13:00 HH (Rec: 01/01/21 16:16 [email or web address]) Special Tests Cervical Spine Special Tests Traction Test Results +VE Comments good relief Upper Limb Tension Test Test Results will assess next visit Spurling's Test Test Results +ve B Comments radiating pain to upper trap Foraminal Compression Test Results +VE B PT-OP-M Strength Start: 01/01/21 14:48 Freq: Status: Active Protocol: Document 01/01/21 13:00 HH (Rec: 01/01/21 16:16 [email or web address]) Cervical Spine Strength Cervical Spine Manual Muscle Testing Testing Position Supine Comments chin tuck deep cervical flexion = 15s lateral flexion L= 8 s lateral flexion R= 10s extension = 20 s PT-OP-Q Treatments Start: 01/01/21 14:48 Freq: Status: Active Protocol: Document 02/03/21 13:01 (Rec: 02/03/21 14:43 [id number]) Cardio Equipment Upper Body Ergometer (UBE) Duration (Minutes) 5 Seat Position 13 Height 4 Therapeutic Exercises Sitting Exercises wrist flexor stretch Side bilateral Reps/Minutes 10s hold x5 Standing Exercises wall angels Reps/Minutes 10 x2 Comments cues on neutral spine, arm extended wall clock Reps/Minutes 10 x2 Comments for HEP Manual Therapy Treatment Soft Tissue Mobilization suboccipitals Mobilization Type Myofascial Release,Sustained Pressure,Trigger Point Release Intensity/Depth Deep Body Position Supine Comments good relief reported PT-OP-T Assessment and Plan Start: 01/01/21 14:48 Freq: Status: Active Protocol: Document 02/03/21 13:01 (Rec: 02/03/21 14:43 [id number]) Physical Therapy Assessment Goals pain 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 LTG Duration 8 weeks HEP Impairment pt does not have HEP Short Term Goal (STG) 02/03 goal met pt will be compliant to daily HEP to improve her cervical stability and thoracic mobility STG Duration 4 weeks NDI Impairment pt scores 22/50 on NDI Short Term Goal (STG) 02/03 cont in progress pt scores 17/50 on NDI pt will show improve activity tolerance and quality of life by scoring <15 on NDI STG Duration 4 weeks [facility] Goal (LTG) pt will show improve activity tolerance and quality of life by scoring <10 on NDI LTG Duration 8 weeks Assessment Summary Assessment Reassessment today after her last visit on 01/13. Pt is doing well with significant improvements on cervical stability and mobility.She is working 40 hrs now and has good understanding to practice mobility ex to manage her symptoms. She also doesnt have neuro sign at night anymore. However, pt will have ACDF in april and would like to have one more session with PT. Physical Therapy Plan Frequency and Duration Frequency of Treatment 1-2x/wk Duration of Treatment 8 weeks Plan of Care Start Date 01/01/21 Plan of Care End Date 03/02/21 Therapeutic Interventions Therapeutic Interventions Home Exercise Program,Joint Mobilizations,Manual Therapy, Neuromuscular Re-education, Patient/Caregiver Education, Self-Care/Home Management,Soft Tissue Mobilization,Taping, Therapeutic Activities, Therapeutic Exercises Modalities Cold Pack/Ice Massage,Electric Stimulation,Hot Packs, Infrared Therapy,Traction- Mechanical,Ultrasound Next Visit Focus/Plan Next Note Type Treatment Note Next Visit Plan check UTTT review chin tuck thoracic extension, open book deep cervical ex.
--- NOTE | 2021-02-17 15:20 | PT.OTN ---
Current Diagnoses Other spondylosis with myelopathy, cervical region (02/17/21) Other intervertebral disc displacement, thoracic region (02/17/21) Physical Therapy Treatment Note PT-OP-A Visit Information Start: 01/01/21 14:48 Freq: Status: Active Protocol: Document 02/17/21 14:33 HH (Rec: 02/17/21 15:20 [id number]) Out-Patient Physical Therapy Visit Information Visit Information Visit Type Treatment Note Visit Note ACDF on 04/09 Visit Start Time 14:31 Visit Stop Time 15:15 Total Visit Minutes 44 Visit Number 6 Number of COAT EXAMINER Visits 0 PT-OP-B Current Condition Start: 01/01/21 14:48 Freq: Status: Active Protocol: Document 01/01/21 13:00 HH (Rec: 01/01/21 14:56 HH [email or web address]) Current Condition History of Current Condition Onset Date Summer 2019 Current Complaints chronic neck pain and stiffness History of Current Condition Dacia is a 45yo female here for her neck pain started last summer. She has been working from home since 2 years ago and she noticed that her neck tends to get stiff very easily at work. She needs to move her around and change of position for relief. She has had carpal tunnel release surgery last April d/t ongoing hand falling asleep but it actually did not relieve her symptoms after. She then went to see neurosurgeon Dr. Dutton and pt was dx with spinal stenosis, bone spur at C3-C5 and cervical radiculopathy. Dr Dutton recommended her to have ACDF C4-6 if this course of PT failed. Prior Treatments and Tests Pt has L4 herniated disc and lumbar radiulopathy who has had PT here at [facility] with good result. However, pt still has difficulty running d/t increase pain. Future Testing and Treatments Planned Dr Dutton recommended her to have ACDF C4-6 if this course of PT failed. Personal Factors Other Personal Factors That May Effect ADHD Therapy/Recovery depression HTN bruise easily PT-OP-C Subjective Start: 01/01/21 14:48 Freq: Status: Active Protocol: Document 02/17/21 14:33 HH (Rec: 02/17/21 15:20 [id number]) OP-PT Subjective Patient Comments Patient Comments Everything is doing pretty good. My numbness is pretty good. Wall beto is a little hard so I had to do it on the floor. Patient Reported Progress Improving PT-OP-F Manual Assessment Start: 01/01/21 14:48 Freq: Status: Active Protocol: Document 01/01/21 13:00 HH (Rec: 01/01/21 16:16 [email or web address]) Manual Assessments Soft Tissue Assessment Soft Tissue Mobility Assessment significant hypertoncity at subocciptals, lower cervical paraspinals, upper trap Joint Mobility Assessment Joint Mobility Assessment hypomobile T1-T4 PT-OP-H Neuro Start: 01/01/21 14:48 Freq: Status: Active Protocol: Document 01/01/21 13:00 HH (Rec: 01/01/21 16:16 [email or web address]) Deep Tendon Reflex & Clonus Assessment Deep Tendon Reflex Bilateral Bicep Deep Tendon Reflex 2+ Normal Bilateral Tricep Deep Tendon Reflex 2+ Normal Bilateral Brachioradialis Deep Tendon Reflex 2+ Normal PT-OP-J Posture/Palpation/Skin Start: 01/01/21 14:48 Freq: Status: Active Protocol: Document 01/01/21 13:00 HH (Rec: 01/01/21 16:16 [email or web address]) Posture Evaluation Position Standing Evaluation View Lateral Head/C-Spine Posture Forward Head T-Spine Posture Increased Kyphosis L-Spine Posture Increased Lordosis Shoulder Posture (L) Rounded,(R) Rounded Pelvis Posture Anteriorly Tilted PT-OP-K Range of Motion Start: 01/01/21 14:48 Freq: Status: Active Protocol: Document 01/01/21 13:00 HH (Rec: 01/01/21 16:16 [email or web address]) Cervical Spine Range of Motion Cervical Spine Active Degrees Testing Position Standing Flexion 35 Extension 55 Rotation Left 65 Rotation Right 62 Lateral Flexion Left 35 Lateral Flexion Right 35 ROM Limitations Soft Tissue Tightness,Muscle Weakness,Pain Comments flexion with tightness at T spine angulation C5-6 during extension, lateral flexion and rotation. hypomobile T1-T4 during cervical movement PT-OP-L Special Tests Start: 01/01/21 14:48 Freq: Status: Active Protocol: Document 01/01/21 13:00 HH (Rec: 01/01/21 16:16 [email or web address]) Special Tests Cervical Spine Special Tests Traction Test Results +VE Comments good relief Upper Limb Tension Test Test Results will assess next visit Spurling's Test Test Results +ve B Comments radiating pain to upper trap Foraminal Compression Test Results +VE B PT-OP-M Strength Start: 01/01/21 14:48 Freq: Status: Active Protocol: Document 01/01/21 13:00 (Rec: 01/01/21 16:16 [email or web address]) Cervical Spine Strength Cervical Spine Manual Muscle Testing Testing Position Supine Comments chin tuck deep cervical flexion = 15s lateral flexion L= 8 s lateral flexion R= 10s extension = 20 s PT-OP-Q Treatments Start: 01/01/21 14:48 Freq: Status: Active Protocol: Document 02/17/21 14:33 (Rec: 02/17/21 15:20 [id number]) Cardio Equipment Upper Body Ergometer (UBE) Duration (Minutes) 5 Seat Position 13 Height 4 Therapeutic Exercises Sitting Exercises shoulder press Side bilateral Equipment Used 3lbs DB Reps/Minutes 10 x1 Comments for HEP Standing Exercises shoulder extension Equipment Used level 2 band Reps/Minutes 10 x2 Comments for HEP Manual Therapy Treatment Soft Tissue Mobilization wrist flexors Body Location bilateral Mobilization Type Myofascial Release Intensity/Depth Moderate Body Position Sitting Self-Care/Home Management Treatment Education Other Education provided ACDF brochure to pt today which includes POC, expectation of the surgery, DME companies etc. 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 LTG Duration 8 weeks HEP Impairment pt does not have HEP Short Term Goal (STG) 02/03 goal met pt will be compliant to daily HEP to improve her cervical stability and thoracic mobility STG Duration 4 weeks NDI Impairment pt scores 22/50 on NDI Short Term Goal (STG) 02/03 cont in progress pt scores 17/50 on NDI pt will show improve activity tolerance and quality of life by scoring <15 on NDI STG Duration 4 weeks Bar Examiner Goal (LTG) pt will show improve activity tolerance and quality of life by scoring <10 on NDI LTG Duration 8 weeks Assessment Summary Assessment pt is pleased with her progress. No reproduce pain with special tests today and WFL cervical ROM. She is going to have ACDF with Dr. Dutton on 04/09. Provided surgical brochure today and pt shows good understanding of the surgery, prognosis and expectation Physical Therapy Plan Frequency and Duration Frequency of Treatment 1-2x/wk Duration of Treatment 8 weeks Plan of Care Start Date 01/01/21 Plan of Care End Date 03/02/21 Therapeutic Interventions Therapeutic Interventions Home Exercise Program,Joint Mobilizations,Manual Therapy, Neuromuscular Re-education, Patient/Caregiver Education, Self-Care/Home Management,Soft Tissue Mobilization,Taping, Therapeutic Activities, Therapeutic Exercises Modalities Cold Pack/Ice Massage,Electric Stimulation,Hot Packs, Infrared Therapy,Traction- Mechanical,Ultrasound Next Visit Focus/Plan Next Note Type Treatment Note Next Visit Plan check UTTT review chin tuck thoracic extension, open book deep cervical ex.
--- NOTE | 2021-02-17 15:27 | PT.OPDS ---
Current Diagnoses Other spondylosis with myelopathy, cervical region (02/17/21) Other intervertebral disc displacement, thoracic region (02/17/21) Visit Care Team Role Provider Type Kj Hall MD Family Provider Physician Primary Care Provider Specialty: Family Practice Address: [address] [place] [address], [place], [address] Email: [email or web address] Dutton DO Attending Provider Non-Staff Referring Provider Specialty: Neurology Address: [address] [place] [address], [id number] Email: Visit Number Visit Number 6 Discharge Summary PT-OP-B Current Condition Start: 01/01/21 14:48 Freq: Status: Active Protocol: Document 01/01/21 13:00 HH (Rec: 01/01/21 14:56 HH [email or web address]) Current Condition History of Current Condition Onset Date Summer 2019 Current Complaints chronic neck pain and stiffness History of Current Condition Dacia is a 45yo female here for her neck pain started last summer. She has been working from home since 2 years ago and she noticed that her neck tends to get stiff very easily at work. She needs to move her around and change of position for relief. She has had carpal tunnel release surgery last April d/t ongoing hand falling asleep but it actually did not relieve her symptoms after. She then went to see neurosurgeon Dr. Dutton and pt was dx with spinal stenosis, bone spur at C3-C5 and cervical radiculopathy. Dr Dutton recommended her to have ACDF C4-6 if this course of PT failed. Prior Treatments and Tests Pt has L4 herniated disc and lumbar radiulopathy who has had PT here at [facility] with good result. However, pt still has difficulty running d/t increase pain. Future Testing and Treatments Planned Dr Dutton recommended her to have ACDF C4-6 if this course of PT failed. Personal Factors Other Personal Factors That May Effect ADHD Therapy/Recovery depression HTN bruise easily PT-OP-C Subjective Start: 01/01/21 14:48 Freq: Status: Active Protocol: Document 02/17/21 14:33 HH (Rec: 02/17/21 15:20 HH [id number]) OP-PT Subjective Patient Comments Patient Comments Everything is doing pretty good. My numbness is pretty good. Wall beto is a little hard so I had to do it on the floor. Patient Reported Progress Improving PT-OP-F Manual Assessment Start: 01/01/21 14:48 Freq: Status: Active Protocol: Document 01/01/21 13:00 HH (Rec: 01/01/21 16:16 [email or web address]) Manual Assessments Soft Tissue Assessment Soft Tissue Mobility Assessment significant hypertoncity at subocciptals, lower cervical paraspinals, upper trap Joint Mobility Assessment Joint Mobility Assessment hypomobile T1-T4 PT-OP-H Neuro Start: 01/01/21 14:48 Freq: Status: Active Protocol: Document 01/01/21 13:00 HH (Rec: 01/01/21 16:16 [email or web address]) Deep Tendon Reflex & Clonus Assessment Deep Tendon Reflex Bilateral Bicep Deep Tendon Reflex 2+ Normal Bilateral Tricep Deep Tendon Reflex 2+ Normal Bilateral Brachioradialis Deep Tendon Reflex 2+ Normal PT-OP-J Posture/Palpation/Skin Start: 01/01/21 14:48 Freq: Status: Active Protocol: Document 01/01/21 13:00 HH (Rec: 01/01/21 16:16 [email or web address]) Posture Evaluation Position Standing Evaluation View Lateral Head/C-Spine Posture Forward Head T-Spine Posture Increased Kyphosis L-Spine Posture Increased Lordosis Shoulder Posture (L) Rounded,(R) Rounded Pelvis Posture Anteriorly Tilted PT-OP-K Range of Motion Start: 01/01/21 14:48 Freq: Status: Active Protocol: Document 01/01/21 13:00 HH (Rec: 01/01/21 16:16 [email or web address]) Cervical Spine Range of Motion Cervical Spine Active Degrees Testing Position Standing Flexion 35 Extension 55 Rotation Left 65 Rotation Right 62 Lateral Flexion Left 35 Lateral Flexion Right 35 ROM Limitations Soft Tissue Tightness,Muscle Weakness,Pain Comments flexion with tightness at T spine angulation C5-6 during extension, lateral flexion and rotation. hypomobile T1-T4 during cervical movement PT-OP-L Special Tests Start: 01/01/21 14:48 Freq: Status: Active Protocol: Document 01/01/21 13:00 HH (Rec: 01/01/21 16:16 [email or web address]) Special Tests Cervical Spine Special Tests Traction Test Results +VE Comments good relief Upper Limb Tension Test Test Results will assess next visit Spurling's Test Test Results +ve B Comments radiating pain to upper trap Foraminal Compression Test Results +VE B PT-OP-M Strength Start: 01/01/21 14:48 Freq: Status: Active Protocol: Document 01/01/21 13:00 HH (Rec: 01/01/21 16:16 [email or web address]) Cervical Spine Strength Cervical Spine Manual Muscle Testing Testing Position Supine Comments chin tuck deep cervical flexion = 15s lateral flexion L= 8 s lateral flexion R= 10s extension = 20 s PT-OP-T Assessment and Plan Start: 01/01/21 14:48 Freq: Status: Active Protocol: Document 02/17/21 14:33 HH (Rec: 02/17/21 15:20 [id number]) Physical Therapy Assessment Goals pain 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 LTG Duration 8 weeks HEP Impairment pt does not have HEP Short Term Goal (STG) 02/03 goal met pt will be compliant to daily HEP to improve her cervical stability and thoracic mobility STG Duration 4 weeks NDI Impairment pt scores 22/50 on NDI Short Term Goal (STG) 02/03 cont in progress pt scores 17/50 on NDI pt will show improve activity tolerance and quality of life by scoring <15 on NDI STG Duration 4 weeks Automation And Controls Manager Goal (LTG) pt will show improve activity tolerance and quality of life by scoring <10 on NDI LTG Duration 8 weeks Assessment Summary Assessment pt is pleased with her progress. No reproduce pain with special tests today and WFL cervical ROM. She is going to have ACDF with Dr. Dutton on 04/09. Provided surgical brochure today and pt shows good understanding of the surgery, prognosis and expectation Physical Therapy Plan Frequency and Duration Frequency of Treatment 1-2x/wk Duration of Treatment 8 weeks Plan of Care Start Date 01/01/21 Plan of Care End Date 03/02/21 Therapeutic Interventions Therapeutic Interventions Home Exercise Program,Joint Mobilizations,Manual Therapy, Neuromuscular Re-education, Patient/Caregiver Education, Self-Care/Home Management,Soft Tissue Mobilization,Taping, Therapeutic Activities, Therapeutic Exercises Modalities Cold Pack/Ice Massage,Electric Stimulation,Hot Packs, Infrared Therapy,Traction- Mechanical,Ultrasound Next Visit Focus/Plan Next Note Type Treatment Note Next Visit Plan check UTTT review chin tuck thoracic extension, open book deep cervical ex.
== END 2021-06-08 09:54 ==
LOC: PHYS 14:30
PROVIDERS: Family Provider Family Medicine; PCP Family Medicine; Referring Provider Neurological Surgery; Visit Provider Neurological Surgery
DX: M47.12 Other spondylosis with myelopathy, cervical region (principal); M51.24 Other intervertebral disc displacement, thoracic region
CPT/HCPCS: 97110; 97140; 97161; 97535

== ENCOUNTER → 2021-06-11 15:43 | Outpatient (CLI) | payer BC, SELFPAY ==
--- NOTE | 2021-06-11 15:45 | DI.MG.S_ITS ---
BILATERAL DIGITAL SCREENING MAMMOGRAM 3D/2D WITH CAD: 06/11/2021 CLINICAL: Routine screening. Family history of breast cancer. Comparison is made to exams dated: 06/08/2020 mammogram, 06/06/2019 mammogram, and 05/18/2018 mammogram - [facility]. There are scattered fibroglandular elements in both breasts. Current study was also evaluated with a Computer Aided Detection (CAD) system. No significant masses, calcifications, or other findings are seen in either breast. There has been no significant interval change. IMPRESSION: NEGATIVE There is no mammographic evidence of malignancy. A 1 year screening mammogram is recommended. This exam was interpreted at Station ID: [id number]. NOTE: For mammograms, a report in lay terms will be sent to the patient. Approximately 15% of breast malignancies will not be visualized mammographically. In the management of a palpable breast mass, a negative mammogram must not discourage biopsy of a clinically suspicious lesion. Electronically Signed By: Raphael Solis M.D., jr/adan:06/14/2021 08:37:43 letter sent: Normal Exam ACR BI-RADS Category 1: Negative [id number]
== END ==
PROVIDERS: Family Provider Family Medicine; PCP Family Medicine; Referring Provider Family Medicine; Visit Provider Family Medicine
DX: Z12.31 Encounter for screening mammogram for malignant neoplasm of breast (principal); Z80.3 Family history of malignant neoplasm of breast
CPT/HCPCS: 77063; 77067

== ENCOUNTER → 2022-07-19 16:24 | Outpatient (CLI) | payer BC, SELFPAY ==
--- NOTE | 2022-07-19 16:25 | DI.MG.S_ITS ---
BILATERAL DIGITAL SCREENING MAMMOGRAM 3D/2D WITH CAD: 07/19/2022 CLINICAL: Routine screening. Family history of breast cancer. Comparison is made to exams dated: 06/11/2021 mammogram, 06/08/2020 mammogram, and 06/06/2019 mammogram - [facility]. There are scattered areas of fibroglandular density in both breasts (category b / 25%-50% glandular tissue). Current study was also evaluated with a Computer Aided Detection (CAD) system. No significant masses, calcifications, or other findings are seen in either breast. There has been no significant interval change. IMPRESSION: NEGATIVE There is no mammographic evidence of malignancy. A 1 year screening mammogram is recommended. Based on the Tyrer Cuzick model (a risk assessment model) the patient's lifetime risk is 16.3% and her 10 year risk is 3.3%. According to the ACR, ACS, and NCCN guidelines, an annual breast MRI exam along with mammogram is recommended if the patient's lifetime risk is 20% or greater. This exam was interpreted at Station ID: [id number]. NOTE: For mammograms, a report in lay terms will be sent to the patient. Approximately 15% of breast malignancies will not be visualized mammographically. In the management of a palpable breast mass, a negative mammogram must not discourage biopsy of a clinically suspicious lesion. Electronically Signed By: Thierry paiz/adan:07/20/2022 08:45:46 letter sent: Normal Exam ACR BI-RADS Category 1: Negative [id number]
== END ==
PROVIDERS: Family Provider Family Medicine; PCP Family Medicine; Referring Provider Family Medicine; Visit Provider Family Medicine
DX: Z12.31 Encounter for screening mammogram for malignant neoplasm of breast (principal); Z80.3 Family history of malignant neoplasm of breast
CPT/HCPCS: 77063; 77067

== ENCOUNTER → 2022-09-30 07:21 | Outpatient (CLI) | payer BC, SELFPAY ==
--- NOTE | 2022-09-30 | DI.US.S_ITS ---
PROCEDURE: US ABDOMEN COMPLETE INDICATIONS: Right upper quadrant pain TECHNIQUE: Real-time scanning was performed of the abdominal and retroperitoneal organs, with image documentation. COMPARISON: [facility], CT, CT ABDOMEN PELVIS W CON, 04/04/2019, 8:57. [facility], US, ABDOMEN COMPLETE, 02/10/2016, 7:18. FINDINGS: Liver: Liver is normal in size and homogeneous in echotexture. Gallbladder: The gallbladder appears normal without gallstones or gallbladder wall thickening. There is no pericholecystic fluid. Sonographic Roberts sign is negative. Biliary ducts: Intrahepatic bile ducts are non-dilated. Extrahepatic bile duct caliber measures 3 mm. Normal is 6-7 mm or less in diameter, or 10 mm or less post-cholecystectomy. Pancreas: Pancreas is not well visualized due to overlying bowel gas. Spleen: Spleen is normal in size and homogeneous in echotexture. Kidneys: Kidneys are normal in size and echotexture. Right kidney measures 10.1 cm long; left kidney measures 9.4 cm long. No hydronephrosis or nephrolithiasis. No solid masses. Aorta: Visualized aorta is normal in caliber at less than 3 cm. Iliacs: Proximal common iliac arteries are normal in caliber at less than 2.5 cm. IVC: Intrahepatic inferior vena cava is patent. Miscellaneous: No free abdominal fluid. IMPRESSION: No significant sonographic abnormality. No source for right upper quadrant pain identified. Approved by: Luis Davis M.D. on 09/30/2022 at 10:35
== END ==
PROVIDERS: Family Provider Family Medicine; PCP Family Medicine; Referring Provider Family Medicine; Visit Provider Family Medicine
DX: R10.11 Right upper quadrant pain (principal)
CPT/HCPCS: 76700

== ENCOUNTER 2024-02-19 11:30 | Outpatient (RCR) | payer BC, SELFPAY ==
--- NOTE | 2023-11-13 17:14 | PT.OIE ---
Current Diagnoses Other chronic pain (11/13/23) Low back pain, unspecified (11/13/23) Past Medical History (Last Updated 09/23/20 @ 15:23 by Genevieve Lovell DO) Alcohol use disorder, moderate, in sustained remission Breathing-related sleep disorder Insomnia (~2016) Obstructive sleep apnea of adult (~2017) Snoring (~2017) Past Surgical History (Last Updated 06/25/21 @ 16:58 by Genevieve Lovell DO) History of bladder suspension procedure History of gastric bypass (05/10/04) History of third molar tooth extraction Status post cervical disc replacement (~04/2021) Status post tonsillectomy and adenoidectomy Status post tubal ligation Visit Care Team Role Provider Type Kj Hall MD Attending Provider Physician Family Provider Primary Care Provider Referring Provider Specialty: [facility] Address: [address] [place] [address], [facility] Email: [email or web address] Initial Evaluation PT-OP-A Visit Information Start: 11/03/23 19:53 Freq: Status: Active Protocol: Document 11/13/23 09:49 LRN (Rec: 11/13/23 10:38 LRN [id number]) Out-Patient Physical Therapy Visit Information Visit Information Visit Type Initial Evaluation Visit Start Time 09:49 Visit Stop Time 10:34 Visit Number 1 Evaluation Information Evaluation Date 11/13/23 Precautions Precautions Pt reported hx of C4-C5, C5-C6 disc replacement-04/13/2021, hypothyroid controlled w/meds & HBP controlled w/2 meds, depression controlled w/meds. Ms relaxor to sleep at night . PT-OP-B Current Condition Start: 11/03/23 19:53 Freq: Status: Active Protocol: Document 11/13/23 09:49 LRN (Rec: 11/13/23 10:38 LRN [id number]) Current Condition History of Current Condition Onset Date 03/2019 Current Complaints LBP & R upper thigh pain, numb in LLE in L4 nerve pattern History of Current Condition Pt reports on September 12 woke from bed and could barely walk . Pt denies injury onset. Pain has decreased over time. MRI- 2 wks ago in [place] (MRI 2022 showed reduction of disc L4-L5), stating her back looked like when she had originally hurt her back in 2019. She states she has always had numbness in front of L lower hoff and into the medial side of L foot. She sleeps on her L>R side at night. Rolls on foam roller a lot. Pt reports being on Meloxicam for the nerve pain, but might change from Gapabentin to meloxicam. Prior Treatments and Tests PT rehab in May and Jun 2019 for LBP, cont'd to run with leg brace. Nerve conduction study at - May or Jun. Treatment Goals Patient/Caregiver Goals .............. Difficulty sleeping, improve sitting (2 hr) to work longer and standing (10-15') for longer periods to cook, do dishes, Mow lawn w/o R LB/R Leg pain. Prior Functional Status Baseline Function- Recreation/Hobbies Pilates for a year now Current Functional Impairments (Reported) Functional Limitations- ADL's Not cooking as much, because can't stand greater than 15' or sit greater than 45-60' for work. Functional Limitations- Recreation/ Must modify her Pilates Hobbies workout regime. 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 Has tried sitting on ball but doesn't help with pain. Has standing desk but doesn't feel good to stand and work. Pilates workout 2x/week. Single mom with 2 teenagers. 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 PT-OP-C Subjective Start: 11/03/23 19:53 Freq: Status: Active Protocol: Document 11/13/23 09:49 LRN (Rec: 11/13/23 10:38 LRN [id number]) Patient Questionnaires Oswestry Low Back Index Oswestry Score 18/50 = 36/100 Oswestry Impairment 20 to 39% Impaired (Score 20- 39) OP-PT Pain Assessment Pain Assessment Grid Paper Pain Assessment Grid Completed Yes Location Anterior R thigh Pain Location Details Anterior R thigh Intensity 5 Scale Used Numeric (0 - 10) Description Aching Frequency Intermittent Pain Alleviating Factors Heat,Lying Supine,Massage Other Pain Alleviating Factors Rolling on foam roller, supine with R leg elevated, heat Low back Pain Location Details R low back Intensity 5 Scale Used Numeric (0 - 10) Description Aching Frequency Intermittent Pain Alleviating Factors Heat,Lying Supine,Massage Other Pain Alleviating Factors Rolling on foam roller, supine with R leg elevated, heat PT-OP-J Posture/Palpation/Skin Start: 11/03/23 19:53 Freq: Status: Active Protocol: Document 11/13/23 09:49 LRN (Rec: 11/13/23 10:38 LRN [id number]) Posture Evaluation Position Standing T-Spine Posture Flattened L-Spine Posture Increased Lordosis Comments Posture Comments flat upper T/S dowagers, increased lordosis L4-L5, varus of lower leg. Palpation Assessment Location Low back Palpation Location R lumbar paraspinals and upper gluteals Palpation Findings Soft Tissue Tightness,Muscle Guarding,Tenderness PT-OP-K Range of Motion Start: 11/03/23 19:53 Freq: Status: Active Protocol: Document 11/13/23 09:49 LRN (Rec: 11/13/23 10:38 LRN [id number]) Hip Goniometric Range of Motion Hip Right Passive Testing Position Supine Straight Leg Raise 60 Internal Rotation 20 External Rotation 30 Left Passive Testing Position Supine Straight Leg Raise 75 Internal Rotation 30 External Rotation 60 PT-OP-L Special Tests Start: 11/03/23 19:53 Freq: Status: Active Protocol: Document 11/13/23 09:49 LRN (Rec: 11/13/23 10:38 LRN [id number]) Special Tests Lumbar Spine Special Tests Manual Traction Test Results - Comments Gentle traction applied Straight Leg Raise Test Results + R Comments at 60 deg's increased R LBP Slump Test Results + R side Comments R LBP Vertical Spine Loading Test Results - Comments No change in pain PT-OP-M Strength Start: 11/03/23 19:53 Freq: Status: Active Protocol: Document 11/13/23 09:49 LRN (Rec: 11/13/23 10:38 LRN [id number]) Hip Strength Hip Manual Muscle Testing Right Comments All muscle groups 3/5 limited by R sided LBP Left Comments All muscle groups 3+/5 limited by R sided LBP Knee Strength Knee Manual Muscle Testing Right Flexion (S2) 5 Normal Extension (L3) 5 Normal Left Flexion (S2) 5 Normal Extension (L3) 5 Normal PT-OP-Q Treatments Start: 11/03/23 19:53 Freq: Status: Active Protocol: Document 11/13/23 09:49 LRN (Rec: 11/13/23 10:38 DELMAR [id number]) Therapeutic Exercises Prone Exercises Prone press ups Reps/Minutes 10x Comments Cued not to move into pain, extra time to determine max ab mvmt and reps. Therapeutic Activity Therapeutic Activity Sitting breaks Name Reviewed standing trunk ext as rest break from sitting every 30 minutes Nighttime positioning Name Pt education and practice in positioning Comments Straight, pillow between knees and towel support under small of hips on sides Transfers Name Transfer training wit<>supine with log roll method Self-Care/Home Management Treatment Education Other Education Discussed results of evaluation, goals, treatment, and plan of care (POC) with pt , attendance/cx/dns policy; pt agreeable to evaluation, goals, treatment, attendance/ cx/dns policy and POC. Activities Self-Care/Home Management Activities Instructed pt in HEP: prone trunk ext, standing trunk ext during standing work rest breaks. Instructed pt for home activities: Nighttime positioning w/pillow btn knees and towel roll under small of sides, and log roll technique for sit<>supine transfers. PT-OP-T Assessment and Plan Start: 11/03/23 19:53 Freq: Status: Active Protocol: Document 11/13/23 09:49 LRN (Rec: 11/13/23 10:38 DELMAR [id number]) Physical Therapy Assessment Rehab Potential Rehabilitation Potential Good Evaluation Complexity Number of Personal Factors/Comorbidities 1-2 Number of Body Systems Impaired 4 or More Clinical Presentation at Evaluation Evolving Impairments Impairments Activity Tolerance,Functional Activities,Pain,Posture,ROM, Soft Tissue Mobility,Strength, Transfers Goals Four Impairment Functionally limited in ability to mow lawn due to R LB/R leg pain Short Term Goal (STG) Improve core stabilization strength and pt educated in body mechanics with demonstration of proper form to reduce R LB and R leg pain with mowing movement. STG Duration 6 wks-12/25/23 Color Mixer Goal (LTG) Improve function with pt able to lawn mow w/o R LB/R leg pain. LTG Duration 13 wks-02/09/24 Three Impairment Sleep interruption Short Term Goal (STG) Pt will be educated and sleeping with modifications to support of legs and trunk. STG Duration 1 wk-05/22/23 Color Mixer Goal (LTG) Pt will be able to sleep 5-7 hrs at night without waking due to pain. LTG Duration 13 wks-02/09/24 Two Impairment Difficulty sitting (<15') and standing (<45-60') Short Term Goal (STG) Pt will be educated and demonstrate knowledge of proper sitting and standing posture. STG Duration 2 wks-11/27/23 Color Mixer Goal (LTG) Improve activity tolerance with pt able to improve sitting (2 hrs) to work longer and standing (> 15') for longer periods to cook and wash do dishes. LTG Duration 13 wks-02/09/24 One Impairment HEP Assessment Summary Assessment Pt is a 48 yo female who presents with L1-L2 radicular pain the low back and L anterior thigh, and L medial anterior hoff and foot in saphenous nerve distribution. 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 The pt will benefit from skilled physical therapy to improve core stability with her job and functional activities, decrease pain, improve L LE sensation and reed hip strength and education in proper positioning, body mechanics, ADL mvmts and home exercise program. Physical Therapy Plan Frequency and Duration Frequency of Treatment 2x/Week Duration of treatment (weeks) 13 Plan of Care Start Date 11/13/23 Plan of Care End Date 02/09/24 Therapeutic Interventions Therapeutic Interventions Balance Training,Gait Training ,Home Exercise Program,Joint Mobilizations,Manual Therapy, Neuromuscular Re-education, Self-Care/Home Management,Soft Tissue Mobilization,Taping, Therapeutic Activities, Therapeutic Exercises Modalities Biofeedback,Electric Stimulation,Hot Packs,Traction - Mechanical,Ultrasound Next Visit Focus/Plan Next Note Type Treatment Note Next Visit Plan Next: ROM L/S. Try Manual lumbar traction, assessment of her current stretches and STM with modifications as needed, saphaneous n assessment. POC: Extension protocol for L4-L5 herniated discs, L1-L2 & L4-5 radiculopathy, L saphenous nerve protection/?n glides, core stabilization, hip stretches/strengthening, review of proper posture and body mechanics. Modalities: MH, mechanical L/S traction if + response to manual traction .
--- NOTE | 2023-11-13 17:15 | PT.OPPOC ---
Physical, Occupational & Speech Therapy At [facility] Current Diagnoses Other chronic pain (11/13/23) Low back pain, unspecified (11/13/23) Visit Care Team Role Provider Type Kj Hall MD Attending Provider Physician Family Provider Primary Care Provider Referring Provider Specialty: [facility] Practice Address: [address] [place] [address], [facility] Email: [email or web address] Plan Of Care PT-OP-T Assessment and Plan Start: 11/03/23 19:53 Freq: Status: Active Protocol: Document 11/13/23 09:49 LRN (Rec: 11/13/23 10:38 LRN [id number]) Physical Therapy Assessment Rehab Potential Rehabilitation Potential Good Evaluation Complexity Number of Personal Factors/Comorbidities 1-2 Number of Body Systems Impaired 4 or More Clinical Presentation at Evaluation Evolving Impairments Impairments Activity Tolerance,Functional Activities,Pain,Posture,ROM, Soft Tissue Mobility,Strength, Transfers Goals Four Impairment Functionally limited in ability to mow lawn due to R LB/R leg pain Short Term Goal (STG) Improve core stabilization strength and pt educated in body mechanics with demonstration of proper form to reduce R LB and R leg pain with mowing movement. STG Duration 6 wks-12/25/23 Detention Goal (LTG) Improve function with pt able to lawn mow w/o R LB/R leg pain. LTG Duration 13 wks-02/09/24 Three Impairment Sleep interruption Short Term Goal (STG) Pt will be educated and sleeping with modifications to support of legs and trunk. STG Duration 1 wk-05/22/23 Detention Goal (LTG) Pt will be able to sleep 5-7 hrs at night without waking due to pain. LTG Duration 13 wks-02/09/24 Two Impairment Difficulty sitting (<15') and standing (<45-60') Short Term Goal (STG) Pt will be educated and demonstrate knowledge of proper sitting and standing posture. STG Duration 2 wks-11/27/23 Detention Goal (LTG) Improve activity tolerance with pt able to improve sitting (2 hrs) to work longer and standing (> 15') for longer periods to cook and wash do dishes. LTG Duration 13 wks-02/09/24 One Impairment HEP Assessment Summary Assessment Pt is a 48 yo female who presents with L1-L2 radicular pain the low back and L anterior thigh, and L medial anterior hoff and foot in saphenous nerve distribution. 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 The pt will benefit from skilled physical therapy to improve core stability with her job and functional activities, decrease pain, improve L LE sensation and reed hip strength and education in proper positioning, body mechanics, ADL mvmts and home exercise program. Physical Therapy Plan Frequency and Duration Frequency of Treatment 2x/Week Duration of treatment (weeks) 13 Plan of Care Start Date 11/13/23 Plan of Care End Date 02/09/24 Therapeutic Interventions Therapeutic Interventions Balance Training,Gait Training ,Home Exercise Program,Joint Mobilizations,Manual Therapy, Neuromuscular Re-education, Self-Care/Home Management,Soft Tissue Mobilization,Taping, Therapeutic Activities, Therapeutic Exercises Modalities Biofeedback,Electric Stimulation,Hot Packs,Traction - Mechanical,Ultrasound Next Visit Focus/Plan Next Note Type Treatment Note Next Visit Plan Next: ROM L/S. Try Manual lumbar traction, assessment of her current stretches and STM with modifications as needed, saphaneous n assessment. POC: Extension protocol for L4-L5 herniated discs, L1-L2 & L4-5 radiculopathy, L saphenous nerve protection/?n glides, core stabilization, hip stretches/strengthening, review of proper posture and body mechanics. Modalities: MH, mechanical L/S traction if + response to manual traction . Plan of Care Dates Plan of Care Start Date 11/13/23 Plan of Care End Date 02/09/24 Electronically Signed by: Felisa Jacob, PT 11/14/23 3089 If you are in agreement with this Plan of Care, please return a signed and dated copy. I have reviewed this Plan of Care and certify that the skilled therapy services above are required to meet the patient?s needs. Physician Signature Date Printed Name and Credentials Clinical Instructor Signature Printed Name and Credentials
--- NOTE | 2023-11-16 13:38 | PT.OTN ---
Current Diagnoses Other chronic pain (11/16/23) Low back pain, unspecified (11/16/23) Physical Therapy Treatment Note PT-OP-A Visit Information Start: 11/03/23 19:53 Freq: Status: Active Protocol: Document 11/16/23 07:33 LRN (Rec: 11/16/23 08:17 LRN [id number]) Out-Patient Physical Therapy Visit Information Visit Information Visit Type Treatment Note Visit Start Time 07:33 Visit Stop Time 08:16 Visit Number 2 Evaluation Information Evaluation Date 11/13/23 Precautions Precautions Pt reported hx of C4-C5, C5-C6 disc replacement-04/13/2021, hypothyroid controlled w/meds & HBP controlled w/2 meds, depression controlled w/meds. Ms relaxor to sleep at night . PT-OP-B Current Condition Start: 11/03/23 19:53 Freq: Status: Active Protocol: Document 11/13/23 09:49 LRN (Rec: 11/13/23 10:38 LRN [id number]) Current Condition History of Current Condition Onset Date 03/2019 Current Complaints LBP & R upper thigh pain, numb in LLE in L4 nerve pattern History of Current Condition Pt reports on September 12 woke from bed and could barely walk . Pt denies injury onset. Pain has decreased over time. MRI- 2 wks ago in [place] (MRI 2022 showed reduction of disc L4-L5), stating her back looked like when she had originally hurt her back in 2018. She states she has always had numbness in front of L lower hoff and into the medial side of L foot. She sleeps on her L>R side at night. Rolls on foam roller a lot. Pt reports being on Meloxicam for the nerve pain, but might change from Gapabentin to meloxicam. Prior Treatments and Tests PT rehab in May and Jun 2019 for LBP, cont'd to run with leg brace. Nerve conduction study at - May or Jun. Treatment Goals Patient/Caregiver Goals .............. Difficulty sleeping, improve sitting (2 hr) to work longer and standing (10-15') for longer periods to cook, do dishes, Mow lawn w/o R LB/R Leg pain. Prior Functional Status Baseline Function- Recreation/Hobbies Pilates for a year now Current Functional Impairments (Reported) Functional Limitations- ADL's Not cooking as much, because can't stand greater than 15' or sit greater than 45-60' for work. Functional Limitations- Recreation/ Must modify her Pilates Hobbies workout regime. 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 Has tried sitting on ball but doesn't help with pain. Has standing desk but doesn't feel good to stand and work. Pilates workout 2x/week. Single mom with 2 teenagers. 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 PT-OP-C Subjective Start: 11/03/23 19:53 Freq: Status: Active Protocol: Document 11/16/23 07:33 LRN (Rec: 11/16/23 08:17 LRN [id number]) OP-PT Subjective Patient Comments Patient Comments Had sharp shooting pain down the L leg standing and walking a couple times. Has tried icing & heating pad, and has tried to change the way she sleeps. PT-OP-J Posture/Palpation/Skin Start: 11/03/23 19:53 Freq: Status: Active Protocol: Document 11/13/23 09:49 LRN (Rec: 11/13/23 10:38 LRN [id number]) Posture Evaluation Position Standing T-Spine Posture Flattened L-Spine Posture Increased Lordosis Comments Posture Comments flat upper T/S dowagers, increased lordosis L4-L5, varus of lower leg. Palpation Assessment Location Low back Palpation Location R lumbar paraspinals and upper gluteals Palpation Findings Soft Tissue Tightness,Muscle Guarding,Tenderness PT-OP-K Range of Motion Start: 11/03/23 19:53 Freq: Status: Active Protocol: Document 11/13/23 09:49 LRN (Rec: 11/13/23 10:38 LRN [id number]) Hip Goniometric Range of Motion Hip Right Passive Testing Position Supine Straight Leg Raise 60 Internal Rotation 20 External Rotation 30 Left Passive Testing Position Supine Straight Leg Raise 75 Internal Rotation 30 External Rotation 60 PT-OP-L Special Tests Start: 11/03/23 19:53 Freq: Status: Active Protocol: Document 11/13/23 09:49 LRN (Rec: 11/13/23 10:38 LRN [id number]) Special Tests Lumbar Spine Special Tests Manual Traction Test Results - Comments Gentle traction applied Straight Leg Raise Test Results + R Comments at 60 deg's increased R LBP Slump Test Results + R side Comments R LBP Vertical Spine Loading Test Results - Comments No change in pain PT-OP-M Strength Start: 11/03/23 19:53 Freq: Status: Active Protocol: Document 11/13/23 09:49 LRN (Rec: 11/13/23 10:38 LRN [id number]) Hip Strength Hip Manual Muscle Testing Right Comments All muscle groups 3/5 limited by R sided LBP Left Comments All muscle groups 3+/5 limited by R sided LBP Knee Strength Knee Manual Muscle Testing Right Flexion (S2) 5 Normal Extension (L3) 5 Normal Left Flexion (S2) 5 Normal Extension (L3) 5 Normal PT-OP-Q Treatments Start: 11/03/23 19:53 Freq: Status: Active Protocol: Document 11/16/23 07:33 LRN (Rec: 11/16/23 08:17 LRN [id number]) Therapeutic Exercises Supine Exercises Hamstring/LE neural glide Supine Exercise Name Using R to demonstrate stretch to L side Side bilateral Reps/Minutes 10 SH f/b 10 ankle pumps - 3 sets Comments Extra time to determ max ab stretch & trng for ex coord- stretch>ankle p's KTC Supine Exercise Name stretch Side bilateral Reps/Minutes 10 SH x 6 Comments Extra time to deterine max ab stretch. TA tightening Supine Exercise Name Neutral Spine with TA tightening Reps/Minutes 10 SH x 10 Comments Extra time needed for training for neutral spine & holding TA w/breathing Prone Exercises Prone press ups Reps/Minutes 10x Comments Cued not to move into pain, extra time to determine max ab mvmt and reps. Manual Therapy Treatment Consent Patient gave verbal consent for manual Yes treatment Manual Traction Lumbar Details L/S with manual lumbar traction Body Position Hooklying Reps/Duration 10' manual + 5' positional stretch Comments Relief of pain with traction Self-Care/Home Management Treatment Education Patient Education Home Exercise Program Activities Self-Care/Home Management Activities Issued & reviewed HEP: Hamstring/LE neural glide, Core stab: TA, TA in neutral spine. PT-OP-T Assessment and Plan Start: 11/03/23 19:53 Freq: Status: Active Protocol: Document 11/16/23 07:33 LRN (Rec: 11/16/23 08:17 LRN [id number]) Physical Therapy Assessment Rehab Potential Rehabilitation Potential Good Evaluation Complexity Number of Personal Factors/Comorbidities 1-2 Number of Body Systems Impaired 4 or More Clinical Presentation at Evaluation Evolving Impairments Impairments Activity Tolerance,Functional Activities,Pain,Posture,ROM, Soft Tissue Mobility,Strength, Transfers Goals Four Impairment Functionally limited in ability to mow lawn due to R LB/R leg pain Short Term Goal (STG) Improve core stabilization strength and pt educated in body mechanics with demonstration of proper form to reduce R LB and R leg pain with mowing movement. STG Duration 6 wks-12/25/23 Senior Living Goal (LTG) Improve function with pt able to lawn mow w/o R LB/R leg pain. LTG Duration 13 wks-02/09/24 Three Impairment Sleep interruption Short Term Goal (STG) Pt will be educated and sleeping with modifications to support of legs and trunk. STG Duration 1 wk-05/22/23 Senior Living Goal (LTG) Pt will be able to sleep 5-7 hrs at night without waking due to pain. LTG Duration 13 wks-02/09/24 Two Impairment Difficulty sitting (<15') and standing (<45-60') Short Term Goal (STG) Pt will be educated and demonstrate knowledge of proper sitting and standing posture. STG Duration 2 wks-11/27/23 Senior Living Goal (LTG) Improve activity tolerance with pt able to improve sitting (2 hrs) to work longer and standing (> 15') for longer periods to cook and wash do dishes. LTG Duration 13 wks-02/09/24 One Impairment Pt lacks appropriate self care HEP. Short Term Goal (STG) Pt will be educated in proper body mechanics for transfers & ADLs. STG Duration 6 wks-12/25/23 Mobile Equipment Operator Goal (LTG) Pt will be independent in an effective self care HEP for core/hip strengthening and mobility ex's. HEP: Hamstring/LE neural glide, Core stab: TA, TA in neutral spine. LTG Duration 13 wks-02/09/24 progressed 11/16/23 Assessment Summary Assessment Pt is a 48 yo female who presents with L1-L2 radicular pain in the Kuldip LB, L anterior thigh, L medial anterior hoff and foot in saphenous nerve distribution. 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 The pt will benefit from skilled physical therapy to improve core stability with her job and functional activities, decrease pain, improve L LE sensation and kuldip hip strength and education in proper positioning, body mechanics, ADL mvmts and home exercise program. Today, pt had some relief of tension in the R hip with manual lumbar traction that did not have lasting pain relief. The pt still appears to be being aggressive with motions of her home stretch/ex program. Several recommendations were made as to what not to do when asked of things she might do. The pt will need much education in self care program over the course of time, as noted in goals for HEP. Physical Therapy Plan Frequency and Duration Frequency of Treatment 2x/Week Duration of treatment (weeks) 13 Plan of Care Start Date 11/13/23 Plan of Care End Date 02/09/24 Therapeutic Interventions Therapeutic Interventions Balance Training,Gait Training ,Home Exercise Program,Joint Mobilizations,Manual Therapy, Neuromuscular Re-education, Self-Care/Home Management,Soft Tissue Mobilization,Taping, Therapeutic Activities, Therapeutic Exercises Modalities Biofeedback,Electric Stimulation,Hot Packs,Traction - Mechanical,Ultrasound Next Visit Focus/Plan Next Note Type Treatment Note Next Visit Plan Next: Assess L/S AROM. Review: sleeping with modifications to support of legs and trunk (STG 3) & educate/pt demonstrate knowledge of proper sitting and standing posture (STG 2). Manual lumbar traction, HEP: assessment of her current stretches Manual: STM with modifications as needed (foam rolling), Neural: saphaneous n assessment/rx. POC: Extension protocol for L4-L5 herniated discs, L1-L2 & L4-5 radiculopathy, L saphenous nerve protection/?n glides, core stabilization, hip stretches/strengthening, review of proper posture and body mechanics. Modalities: MH, mechanical L/S traction if + response to manual traction .
--- NOTE | 2023-11-20 13:37 | PT.OTN ---
Current Diagnoses Other chronic pain (11/20/23) Low back pain, unspecified (11/20/23) Physical Therapy Treatment Note PT-OP-A Visit Information Start: 11/03/23 19:53 Freq: Status: Active Protocol: Document 11/20/23 07:27 LRN (Rec: 11/20/23 08:19 LRN [id number]) Out-Patient Physical Therapy Visit Information Visit Information Visit Type Treatment Note Visit Start Time 07:30 Visit Stop Time 07:11 Visit Number 3 Evaluation Information Evaluation Date 11/13/23 Precautions Precautions Pt reported hx of C4-C5, C5-C6 disc replacement-04/13/2021, hypothyroid controlled w/meds & HBP controlled w/2 meds, depression controlled w/meds. Ms relaxor to sleep at night . PT-OP-B Current Condition Start: 11/03/23 19:53 Freq: Status: Active Protocol: Document 11/13/23 09:49 LRN (Rec: 11/13/23 10:38 LRN [id number]) Current Condition History of Current Condition Onset Date 03/2019 Current Complaints LBP & R upper thigh pain, numb in LLE in L4 nerve pattern History of Current Condition Pt reports on September 12 woke from bed and could barely walk . Pt denies injury onset. Pain has decreased over time. MRI- 2 wks ago in [place] (MRI 2022 showed reduction of disc L4-L5), stating her back looked like when she had originally hurt her back in 2018. She states she has always had numbness in front of L lower hoff and into the medial side of L foot. She sleeps on her L>R side at night. Rolls on foam roller a lot. Pt reports being on Meloxicam for the nerve pain, but might change from Gapabentin to meloxicam. Prior Treatments and Tests PT rehab in May and Jun 2019 for LBP, cont'd to run with leg brace. Nerve conduction study at - May or Jun. Treatment Goals Patient/Caregiver Goals .............. Difficulty sleeping, improve sitting (2 hr) to work longer and standing (10-15') for longer periods to cook, do dishes, Mow lawn w/o R LB/R Leg pain. Prior Functional Status Baseline Function- Recreation/Hobbies Pilates for a year now Current Functional Impairments (Reported) Functional Limitations- ADL's Not cooking as much, because can't stand greater than 15' or sit greater than 45-60' for work. Functional Limitations- Recreation/ Must modify her Pilates Hobbies workout regime. 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 Has tried sitting on ball but doesn't help with pain. Has standing desk but doesn't feel good to stand and work. Pilates workout 2x/week. Single mom with 2 teenagers. 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 PT-OP-C Subjective Start: 11/03/23 19:53 Freq: Status: Active Protocol: Document 11/20/23 07:27 LRN (Rec: 11/20/23 08:19 LRN [id number]) OP-PT Subjective Patient Comments Patient Comments Leg hurts, usually hurts in the morning for an hour. Pain 09/14 PT-OP-J Posture/Palpation/Skin Start: 11/03/23 19:53 Freq: Status: Active Protocol: Document 11/13/23 09:49 LRN (Rec: 11/13/23 10:38 LRN [id number]) Posture Evaluation Position Standing T-Spine Posture Flattened L-Spine Posture Increased Lordosis Comments Posture Comments flat upper T/S dowagers, increased lordosis L4-L5, varus of lower leg. Palpation Assessment Location Low back Palpation Location R lumbar paraspinals and upper gluteals Palpation Findings Soft Tissue Tightness,Muscle Guarding,Tenderness PT-OP-K Range of Motion Start: 11/03/23 19:53 Freq: Status: Active Protocol: Document 11/20/23 07:27 LRN (Rec: 11/20/23 08:19 LRN [id number]) Lumbar Spine Range of Motion Lumbar Spine Active Degrees Testing Position Standing Flexion 25 Extension 5 Rotation Left 20 Rotation Right 10 Lateral Flexion Left 5 Lateral Flexion Right 12 PT-OP-L Special Tests Start: 11/03/23 19:53 Freq: Status: Active Protocol: Document 11/13/23 09:49 LRN (Rec: 11/13/23 10:38 LRN [id number]) Special Tests Lumbar Spine Special Tests Manual Traction Test Results - Comments Gentle traction applied Straight Leg Raise Test Results + R Comments at 60 deg's increased R LBP Slump Test Results + R side Comments R LBP Vertical Spine Loading Test Results - Comments No change in pain PT-OP-M Strength Start: 11/03/23 19:53 Freq: Status: Active Protocol: Document 11/13/23 09:49 LRN (Rec: 11/13/23 10:38 LRN [id number]) Hip Strength Hip Manual Muscle Testing Right Comments All muscle groups 3/5 limited by R sided LBP Left Comments All muscle groups 3+/5 limited by R sided LBP Knee Strength Knee Manual Muscle Testing Right Flexion (S2) 5 Normal Extension (L3) 5 Normal Left Flexion (S2) 5 Normal Extension (L3) 5 Normal PT-OP-Q Treatments Start: 11/03/23 19:53 Freq: Status: Active Protocol: Document 11/20/23 07:27 LRN (Rec: 11/20/23 08:19 LRN [id number]) Therapeutic Exercises Supine Exercises Hamstring/LE neural glide Supine Exercise Name Using R to demonstrate stretch to L side Side bilateral Reps/Minutes 10 SH f/b 10 ankle pumps - 3 sets Comments Extra time to determ max ab stretch & trng for ex coord- stretch>ankle p's KTC Supine Exercise Name R LE stretch Side right Reps/Minutes 10 SH x 6 Comments Extra time to deterine max ab stretch. TA tightening Supine Exercise Name Neutral Spine with TA tightening Reps/Minutes 10 SH x 10 Comments Extra time needed for training for neutral spine & holding TA w/breathing Prone Exercises Prone press ups Reps/Minutes 15x Comments Cued to move w/arms, not back ms. Standing Exercises Trunk AROM Standing Exercise Name L/S flex, ext, kuldip SB, kuldip Rot Side bilateral Reps/Minutes 10' Comments Pt cued to not move into pain. Manual Therapy Treatment Consent Patient gave verbal consent for manual Yes treatment Manual Traction Lumbar Details L/S with manual lumbar traction Body Position Hooklying Reps/Duration 10' manual + 5' positional stretch Comments Relief of pain with traction from 09/14 to 08/15. Self-Care/Home Management Treatment Activities Self-Care/Home Management Activities Issued & reviewed handouts for : Posture sitting for work, Daily activities proper body mechanics and proper sit/stand posture. PT-OP-T Assessment and Plan Start: 11/03/23 19:53 Freq: Status: Active Protocol: Document 11/20/23 07:27 LRN (Rec: 11/20/23 08:19 LRN [id number]) Physical Therapy Assessment Goals Four Impairment Functionally limited in ability to mow lawn due to R LB/R leg pain Short Term Goal (STG) Improve core stabilization strength and pt educated in body mechanics with demonstration of proper form to reduce R LB and R leg pain with mowing movement. STG Duration 6 wks-12/25/23 Gate Cutter Goal (LTG) Improve function with pt able to lawn mow w/o R LB/R leg pain. LTG Duration 13 wks-02/09/24 Three Impairment Sleep interruption Short Term Goal (STG) Pt will be educated and sleeping with modifications to support of legs and trunk. 11/20/23: Educated pt in sleeping posturing with recommendations for LE supports and to side of turnk, and placing pillow in front to prevent her from curling into position. STG Duration 1 wk-05/22/23 (11/20/23: MET GOAL) Prison Goal (LTG) Pt will be able to sleep 5-7 hrs at night without waking due to pain. LTG Duration 13 wks-02/09/24 Two Impairment Difficulty sitting (<15') and standing (<45-60') Short Term Goal (STG) Pt will be educated and demonstrate knowledge of proper sitting and standing posture. 11/20/23: Reviewed handouts for : Posture sitting for work, Daily activities proper body mechanics and proper sit/ stand posture. STG Duration 2 wks-11/27/23 progressed 11/20/23 (pt need to demonstrate) Prison Goal (LTG) Improve activity tolerance with pt able to improve sitting (2 hrs) to work longer and standing (> 15') for longer periods to cook and wash do dishes. LTG Duration 13 wks-02/09/24 One Impairment Pt lacks appropriate self care HEP. Short Term Goal (STG) Pt will be educated in proper body mechanics for transfers & ADLs. STG Duration 6 wks-12/25/23 Prison Goal (LTG) Pt will be independent in an effective self care HEP for core/hip strengthening and mobility ex's. HEP: Hamstring/LE neural glide, Core stab: TA, TA in neutral spine. 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 Today, pt better able to hold TA tight with breathing after review and training. Pain decreased from 5/10 to 4/10 after treatment. Pt is very limited in lumbar AROM, note trunk R SB > L SB. Physical Therapy Plan Frequency and Duration Frequency of Treatment 2x/Week Duration of treatment (weeks) 13 Plan of Care Start Date 11/13/23 Plan of Care End Date 02/09/24 Next Visit Focus/Plan Next Note Type Treatment Note Next Visit Plan Next: Review: Pt to demonstrate knowledge of proper sitting and standing posture (STG 2). Manual lumbar traction, HEP: assessment of her current stretches Manual: STM with modifications as needed (foam rolling), Neural: saphaneous n assessment/rx. POC: Extension protocol for L4-L5 herniated discs, L1-L2 & L4-5 radiculopathy, L saphenous nerve protection/?n glides, core stabilization, hip stretches/strengthening, review of proper posture and body mechanics. Modalities: MH, mechanical L/S traction if + response to manual traction .
--- NOTE | 2023-11-23 11:04 | PT.OTN ---
Current Diagnoses Other chronic pain (11/23/23) Low back pain, unspecified (11/23/23) Physical Therapy Treatment Note PT-OP-A Visit Information Start: 11/03/23 19:53 Freq: Status: Active Protocol: Document 11/23/23 09:48 LRN (Rec: 11/23/23 11:04 LRN [id number]) Out-Patient Physical Therapy Visit Information Visit Information Visit Type Treatment Note Visit Start Time 09:48 Visit Stop Time 10:35 Visit Number 4 Evaluation Information Evaluation Date 11/13/23 Precautions Precautions Pt reported hx of C4-C5, C5-C6 disc replacement-04/13/2021, hypothyroid controlled w/meds & HBP controlled w/2 meds, depression controlled w/meds. Ms relaxor to sleep at night . PT-OP-B Current Condition Start: 11/03/23 19:53 Freq: Status: Active Protocol: Document 11/13/23 09:49 LRN (Rec: 11/13/23 10:38 LRN [id number]) Current Condition History of Current Condition Onset Date 03/2019 Current Complaints LBP & R upper thigh pain, numb in LLE in L4 nerve pattern History of Current Condition Pt reports on September 12 woke from bed and could barely walk . Pt denies injury onset. Pain has decreased over time. MRI- 2 wks ago in [place] (MRI 2022 showed reduction of disc L4-L5), stating her back looked like when she had originally hurt her back in 2018. She states she has always had numbness in front of L lower hoff and into the medial side of L foot. She sleeps on her L>R side at night. Rolls on foam roller a lot. Pt reports being on Meloxicam for the nerve pain, but might change from Gapabentin to meloxicam. Prior Treatments and Tests PT rehab in May and Jun 2019 for LBP, cont'd to run with leg brace. Nerve conduction study at - May or Jun. Treatment Goals Patient/Caregiver Goals .............. Difficulty sleeping, improve sitting (2 hr) to work longer and standing (10-15') for longer periods to cook, do dishes, Mow lawn w/o R LB/R Leg pain. Prior Functional Status Baseline Function- Recreation/Hobbies Pilates for a year now Current Functional Impairments (Reported) Functional Limitations- ADL's Not cooking as much, because can't stand greater than 15' or sit greater than 45-60' for work. Functional Limitations- Recreation/ Must modify her Pilates Hobbies workout regime. 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 Has tried sitting on ball but doesn't help with pain. Has standing desk but doesn't feel good to stand and work. Pilates workout 2x/week. Single mom with 2 teenagers. 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 PT-OP-C Subjective Start: 11/03/23 19:53 Freq: Status: Active Protocol: Document 11/23/23 09:48 LRN (Rec: 11/23/23 11:04 LRN [id number]) OP-PT Subjective Patient Comments Patient Comments Since last visit the R anterior & lateral thigh ached , Last night x 2 rolling over, had sharp shooting pain down her leg. Is doing her HEP and has laid on her back with lower legs on couch to make back feel better. PT-OP-J Posture/Palpation/Skin Start: 11/03/23 19:53 Freq: Status: Active Protocol: Document 11/13/23 09:49 LRN (Rec: 11/13/23 10:38 LRN [id number]) Posture Evaluation Position Standing T-Spine Posture Flattened L-Spine Posture Increased Lordosis Comments Posture Comments flat upper T/S dowagers, increased lordosis L4-L5, varus of lower leg. Palpation Assessment Location Low back Palpation Location R lumbar paraspinals and upper gluteals Palpation Findings Soft Tissue Tightness,Muscle Guarding,Tenderness PT-OP-K Range of Motion Start: 11/03/23 19:53 Freq: Status: Active Protocol: Document 11/20/23 07:27 LRN (Rec: 11/20/23 08:19 LRN [id number]) Lumbar Spine Range of Motion Lumbar Spine Active Degrees Testing Position Standing Flexion 25 Extension 5 Rotation Left 20 Rotation Right 10 Lateral Flexion Left 5 Lateral Flexion Right 12 PT-OP-L Special Tests Start: 11/03/23 19:53 Freq: Status: Active Protocol: Document 11/13/23 09:49 LRN (Rec: 11/13/23 10:38 LRN [id number]) Special Tests Lumbar Spine Special Tests Manual Traction Test Results - Comments Gentle traction applied Straight Leg Raise Test Results + R Comments at 60 deg's increased R LBP Slump Test Results + R side Comments R LBP Vertical Spine Loading Test Results - Comments No change in pain PT-OP-M Strength Start: 11/03/23 19:53 Freq: Status: Active Protocol: Document 11/13/23 09:49 LRN (Rec: 11/13/23 10:38 LRN [id number]) Hip Strength Hip Manual Muscle Testing Right Comments All muscle groups 3/5 limited by R sided LBP Left Comments All muscle groups 3+/5 limited by R sided LBP Knee Strength Knee Manual Muscle Testing Right Flexion (S2) 5 Normal Extension (L3) 5 Normal Left Flexion (S2) 5 Normal Extension (L3) 5 Normal PT-OP-Q Treatments Start: 11/03/23 19:53 Freq: Status: Active Protocol: Document 11/23/23 09:48 LRN (Rec: 11/23/23 11:04 LRN [id number]) Therapeutic Exercises Supine Exercises Lateral Hip stretch Side bilateral Reps/Minutes 10 SH: x 10 R, x 6 L Comments Extra time to determine max ab stretch Piriformis stretch Side bilateral Reps/Minutes 10 SH: x 10 R, x 6 L Comments Extra time to determine max ab stretch Hamstring/LE neural glide Supine Exercise Name Using R to demonstrate stretch to L side Side bilateral Reps/Minutes 10 SH f/b 10 ankle pumps - 3 sets Comments Extra time to determ max ab stretch & trng for ex coord- stretch>ankle p's [facility] Supine Exercise Name R LE stretch is focus. Side bilateral Reps/Minutes 10 SH x 6 Comments Extra time to deterine max ab stretch. Prone Exercises Prone press ups Reps/Minutes 15x Comments Cued to move w/arms, not back ms. Sidelying Exercises T/S rot stretch Sidelying Exercise Name Open book Side bilateral Equipment Used Pillow between knees Reps/Minutes 5 SH x 10 each Comments Cued to lead mvmt with head not arm & watch hand Other Exercises T/S rot stretch Other Exercise Name Thread the Needle Side bilateral Reps/Minutes 5 SH x 10 each Comments Extra time to determine best posturing and max ab stretch Therapeutic Activity Therapeutic Activity Transfers Name Sit<>supine transfer training Reps/Minutes 10' Comments Cuing for log roll method and for breathing through movement . Manual Therapy Treatment Manual Traction Lumbar Details L/S with manual lumbar traction Body Position Hooklying Reps/Duration 10' intermittent manual Comments Relief of pain with traction Self-Care/Home Management Treatment Activities Self-Care/Home Management Activities Issued & reviewed HEP: Piriformis stretch (knne to oop shdr, & ankle over knee> KTC), & Lateral hip stretch; and Handouts for Proper Posture: Powell to Safe Movement; and Proper and ADLs. PT-OP-T Assessment and Plan Start: 11/03/23 19:53 Freq: Status: Active Protocol: Document 11/23/23 09:48 LRN (Rec: 11/23/23 11:04 LRN [id number]) Physical Therapy Assessment Goals Four Impairment Functionally limited in ability to mow lawn due to R LB/R leg pain Short Term Goal (STG) Improve core stabilization strength and pt educated in body mechanics with demonstration of proper form to reduce R LB and R leg pain with mowing movement. STG Duration 6 wks-12/25/23 Metal Room Dental Technician Goal (LTG) Improve function with pt able to lawn mow w/o R LB/R leg pain. LTG Duration 13 wks-02/09/24 Three Impairment Sleep interruption Short Term Goal (STG) Pt will be educated and sleeping with modifications to support of legs and trunk. 11/20/23: Educated pt in sleeping posturing with recommendations for LE supports and to side of turnk, and placing pillow in front to prevent her from curling into position. STG Duration 1 wk-05/22/23 (11/20/23: MET GOAL) Skilled Nursing Goal (LTG) Pt will be able to sleep 5-7 hrs at night without waking due to pain. LTG Duration 13 wks-02/09/24 Two Impairment Difficulty sitting (<15') and standing (<45-60') Short Term Goal (STG) Pt will be educated and demonstrate knowledge of proper sitting and standing posture. 11/20/23: Reviewed handouts for: Posture sitting for work , Daily activities proper body mechanics and proper sit/ stand posture. STG Duration 2 wks-11/27/23 progressed 11/20/23 (pt need to demonstrate) Skilled Nursing Goal (LTG) Improve activity tolerance with pt able to improve sitting (2 hrs) to work longer and standing (> 15') for longer periods to cook and wash do dishes. LTG Duration 13 wks-02/09/24 One Impairment Pt lacks appropriate self care HEP. Short Term Goal (STG) Pt will be educated in proper body mechanics for transfers & ADLs. 11/20/23: (late entry - Pt educated in: Posture sitting for work, Daily activities proper body mechanics and proper sit/stand posture. 11/23/23: Pt educated in proper transfers and reviewed proper body mechanics for ADLs as issued STG Duration 6 wks-12/25/23 (11/23/23: MET GOAL) Skilled Nursing Goal (LTG) Pt will be independent in an effective self care HEP for core/hip strengthening and mobility ex's. HEP: Hamstring/LE neural glide, Core stab: TA, TA in neutral spine. 11/16/23 (late entry): HEP: Hamstring/LE neural glide, Core stab: TA, TA in neutral spine. 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 Today she reports no LBP, but has R lateral/anterior thigh deep ache. She finds relief of ache by placing a small ball under thigh, probably distracting from the L1-L2 radicular pain. Pt had no onset of LE symptoms with open book or thread the needle thoracic mobility ex's. Lumbar traction relieved her back pain. Physical Therapy Plan Frequency and Duration Frequency of Treatment 2x/Week Duration of treatment (weeks) 13 Plan of Care Start Date 11/13/23 Plan of Care End Date 02/09/24 Next Visit Focus/Plan Next Note Type Treatment Note Next Visit Plan Next: Assess pt's knowledge of proper sitting and standing posture (STG 2), and posture training as needed.T ry MH to anterolateral thigh. Manual lumbar traction, improve T/S mobility and core stability. HEP: assessment her current stretches Manual: JMT to T/S & modifications to foam rolling as needed, Neural: saphaneous n assessment/rx. POC: Extension protocol for L4-L5 herniated discs, L1-L2 & L4-5 radiculopathy, L saphenous nerve protection/?n glides, core stabilization, hip stretches/strengthening, review of proper posture and body mechanics.
--- NOTE | 2023-11-27 16:15 | PT.OTN ---
Current Diagnoses Other chronic pain (11/27/23) Low back pain, unspecified (11/27/23) Physical Therapy Treatment Note PT-OP-A Visit Information Start: 11/03/23 19:53 Freq: Status: Active Protocol: Document 11/27/23 07:33 LRN (Rec: 11/27/23 08:16 LRN [id number]) Out-Patient Physical Therapy Visit Information Visit Information Visit Type Treatment Note Visit Start Time 07:34 Visit Stop Time 08:14 Visit Number 5 Evaluation Information Evaluation Date 11/13/23 Precautions Precautions Pt reported hx of C4-C5, C5-C6 disc replacement-04/13/2021, hypothyroid controlled w/meds & HBP controlled w/2 meds, depression controlled w/meds. Ms relaxor to sleep at night . PT-OP-B Current Condition Start: 11/03/23 19:53 Freq: Status: Active Protocol: Document 11/13/23 09:49 LRN (Rec: 11/13/23 10:38 LRN [id number]) Current Condition History of Current Condition Onset Date 03/2019 Current Complaints LBP & R upper thigh pain, numb in LLE in L4 nerve pattern History of Current Condition Pt reports on September 12 woke from bed and could barely walk . Pt denies injury onset. Pain has decreased over time. MRI- 2 wks ago in [place] (MRI 2022 showed reduction of disc L4-L5), stating her back looked like when she had originally hurt her back in 2018. She states she has always had numbness in front of L lower hoff and into the medial side of L foot. She sleeps on her L>R side at night. Rolls on foam roller a lot. Pt reports being on Meloxicam for the nerve pain, but might change from Gapabentin to meloxicam. Prior Treatments and Tests PT rehab in May and Jun 2019 for LBP, cont'd to run with leg brace. Nerve conduction study at - May or Jun. Treatment Goals Patient/Caregiver Goals .............. Difficulty sleeping, improve sitting (2 hr) to work longer and standing (10-15') for longer periods to cook, do dishes, Mow lawn w/o R LB/R Leg pain. Prior Functional Status Baseline Function- Recreation/Hobbies Pilates for a year now Current Functional Impairments (Reported) Functional Limitations- ADL's Not cooking as much, because can't stand greater than 15' or sit greater than 45-60' for work. Functional Limitations- Recreation/ Must modify her Pilates Hobbies workout regime. 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 Has tried sitting on ball but doesn't help with pain. Has standing desk but doesn't feel good to stand and work. Pilates workout 2x/week. Single mom with 2 teenagers. 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 PT-OP-C Subjective Start: 11/03/23 19:53 Freq: Status: Active Protocol: Document 11/27/23 07:33 LRN (Rec: 11/27/23 08:16 LRN [id number]) OP-PT Subjective Patient Comments Patient Comments States the R leg felt better after last session, woke the next day w/o R leg pain. Today, states she went on the boat Monday and got bruised in the R inner thigh. Worse than usual R anterior thigh pain, rated 4/10. PT-OP-J Posture/Palpation/Skin Start: 11/03/23 19:53 Freq: Status: Active Protocol: Document 11/13/23 09:49 LRN (Rec: 11/13/23 10:38 LRN [id number]) Posture Evaluation Position Standing T-Spine Posture Flattened L-Spine Posture Increased Lordosis Comments Posture Comments flat upper T/S dowagers, increased lordosis L4-L5, varus of lower leg. Palpation Assessment Location Low back Palpation Location R lumbar paraspinals and upper gluteals Palpation Findings Soft Tissue Tightness,Muscle Guarding,Tenderness PT-OP-K Range of Motion Start: 11/03/23 19:53 Freq: Status: Active Protocol: Document 11/20/23 07:27 LRN (Rec: 11/20/23 08:19 LRN [id number]) Lumbar Spine Range of Motion Lumbar Spine Active Degrees Testing Position Standing Flexion 25 Extension 5 Rotation Left 20 Rotation Right 10 Lateral Flexion Left 5 Lateral Flexion Right 12 PT-OP-L Special Tests Start: 11/03/23 19:53 Freq: Status: Active Protocol: Document 11/13/23 09:49 LRN (Rec: 11/13/23 10:38 LRN [id number]) Special Tests Lumbar Spine Special Tests Manual Traction Test Results - Comments Gentle traction applied Straight Leg Raise Test Results + R Comments at 60 deg's increased R LBP Slump Test Results + R side Comments R LBP Vertical Spine Loading Test Results - Comments No change in pain PT-OP-M Strength Start: 11/03/23 19:53 Freq: Status: Active Protocol: Document 11/13/23 09:49 LRN (Rec: 11/13/23 10:38 LRN [id number]) Hip Strength Hip Manual Muscle Testing Right Comments All muscle groups 3/5 limited by R sided LBP Left Comments All muscle groups 3+/5 limited by R sided LBP Knee Strength Knee Manual Muscle Testing Right Flexion (S2) 5 Normal Extension (L3) 5 Normal Left Flexion (S2) 5 Normal Extension (L3) 5 Normal PT-OP-Q Treatments Start: 11/03/23 19:53 Freq: Status: Active Protocol: Document 11/27/23 07:33 LRN (Rec: 11/27/23 08:16 LRN [id number]) Therapeutic Exercises Supine Exercises Lateral Hip stretch Side right Reps/Minutes 10 SH: x 10 R, x 6 L Comments Extra time to determine max ab stretch, since R anterior thigh pn Piriformis stretch Side right Reps/Minutes 60 SH: x 1 R Comments Extra time to determine max ab stretch, since R anterior thigh pn TA tightening Supine Exercise Name Neutral Spine (hooklie, legs straight) with TA tightening Reps/Minutes 10 SH (3 breaths) x 10 Comments Cued to hold through 3 breaths . Prone Exercises Prone press ups Reps/Minutes 10x 2 Comments Cued to use arms, less back ms . Sidelying Exercises T/S rot stretch Sidelying Exercise Name Open book Side bilateral Equipment Used Pillow between knees Reps/Minutes 5 SH x 10 each Comments Cued to lead mvmt with head not arm & watch hand Other Exercises T/S rot stretch Other Exercise Name Hold due to incr R thigh pain after fishing on boat. Manual Therapy Treatment Manual Traction Lumbar Details MH/lumbar manual lumbar traction Body Position Hooklying Reps/Duration 10' intermittent manual Comments Relief of pain with traction MH to LB during traction and to anterior R thigh before ex. PT-OP-T Assessment and Plan Start: 11/03/23 19:53 Freq: Status: Active Protocol: Document 11/27/23 07:33 LRN (Rec: 11/27/23 08:16 LRN [id number]) Physical Therapy Assessment Goals Four Impairment Functionally limited in ability to mow lawn due to R LB/R leg pain Short Term Goal (STG) Improve core stabilization strength and pt educated in body mechanics with demonstration of proper form to reduce R LB and R leg pain with mowing movement. STG Duration 6 wks-12/25/23 Jewelry Racker Goal (LTG) Improve function with pt able to lawn mow w/o R LB/R leg pain. LTG Duration 13 wks-02/09/24 Three Impairment Sleep interruption Short Term Goal (STG) Pt will be educated and sleeping with modifications to support of legs and trunk. 11/20/23: Educated pt in sleeping posturing with recommendations for LE supports and to side of turnk, and placing pillow in front to prevent her from curling into position. STG Duration 1 wk-05/22/23 (11/20/23: MET GOAL) Jewelry Racker Goal (LTG) Pt will be able to sleep 5-7 hrs at night without waking due to pain. 11/27/23: Had better sleep, but had to get up early to go fishing, so slept 5 hrs. After boat trip slept 12 hrs but woke a couple times. LTG Duration 13 wks-02/09/24 progressing 11/27/23 Two Impairment Difficulty sitting (<15') and standing (<45-60') Short Term Goal (STG) Pt will be educated and demonstrate knowledge of proper sitting and standing posture. 11/20/23: Reviewed handouts for: Posture sitting for work , Daily activities proper body mechanics and proper sit/ stand posture. STG Duration 2 wks-11/27/23 progressed 11/20/23 (pt need to demonstrate) Jewelry Racker Goal (LTG) Improve activity tolerance with pt able to improve sitting (2 hrs) to work longer and standing (> 15') for longer periods to cook and wash do dishes. LTG Duration 13 wks-02/09/24 One Impairment Pt lacks appropriate self care HEP. Short Term Goal (STG) Pt will be educated in proper body mechanics for transfers & ADLs. 07/15/24: (late entry - Pt educated in: Posture sitting for work, Daily activities proper body mechanics and proper sit/stand posture. 11/23/23: Pt educated in proper transfers and reviewed proper body mechanics for ADLs as issued STG Duration 6 wks-12/25/23 (11/23/23: MET GOAL) Jewelry Racker Goal (LTG) Pt will be independent in an effective self care HEP for core/hip strengthening and mobility ex's. 11/16/23 (late entry): HEP: Hamstring/LE neural glide, Core stab: TA, TA in neutral spine. 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 Today, R anterior thigh pain is worse after boating the weekend; MH to LB was helpful in reducing pain from 4/10 to 3/10 along with manual tx reduced pain to 1/10. No further reducation in pain with MH to anter thigh after tx. Overall pt is sleeping better with 1 night waking w/o R anterior thigh pain. Physical Therapy Plan Frequency and Duration Frequency of Treatment 2x/Week Duration of treatment (weeks) 13 Plan of Care Start Date 11/13/23 Plan of Care End Date 02/09/24 Next Visit Focus/Plan Next Note Type Treatment Note Next Visit Plan Next: Monitor for pt showing knowledge of proper sitting and standing posture (STG 2), and posture training as needed . Manual lumbar traction, improve T/S mobility and progress core stability. HEP: assessment of her current stretches Manual: JMT to T/S & modifications to foam rolling as needed, Neural: saphaneous n assessment/rx. POC: Extension protocol for L4-L5 herniated discs, L1-L2 & L4-5 radiculopathy, L saphenous nerve protection/?n glides, core stabilization, hip stretches/strengthening, review of proper posture and body mechanics.
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
--- NOTE | 2023-12-05 12:08 | PT.OTN ---
Current Diagnoses Other chronic pain (12/05/23) Low back pain, unspecified (12/05/23) Physical Therapy Treatment Note PT-OP-A Visit Information Start: 11/03/23 19:53 Freq: Status: Active Protocol: Document 12/05/23 09:56 AB (Rec: 12/05/23 12:07 AB [id number]) Out-Patient Physical Therapy Visit Information Visit Information Visit Type Treatment Note Visit Start Time 11:22 Visit Stop Time 12:04 Visit Number 7 Number of CORRECTIONAL MAINTENANCE TECHNICIAN Visits 1 Evaluation Information Evaluation Date 11/13/23 Precautions Precautions Pt reported hx of C4-C5, C5-C6 disc replacement-04/13/2021, hypothyroid controlled w/meds & HBP controlled w/2 meds, depression controlled w/meds. Ms relaxor to sleep at night . PT-OP-B Current Condition Start: 11/03/23 19:53 Freq: Status: Active Protocol: Document 11/13/23 09:49 LRN (Rec: 11/13/23 10:38 LRN [id number]) Current Condition History of Current Condition Onset Date 03/2019 Current Complaints LBP & R upper thigh pain, numb in LLE in L4 nerve pattern History of Current Condition Pt reports on September 12 woke from bed and could barely walk . Pt denies injury onset. Pain has decreased over time. MRI- 2 wks ago in [place] (MRI 2022 showed reduction of disc L4-L5), stating her back looked like when she had originally hurt her back in 2019. She states she has always had numbness in front of L lower hoff and into the medial side of L foot. She sleeps on her L>R side at night. Rolls on foam roller a lot. Pt reports being on Meloxicam for the nerve pain, but might change from Gapabentin to meloxicam. Prior Treatments and Tests PT rehab in May and Jun 2019 for LBP, cont'd to run with leg brace. Nerve conduction study at - May or Jun. Treatment Goals Patient/Caregiver Goals .............. Difficulty sleeping, improve sitting (2 hr) to work longer and standing (10-15') for longer periods to cook, do dishes, Mow lawn w/o R LB/R Leg pain. Prior Functional Status Baseline Function- Recreation/Hobbies Pilates for a year now Current Functional Impairments (Reported) Functional Limitations- ADL's Not cooking as much, because can't stand greater than 15' or sit greater than 45-60' for work. Functional Limitations- Recreation/ Must modify her Pilates Hobbies workout regime. 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 Has tried sitting on ball but doesn't help with pain. Has standing desk but doesn't feel good to stand and work. Pilates workout 2x/week. Single mom with 2 teenagers. 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 PT-OP-C Subjective Start: 11/03/23 19:53 Freq: Status: Active Protocol: Document 12/05/23 09:56 AB (Rec: 12/05/23 12:07 AB [id number]) OP-PT Subjective Patient Comments Patient Comments Patient reports she is worse, has pain down the right leg, woke up this way. Patient reports she had 3-4 days with no pain previously to the increased pain today. Patient reports she is going to Pilates stretch, but unable to ab Pilates strengthening due to radiating LE pain with attempt. Patient Reported Progress : PT-OP-J Posture/Palpation/Skin Start: 11/03/23 19:53 Freq: Status: Active Protocol: Document 11/13/23 09:49 LRN (Rec: 11/13/23 10:38 LRN [id number]) Posture Evaluation Position Standing T-Spine Posture Flattened L-Spine Posture Increased Lordosis Comments Posture Comments flat upper T/S dowagers, increased lordosis L4-L5, varus of lower leg. Palpation Assessment Location Low back Palpation Location R lumbar paraspinals and upper gluteals Palpation Findings Soft Tissue Tightness,Muscle Guarding,Tenderness PT-OP-K Range of Motion Start: 11/03/23 19:53 Freq: Status: Active Protocol: Document 11/20/23 07:27 LRN (Rec: 11/20/23 08:19 LRN [id number]) Lumbar Spine Range of Motion Lumbar Spine Active Degrees Testing Position Standing Flexion 25 Extension 5 Rotation Left 20 Rotation Right 10 Lateral Flexion Left 5 Lateral Flexion Right 12 PT-OP-L Special Tests Start: 11/03/23 19:53 Freq: Status: Active Protocol: Document 11/13/23 09:49 LRN (Rec: 11/13/23 10:38 LRN [id number]) Special Tests Lumbar Spine Special Tests Manual Traction Test Results - Comments Gentle traction applied Straight Leg Raise Test Results + R Comments at 60 deg's increased R LBP Slump Test Results + R side Comments R LBP Vertical Spine Loading Test Results - Comments No change in pain PT-OP-M Strength Start: 11/03/23 19:53 Freq: Status: Active Protocol: Document 11/13/23 09:49 LRN (Rec: 11/13/23 10:38 LRN [id number]) Hip Strength Hip Manual Muscle Testing Right Comments All muscle groups 3/5 limited by R sided LBP Left Comments All muscle groups 3+/5 limited by R sided LBP Knee Strength Knee Manual Muscle Testing Right Flexion (S2) 5 Normal Extension (L3) 5 Normal Left Flexion (S2) 5 Normal Extension (L3) 5 Normal PT-OP-Q Treatments Start: 11/03/23 19:53 Freq: Status: Active Protocol: Document 12/05/23 09:56 AB (Rec: 12/05/23 12:07 AB [id number]) Therapeutic Exercises Supine Exercises alt UE flexion on foam roller Supine Exercise Name soft foam roller Side bilateral Reps/Minutes X10 Comments verbal cues Modified Negro stretch edge of mat Supine Exercise Name HEP Side bilateral Reps/Minutes one minute X 2 each side Piriformis stretch Side bilateral Resistance ankle over opposite kn ee Reps/Minutes 60 sec X 2 Hamstring/LE neural glide Side bilateral Reps/Minutes 10 SH f/b 10 ankle pumps - one set then 60 seconds each LE TA tightening Supine Exercise Name bug Reps/Minutes X10 Comments Post modified hip flexor stretch Sidelying Exercises T/S rot stretch Sidelying Exercise Name Open book Side bilateral Reps/Minutes X10 each side Other Exercises Bird dog quadruped Other Exercise Name dowel on back HEP Side bilateral Reps/Minutes X5 T/S rot stretch Other Exercise Name in counter plank position Side bilateral Reps/Minutes X10 each side Comments verbal cues Therapeutic Activity Therapeutic Activity seated positioning Name 1/2 foam roller under ischial tuberosities Comments Patient ed to use towel roll to increase ant pelvic tilt. squats Name to seat height and floor Comments Patient ed use of self tactile cues for hip hinge PT-OP-T Assessment and Plan Start: 11/03/23 19:53 Freq: Status: Active Protocol: Document 12/05/23 09:56 AB (Rec: 12/05/23 12:07 AB [id number]) Physical Therapy Assessment Goals Four Impairment Functionally limited in ability to mow lawn due to R LB/R leg pain Short Term Goal (STG) Improve core stabilization strength and pt educated in body mechanics with demonstration of proper form to reduce R LB and R leg pain with mowing movement. STG Duration 6 wks-12/25/23 Penitentiary Goal (LTG) Improve function with pt able to lawn mow w/o R LB/R leg pain. LTG Duration 13 wks-02/09/24 Three Impairment Sleep interruption Short Term Goal (STG) Pt will be educated and sleeping with modifications to support of legs and trunk. 11/20/23: Educated pt in sleeping posturing with recommendations for LE supports and to side of turnk, and placing pillow in front to prevent her from curling into position. STG Duration 1 wk-05/22/23 (11/20/23: MET GOAL) Commercial Pilot Goal (LTG) Pt will be able to sleep 5-7 hrs at night without waking due to pain. 11/27/23: Had better sleep, but had to get up early to go fishing, so slept 5 hrs. After boat trip slept 12 hrs but woke a couple times. LTG Duration 13 wks-02/09/24 progressing 11/27/23 Two Impairment Difficulty sitting (<15') and standing (<45-60') Short Term Goal (STG) Pt will be educated and demonstrate knowledge of proper sitting and standing posture. 11/20/23: Reviewed handouts for: Posture sitting for work , Daily activities proper body mechanics and proper sit/ stand posture. 11/30/23: GOAL MET: demonstrated has good ergonomic set up high low table and good LS support with self corrections. STG Duration 2 wks-11/27/23 MET GOAL Commercial Pilot Goal (LTG) Improve activity tolerance with pt able to improve sitting (2 hrs) to work longer and standing (> 15') for longer periods to cook and wash do dishes. 11/30/23: Progressing has been stand WBOS that lowers height to relief back and good mechanics about 10 min before back. LTG Duration 13 wks-02/09/24 progressing One Impairment Pt lacks appropriate self care HEP. Short Term Goal (STG) Pt will be educated in proper body mechanics for transfers & ADLs. 11/20/23: (late entry - Pt educated in: Posture sitting for work, Daily activities proper body mechanics and proper sit/stand posture. 11/23/23: Pt educated in proper transfers and reviewed proper body mechanics for ADLs as issued STG Duration 6 wks-12/25/23 (11/23/23: MET GOAL) Penitentiary Goal (LTG) Pt will be independent in an effective self care HEP for core/hip strengthening and mobility ex's. 11/16/23 (late entry): HEP: Hamstring/LE neural glide, Core stab: TA, TA in neutral spine. 11/23/23: HEP: Piriformis stretch (knee to opp shdr, & ankle over knee>KTC), & Lateral hip stretch 12/05/2023 Negro stretch, and bird dog added to HEP LTG Duration 13 wks-02/09/24 progressed 11/23/23 Assessment Summary Assessment Patient reports the dull ache in her leg is gone end of session. Physical Therapy Plan Frequency and Duration Frequency of Treatment 2x/Week Duration of treatment (weeks) 13 Plan of Care Start Date 11/13/23 Plan of Care End Date 02/09/24 Next Visit Focus/Plan Next Note Type Treatment Note Next Visit Plan Next: review bug, Manual lumbar traction, improve T/S mobility and progress core stability. HEP: assessment of her current stretches Manual: JMT to T/S & modifications to foam rolling as needed, Neural: saphaneous n assessment/rx. POC: Extension protocol for L4-L5 herniated discs, L1-L2 & L4-5 radiculopathy, L saphenous nerve protection/?n glides, core stabilization, hip stretches/strengthening, review of proper posture and body mechanics.
--- NOTE | 2023-12-12 16:49 | PT.OTN ---
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 Ms relaxor to sleep at night . PT-OP-B Current Condition Start: 11/03/23 19:53 Freq: Status: Active Protocol: Document 11/13/23 09:49 LRN (Rec: 11/13/23 10:38 LRN [id number]) Current Condition History of Current Condition Onset Date 03/2019 Current Complaints LBP & R upper thigh pain, numb in LLE in L4 nerve pattern History of Current Condition Pt reports on September 12 woke from bed and could barely walk . Pt denies injury onset. Pain has decreased over time. MRI- 2 wks ago in [place] (MRI 2022 showed reduction of disc L4-L5), stating her back looked like when she had originally hurt her back in 2018. She states she has always had numbness in front of L lower hoff and into the medial side of L foot. She sleeps on her L>R side at night. Rolls on foam roller a lot. Pt reports being on Meloxicam for the nerve pain, but might change from Gapabentin to meloxicam. Prior Treatments and Tests PT rehab in May and Jun 2019 for LBP, cont'd to run with leg brace. Nerve conduction study at - May or Jun. Treatment Goals Patient/Caregiver Goals .............. Difficulty sleeping, improve sitting (2 hr) to work longer and standing (10-15') for longer periods to cook, do dishes, Mow lawn w/o R LB/R Leg pain. Prior Functional Status Baseline Function- Recreation/Hobbies Pilates for a year now Current Functional Impairments (Reported) Functional Limitations- ADL's Not cooking as much, because can't stand greater than 15' or sit greater than 45-60' for work. Functional Limitations- Recreation/ Must modify her [employer]obb[employer] workout regime. 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 Has tried sitting on ball but doesn't help with pain. Has standing desk but doesn't feel good to stand and work. Pilates workout 2x/week. Single mom with 2 teenagers. 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 PT-OP-C Subjective Start: 11/03/23 19:53 Freq: Status: Active Protocol: Document 12/12/23 13:40 AB (Rec: 12/12/23 16:45 AB [id number]) OP-PT Subjective Patient Comments Patient Comments Patient reports after swimming 3 days woke up with increased pain, comments today is better. Patient reports she was doing the breast stroke and had more pain after the breast stroke. Patient reports she wakes up 3X a day with pain, sharp twinge down LE 3X a week, but now not every day. Patient reports driving 1.5 hours increases pain. Patient Questionnaires Oswestry Low Back Index Oswestry Score 17 PT-OP-J Posture/Palpation/Skin Start: 11/03/23 19:53 Freq: Status: Active Protocol: Document 11/13/23 09:49 LRN (Rec: 11/13/23 10:38 LRN [id number]) Posture Evaluation Position Standing T-Spine Posture Flattened L-Spine Posture Increased Lordosis Comments Posture Comments flat upper T/S dowagers, increased lordosis L4-L5, varus of lower leg. Palpation Assessment Location Low back Palpation Location R lumbar paraspinals and upper gluteals Palpation Findings Soft Tissue Tightness,Muscle Guarding,Tenderness PT-OP-K Range of Motion Start: 11/03/23 19:53 Freq: Status: Active Protocol: Document 11/20/23 07:27 LRN (Rec: 11/20/23 08:19 LRN [id number]) Lumbar Spine Range of Motion Lumbar Spine Active Degrees Testing Position Standing Flexion 25 Extension 5 Rotation Left 20 Rotation Right 10 Lateral Flexion Left 5 Lateral Flexion Right 12 PT-OP-L Special Tests Start: 11/03/23 19:53 Freq: Status: Active Protocol: Document 11/13/23 09:49 LRN (Rec: 11/13/23 10:38 LRN [id number]) Special Tests Lumbar Spine Special Tests Manual Traction Test Results - Comments Gentle traction applied Straight Leg Raise Test Results + R Comments at 60 deg's increased R LBP Slump Test Results + R side Comments R LBP Vertical Spine Loading Test Results - Comments No change in pain PT-OP-M Strength Start: 11/03/23 19:53 Freq: Status: Active Protocol: Document 11/13/23 09:49 LRN (Rec: 11/13/23 10:38 LRN [id number]) Hip Strength Hip Manual Muscle Testing Right Comments All muscle groups 3/5 limited by R sided LBP Left Comments All muscle groups 3+/5 limited by R sided LBP Knee Strength Knee Manual Muscle Testing Right Flexion (S2) 5 Normal Extension (L3) 5 Normal Left Flexion (S2) 5 Normal Extension (L3) 5 Normal PT-OP-Q Treatments Start: 11/03/23 19:53 Freq: Status: Active Protocol: Document 12/12/23 13:40 AB (Rec: 12/12/23 16:45 AB [id number]) Therapeutic Exercises Supine Exercises Modified Negro stretch edge of mat Supine Exercise Name HEP Side bilateral Reps/Minutes one minute X 2 each side Piriformis stretch Side bilateral Resistance ankle over opposite kn ee Reps/Minutes 60 sec X 2 Hamstring/LE neural glide Side bilateral Reps/Minutes 10 SH f/b 10 ankle pumps - one set then 60 seconds each LE TA tightening Supine Exercise Name bug Reps/Minutes X10 Comments Post modified hip flexor stretch Standing Exercises Pallof press Standing Exercise Name HEP Side bilateral Resistance level 3 band Reps/Minutes X15 X 2 Other Exercises T/S rot stretch Other Exercise Name in counter plank position Side bilateral Reps/Minutes X10 each side Comments verbal cues Manual Therapy Treatment Consent Patient gave verbal consent for manual Yes treatment Soft Tissue Mobilization right LS and glute Mobilization Type Cross-Friction,Rolling, Sustained Pressure Intensity/Depth Moderate Body Position Sidelying Manual Techniques MET Type ball squeeze, left LE thrust, bridge, knee to chest Reps/Duration 6X 6 sec ball squeeze, thrust X 1 bridge, X1KTC 6 breaths PT-OP-T Assessment and Plan Start: 11/03/23 19:53 Freq: Status: Active Protocol: Document 12/12/23 13:40 AB (Rec: 12/12/23 16:45 AB [id number]) Physical Therapy Assessment Goals Four Impairment Functionally limited in ability to mow lawn due to R LB/R leg pain Short Term Goal (STG) Improve core stabilization strength and pt educated in body mechanics with demonstration of proper form to reduce R LB and R leg pain with mowing movement. STG Duration 6 wks-12/25/23 [employer] Goal (LTG) Improve function with pt able to lawn mow w/o R LB/R leg pain. LTG Duration 13 wks-02/09/24 Three Impairment Sleep interruption Short Term Goal (STG) Pt will be educated and sleeping with modifications to support of legs and trunk. 11/20/23: Educated pt in sleeping posturing with recommendations for LE supports and to side of turnk, and placing pillow in front to prevent her from curling into position. STG Duration 1 wk-05/22/23 (11/20/23: MET GOAL) Mcfp Goal (LTG) Pt will be able to sleep 5-7 hrs at night without waking due to pain. 11/27/23: Had better sleep, but had to get up early to go fishing, so slept 5 hrs. After boat trip slept 12 hrs but woke a couple times. LTG Duration 13 wks-02/09/24 progressing 11/27/23 Two Impairment Difficulty sitting (<15') and standing (<45-60') Short Term Goal (STG) Pt will be educated and demonstrate knowledge of proper sitting and standing posture. 11/20/23: Reviewed handouts for: Posture sitting for work , Daily activities proper body mechanics and proper sit/ stand posture. 11/30/23: GOAL MET: demonstrated has good ergonomic set up high low table and good LS support with self corrections. STG Duration 2 wks-11/27/23 MET GOAL [employer] Goal (LTG) Improve activity tolerance with pt able to improve sitting (2 hrs) to work longer and standing (> 15') for longer periods to cook and wash do dishes. 11/30/23: Progressing has been stand WBOS that lowers height to relief back and good mechanics about 10 min before back. LTG Duration 13 wks-02/09/24 progressing One Impairment Pt lacks appropriate self care HEP. Short Term Goal (STG) Pt will be educated in proper body mechanics for transfers & ADLs. 11/20/23: (late entry - Pt educated in: Posture sitting for work, Daily activities proper body mechanics and proper sit/stand posture. 11/23/23: Pt educated in proper transfers and reviewed proper body mechanics for ADLs as issued STG Duration 6 wks-12/25/23 (11/23/23: MET GOAL) Mcfp Goal (LTG) Pt will be independent in an effective self care HEP for core/hip strengthening and mobility ex's. 11/16/23 (late entry): HEP: Hamstring/LE neural glide, Core stab: TA, TA in neutral spine. 11/23/23: HEP: Piriformis stretch (knee to opp shdr, & ankle over knee>KTC), & Lateral hip stretch 12/05/2023 Negro stretch, and bird dog added to HEP LTG Duration 13 wks-02/09/24 progressed 11/23/23 Assessment Summary Assessment Patient reports feeling good end of session. Good ab to Pallof press. Tug performed this session with a score of 8 .14 seconds. Physical Therapy Plan Frequency and Duration Frequency of Treatment 2x/Week Duration of treatment (weeks) 13 Plan of Care Start Date 11/13/23 Plan of Care End Date 02/09/24 Next Visit Focus/Plan Next Note Type Treatment Note Next Visit Plan Next: Manual lumbar traction, improve T/S mobility and progress core stability. HEP: assessment of her current stretches Manual: JMT to T/S & modifications to foam rolling as needed, Neural: saphaneous n assessment/rx. POC: Extension protocol for L4-L5 herniated discs, L1-L2 & L4-5 radiculopathy, L saphenous nerve protection/, assess ab to Pallof press/ core stabilization, hip stretches/strengthening/squat with band, review of proper posture and body mechanics.
--- NOTE | 2023-12-29 17:32 | PT.OTN ---
Current Diagnoses Other chronic pain (12/29/23) Low back pain, unspecified (12/29/23) Physical Therapy Treatment Note PT-OP-A Visit Information Start: 11/03/23 19:53 Freq: Status: Active Protocol: Document 12/29/23 07:33 LRN (Rec: 12/29/23 08:17 LRN [id number]) Out-Patient Physical Therapy Visit Information Visit Information Visit Type Treatment Note Visit Start Time 07:33 Visit Stop Time 08:13 Visit Number 9 Evaluation Information Evaluation Date 11/13/23 Precautions Precautions Pt reported hx of C4-C5, C5-C6 disc replacement-04/13/2021, hypothyroid controlled w/meds & HBP controlled w/2 meds, depression controlled w/meds. Ms relaxor to sleep at night . PT-OP-B Current Condition Start: 11/03/23 19:53 Freq: Status: Active Protocol: Document 11/13/23 09:49 LRN (Rec: 11/13/23 10:38 LRN [id number]) Current Condition History of Current Condition Onset Date 03/2019 Current Complaints LBP & R upper thigh pain, numb in LLE in L4 nerve pattern History of Current Condition Pt reports on September 12 woke from bed and could barely walk . Pt denies injury onset. Pain has decreased over time. MRI- 2 wks ago in [place] (MRI 2022 showed reduction of disc L4-L5), stating her back looked like when she had originally hurt her back in 2018. She states she has always had numbness in front of L lower hoff and into the medial side of L foot. She sleeps on her L>R side at night. Rolls on foam roller a lot. Pt reports being on Meloxicam for the nerve pain, but might change from Gapabentin to meloxicam. Prior Treatments and Tests PT rehab in May and Jun 2019 for LBP, cont'd to run with leg brace. Nerve conduction study at - May or Jun. Treatment Goals Patient/Caregiver Goals .............. Difficulty sleeping, improve sitting (2 hr) to work longer and standing (10-15') for longer periods to cook, do dishes, Mow lawn w/o R LB/R Leg pain. Prior Functional Status Baseline Function- Recreation/Hobbies Pilates for a year now Current Functional Impairments (Reported) Functional Limitations- ADL's Not cooking as much, because can't stand greater than 15' or sit greater than 45-60' for work. Functional Limitations- Recreation/ Must modify her Pilates Hobbies workout regime. 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 Has tried sitting on ball but doesn't help with pain. Has standing desk but doesn't feel good to stand and work. Pilates workout 2x/week. Single mom with 2 teenagers. Does laundry at [employer] mat or at [employer] complex. PT-OP-C Subjective Start: 11/03/23 19:53 Freq: Status: Active Protocol: Document 12/29/23 07:33 LRN (Rec: 12/29/23 08:17 LRN [id number]) OP-PT Subjective Patient Comments Patient Comments States she has been having pain in the R anterior hip, stopped Meloxicam 3 wks ago. Pain rated to start 4/10 and is now 2/10 and a dull ache. PT-OP-J Posture/Palpation/Skin Start: 11/03/23 19:53 Freq: Status: Active Protocol: Document 11/13/23 09:49 LRN (Rec: 11/13/23 10:38 LRN [id number]) Posture Evaluation Position Standing T-Spine Posture Flattened L-Spine Posture Increased Lordosis Comments Posture Comments flat upper T/S dowagers, increased lordosis L4-L5, varus of lower leg. Palpation Assessment Location Low back Palpation Location R lumbar paraspinals and upper gluteals Palpation Findings Soft Tissue Tightness,Muscle Guarding,Tenderness PT-OP-K Range of Motion Start: 11/03/23 19:53 Freq: Status: Active Protocol: Document 11/20/23 07:27 LRN (Rec: 11/20/23 08:19 LRN [id number]) Lumbar Spine Range of Motion Lumbar Spine Active Degrees Testing Position Standing Flexion 25 Extension 5 Rotation Left 20 Rotation Right 10 Lateral Flexion Left 5 Lateral Flexion Right 12 PT-OP-L Special Tests Start: 11/03/23 19:53 Freq: Status: Active Protocol: Document 11/13/23 09:49 LRN (Rec: 11/13/23 10:38 LRN [id number]) Special Tests Lumbar Spine Special Tests Manual Traction Test Results - Comments Gentle traction applied Straight Leg Raise Test Results + R Comments at 60 deg's increased R LBP Slump Test Results + R side Comments R LBP Vertical Spine Loading Test Results - Comments No change in pain PT-OP-M Strength Start: 11/03/23 19:53 Freq: Status: Active Protocol: Document 11/13/23 09:49 LRN (Rec: 11/13/23 10:38 LRN [id number]) Hip Strength Hip Manual Muscle Testing Right Comments All muscle groups 3/5 limited by R sided LBP Left Comments All muscle groups 3+/5 limited by R sided LBP Knee Strength Knee Manual Muscle Testing Right Flexion (S2) 5 Normal Extension (L3) 5 Normal Left Flexion (S2) 5 Normal Extension (L3) 5 Normal PT-OP-Q Treatments Start: 11/03/23 19:53 Freq: Status: Active Protocol: Document 12/29/23 07:33 LRN (Rec: 12/29/23 08:17 LRN [id number]) Therapeutic Exercises Supine Exercises Modified Negro stretch edge of mat Supine Exercise Name HEP Side bilateral Reps/Minutes one minute X 2 each side Piriformis stretch Side bilateral Resistance ankle over opposite kn ee Reps/Minutes 60 sec X 2 Hamstring/LE neural glide Side bilateral Reps/Minutes 10 SH f/b 10 ankle pumps - one set then 60 seconds each LE TA tightening Supine Exercise Name bug Reps/Minutes X10 Comments Post modified hip flexor stretch, cued to keep arch in back Prone Exercises Prone press ups Prone Exercise Name SHANTA Reps/Minutes 10x Comments cued to use arms vs trunk extensors. Sidelying Exercises T/S rot stretch Sidelying Exercise Name Open book Side bilateral Reps/Minutes X10 each side Standing Exercises Pallof press Standing Exercise Name HEP Side bilateral Resistance level 3 band Reps/Minutes X15 X 2 Comments Cued for proper mvmt and for mild PPT. Manual Therapy Treatment Manual Traction Lumbar Details Manual lumbar interminttent tx Body Position Hooklying Reps/Duration 10' Comments + response with pain decreased from 4 to 2/10. Self-Care/Home Management Treatment Activities Self-Care/Home Management Activities Reviewed with pt proper postioninog/body mechanids for lawn mowing to minimize stress on low back. PT-OP-T Assessment and Plan Start: 11/03/23 19:53 Freq: Status: Active Protocol: Document 12/29/23 07:33 LRN (Rec: 12/29/23 08:17 LRN [id number]) Physical Therapy Assessment Goals Four Impairment Functionally limited in ability to mow lawn due to R LB/R leg pain Short Term Goal (STG) Improve core stabilization strength and pt educated in body mechanics with demonstration of proper form to reduce R LB and R leg pain with mowing movement. 12/29/23: Reviewed proper body mechanics with pt demonstrating proper form for mowing to reduce R LB/RLE with the activity. STG Duration 6 wks-12/25/23 (12/29/23: MET GOAL) Retirement Goal (LTG) Improve function with pt able to lawn mow w/o R LB/R leg pain. 12/29/23: Pt reporting being able to mow 15' w/o increased R LB/LE pain. Pt noting summer is over and not having to mow. LTG Duration 13 wks-02/09/24 (12/29/23: Currently goal met, no further mowing needed) Three Impairment Sleep interruption Short Term Goal (STG) Pt will be educated and sleeping with modifications to support of legs and trunk. 11/20/23: Educated pt in sleeping posturing with recommendations for LE supports and to side of turnk, and placing pillow in front to prevent her from curling into position. STG Duration 1 wk-05/22/23 (11/20/23: MET GOAL) Film Flat Inspector Goal (LTG) Pt will be able to sleep 5-7 hrs at night without waking due to pain. 11/27/23: Had better sleep, but had to get up early to go fishing, so slept 5 hrs. After boat trip slept 12 hrs but woke a couple times. LTG Duration 13 wks-02/09/24 progressing 11/27/23 Two Impairment Difficulty sitting (<15') and standing (<45-60') Short Term Goal (STG) Pt will be educated and demonstrate knowledge of proper sitting and standing posture. 11/20/23: Reviewed handouts for: Posture sitting for work , Daily activities proper body mechanics and proper sit/ stand posture. 11/30/23: GOAL MET: demonstrated has good ergonomic set up high low table and good LS support with self corrections. STG Duration 2 wks-11/27/23 (MET GOAL ) Retirement Goal (LTG) Improve activity tolerance with pt able to improve sitting (2 hrs) to work longer and standing (> 15') for longer periods to cook and wash do dishes. 11/30/23: Progressing has been stand WBOS that lowers height to relief back and good mechanics about 10 min before back. 12/29/23: Can sit for 45' and is less fidgety. LTG Duration 13 wks-02/09/24 progressing 12/29/23 One Impairment Pt lacks appropriate self care HEP. Short Term Goal (STG) Pt will be educated in proper body mechanics for transfers & ADLs. 11/20/23: (late entry - Pt educated in: Posture sitting for work, Daily activities proper body mechanics and proper sit/stand posture. 11/23/23: Pt educated in proper transfers and reviewed proper body mechanics for ADLs as issued STG Duration 6 wks-12/25/23 (11/23/23: MET GOAL) Retirement Goal (LTG) Pt will be independent in an effective self care HEP for core/hip strengthening and mobility ex's. 11/16/23 (late entry): HEP: Hamstring/LE neural glide, Core stab: TA, TA in neutral spine. 11/23/23: HEP: Piriformis stretch (knee to opp shdr, & ankle over knee>KTC), & Lateral hip stretch 12/05/2023 Negro stretch, and bird dog added to HEP LTG Duration 13 wks-02/09/24 progressed 11/23/23 Assessment Summary Assessment 48 yo female with L1-L2 radicular pain in the Kuldip LB ( L anterior thigh, L medial anterior hoff and foot in saphenous nerve distribution), LE & L/S postural changes. Today pt reports increased R anterior hip pain, but showed + response to manual L/S tx with reduction of pain from 4/ 10 to 2/10. Trunk rot increases R SIJ discomfort. Physical Therapy Plan Frequency and Duration Frequency of Treatment 2x/Week Duration of treatment (weeks) 13 Plan of Care Start Date 11/13/23 Plan of Care End Date 02/09/24 Next Visit Focus/Plan Next Note Type Treatment Note Next Visit Plan Manual lumbar traction as needed to reduce radicular pain; improve T/S mobility and progress core stability. HEP: assessment of her current stretches Pt has 1 more visit approved by insurance; therefore reassess for further therapy ( [employer] form to be completed). Manual: JMT to T/S & modifications to foam rolling as needed, Neural: saphaneous n assessment/rx. POC: Extension protocol for L4-L5 herniated discs, L1-L2 & L4-5 radiculopathy, L saphenous nerve protection/, assess ab to Pallof press/ core stabilization, hip stretches/strengthening/squat with band, review of proper posture and body mechanics.
--- NOTE | 2024-01-01 16:23 | PT-OP ANOTE ---
Pt cx due to sickness.
--- NOTE | 2024-01-05 16:42 | PT.OTN ---
Current Diagnoses Other chronic pain (01/05/24) Low back pain, unspecified (01/05/24) Physical Therapy Treatment Note PT-OP-A Visit Information Start: 11/03/23 19:53 Freq: Status: Active Protocol: Document 01/05/24 09:56 LRN (Rec: 01/05/24 10:35 LRN [id number]) Out-Patient Physical Therapy Visit Information Visit Information Visit Type Progress Note Visit Start Time 09:56 Visit Stop Time 10:30 Visit Number 10 Evaluation Information Evaluation Date 11/13/23 Precautions Precautions Pt reported hx of C4-C5, C5-C6 disc replacement-04/13/2021, hypothyroid controlled w/meds & HBP controlled w/2 meds, depression controlled w/meds. Ms relaxor to sleep at night . PT-OP-B Current Condition Start: 11/03/23 19:53 Freq: Status: Active Protocol: Document 11/13/23 09:49 LRN (Rec: 11/13/23 10:38 LRN [id number]) Current Condition History of Current Condition Onset Date 03/2019 Current Complaints LBP & R upper thigh pain, numb in LLE in L4 nerve pattern History of Current Condition Pt reports on September 12 woke from bed and could barely walk . Pt denies injury onset. Pain has decreased over time. MRI- 2 wks ago in [place] (MRI 2022 showed reduction of disc L4-L5), stating her back looked like when she had originally hurt her back in 2018. She states she has always had numbness in front of L lower hoff and into the medial side of L foot. She sleeps on her L>R side at night. Rolls on foam roller a lot. Pt reports being on Meloxicam for the nerve pain, but might change from Gapabentin to meloxicam. Prior Treatments and Tests PT rehab in May and Jun 2019 for LBP, cont'd to run with leg brace. Nerve conduction study at - May or Jun. Treatment Goals Patient/Caregiver Goals .............. Difficulty sleeping, improve sitting (2 hr) to work longer and standing (10-15') for longer periods to cook, do dishes, Mow lawn w/o R LB/R Leg pain. Prior Functional Status Baseline Function- Recreation/Hobbies Pilates for a year now Current Functional Impairments (Reported) Functional Limitations- ADL's Not cooking as much, because can't stand greater than 15' or sit greater than 45-60' for work. Functional Limitations- Recreation/ Must modify her Pilates Hobbies workout regime. 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 Has tried sitting on ball but doesn't help with pain. Has standing desk but doesn't feel good to stand and work. Pilates workout 2x/week. Single mom with 2 teenagers. 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 PT-OP-C Subjective Start: 11/03/23 19:53 Freq: Status: Active Protocol: Document 01/05/24 09:56 LRN (Rec: 01/05/24 10:35 LRN [id number]) OP-PT Subjective Patient Comments Patient Comments Has been sitting a lot because son is learning to drive; therefore her back is hurting her more. Patient Questionnaires Oswestry Low Back Index Oswestry Score 17 Oswestry Impairment 1 to 19% Impaired (Score 1-19) OP-PT Pain Assessment Pain Assessment Grid Paper Pain Assessment Grid Completed Yes Location Anterior R thigh Pain Location Details Anterior R thigh Intensity 3 Scale Used Numeric (0 - 10) Description Aching,Sharp,Shooting Description- Other Occurs when bending over or walking down stairs. Frequency Intermittent Pain Alleviating Factors Heat Other Pain Alleviating Factors Stretching Low back Pain Location Details R low back Intensity 5 Scale Used Numeric (0 - 10) Description Aching,Sharp,Shooting Description- Other Shoots into toes if bending over or walking too much. Frequency Intermittent Pain Alleviating Factors Cold,Heat Other Pain Alleviating Factors Stretching PT-OP-J Posture/Palpation/Skin Start: 11/03/23 19:53 Freq: Status: Active Protocol: Document 11/13/23 09:49 LRN (Rec: 11/13/23 10:38 LRN [id number]) Posture Evaluation Position Standing T-Spine Posture Flattened L-Spine Posture Increased Lordosis Comments Posture Comments flat upper T/S dowagers, increased lordosis L4-L5, varus of lower leg. Palpation Assessment Location Low back Palpation Location R lumbar paraspinals and upper gluteals Palpation Findings Soft Tissue Tightness,Muscle Guarding,Tenderness PT-OP-K Range of Motion Start: 11/03/23 19:53 Freq: Status: Active Protocol: Document 11/20/23 07:27 LRN (Rec: 11/20/23 08:19 LRN [id number]) Lumbar Spine Range of Motion Lumbar Spine Active Degrees Testing Position Standing Flexion 25 Extension 5 Rotation Left 20 Rotation Right 10 Lateral Flexion Left 5 Lateral Flexion Right 12 PT-OP-L Special Tests Start: 11/03/23 19:53 Freq: Status: Active Protocol: Document 11/13/23 09:49 LRN (Rec: 11/13/23 10:38 LRN [id number]) Special Tests Lumbar Spine Special Tests Manual Traction Test Results - Comments Gentle traction applied Straight Leg Raise Test Results + R Comments at 60 deg's increased R LBP Slump Test Results + R side Comments R LBP Vertical Spine Loading Test Results - Comments No change in pain PT-OP-M Strength Start: 11/03/23 19:53 Freq: Status: Active Protocol: Document 11/13/23 09:49 LRN (Rec: 11/13/23 10:38 LRN [id number]) Hip Strength Hip Manual Muscle Testing Right Comments All muscle groups 3/5 limited by R sided LBP Left Comments All muscle groups 3+/5 limited by R sided LBP Knee Strength Knee Manual Muscle Testing Right Flexion (S2) 5 Normal Extension (L3) 5 Normal Left Flexion (S2) 5 Normal Extension (L3) 5 Normal PT-OP-Q Treatments Start: 11/03/23 19:53 Freq: Status: Active Protocol: Document 01/05/24 09:56 LRN (Rec: 01/05/24 10:35 LRN [id number]) Therapeutic Exercises Supine Exercises Modified Negro stretch edge of mat Supine Exercise Name HEP Side bilateral Reps/Minutes one minute X 2 each side Lateral Hip stretch Supine Exercise Name Lateral Hip stretch Side bilateral Reps/Minutes 60 sec x 2 Piriformis stretch Side bilateral Resistance ankle over opposite kn ee Reps/Minutes 60 sec X 2 Hamstring/LE neural glide Side bilateral Reps/Minutes 10 SH f/b 10 ankle pumps - one set then 60 seconds each LE KTC Supine Exercise Name KTC Side bilateral Reps/Minutes 2' Sidelying Exercises T/S rot stretch Sidelying Exercise Name Open book Side bilateral Reps/Minutes X10 each side Self-Care/Home Management Treatment Education Other Education Reviewed POC, and discussed ongoing treatment and pt compliance to modifying activities to prevent flare ups, pt agreeable. PT-OP-T Assessment and Plan Start: 11/03/23 19:53 Freq: Status: Active Protocol: Document 01/05/24 09:56 LRN (Rec: 01/05/24 10:35 LRN [id number]) Physical Therapy Assessment Rehab Potential Rehabilitation Potential Good Evaluation Complexity Number of Personal Factors/Comorbidities 1-2 Number of Body Systems Impaired 4 or More Clinical Presentation at Evaluation Evolving Impairments Impairments Activity Tolerance,Functional Activities,Pain,Posture,ROM, Soft Tissue Mobility,Strength, Transfers Goals Four Impairment Functionally limited in ability to mow lawn due to R LB/R leg pain Short Term Goal (STG) Improve core stabilization strength and pt educated in body mechanics with demonstration of proper form to reduce R LB and R leg pain with mowing movement. 12/29/23: Reviewed proper body mechanics with pt demonstrating proper form for mowing to reduce R LB/RLE with the activity. STG Duration 6 wks-12/25/23 (12/29/23: MET GOAL) Compound Finisher Goal (LTG) Improve function with pt able to lawn mow w/o R LB/R leg pain. 12/29/23: Pt reporting being able to mow 15' w/o increased R LB/LE pain. Pt noting summer is over and not having to mow. LTG Duration 13 wks-02/09/24 (12/29/23: Currently goal met, no further mowing needed) Three Impairment Sleep interruption Short Term Goal (STG) Pt will be educated and sleeping with modifications to support of legs and trunk. 11/20/23: Educated pt in sleeping posturing with recommendations for LE supports and to side of turnk, and placing pillow in front to prevent her from curling into position. STG Duration 1 wk-05/22/23 (11/20/23: MET GOAL) Custodial Goal (LTG) Pt will be able to sleep 5-7 hrs at night without waking due to pain. 11/27/23: Had better sleep, but had to get up early to go fishing, so slept 5 hrs. After boat trip slept 12 hrs but woke a couple times. LTG Duration 13 wks-02/09/24 progressing 11/27/23 Two Impairment Difficulty sitting (<15') and standing (<45-60') Short Term Goal (STG) Pt will be educated and demonstrate knowledge of proper sitting and standing posture. 11/20/23: Reviewed handouts for: Posture sitting for work , Daily activities proper body mechanics and proper sit/ stand posture. 11/30/23: GOAL MET: demonstrated has good ergonomic set up high low table and good LS support with self corrections. STG Duration 2 wks-11/27/23 (MET GOAL ) Custodial Goal (LTG) Improve activity tolerance with pt able to improve sitting (2 hrs) to work longer and standing (> 15') for longer periods to cook and wash do dishes. 11/30/23: Progressing has been stand WBOS that lowers height to relief back and good mechanics about 10 min before back. 12/29/23: Can sit for 45' and is less fidgety. LTG Duration 13 wks-02/09/24 progressing 12/29/23 One Impairment Pt lacks appropriate self care HEP. Short Term Goal (STG) Pt will be educated in proper body mechanics for transfers & ADLs. 11/20/23: (late entry - Pt educated in: Posture sitting for work, Daily activities proper body mechanics and proper sit/stand posture. 11/23/23: Pt educated in proper transfers and reviewed proper body mechanics for ADLs as issued STG Duration 6 wks-12/25/23 (11/23/23: MET GOAL) Custodial Goal (LTG) Pt will be independent in an effective self care HEP for core/hip strengthening and mobility ex's. 11/16/23 (late entry): HEP: Hamstring/LE neural glide, Core stab: TA, TA in neutral spine. 11/23/23: HEP: Piriformis stretch (knee to opp shdr, & ankle over knee>KTC), & Lateral hip stretch 12/05/2023 Negro stretch, and bird dog added to HEP LTG Duration 13 wks-02/09/24 progressed 11/23/23 Assessment Summary Assessment Pt is a a 48 yo female with L1 -L2 radicular pain in the Kuldip LB (L anterior thigh, L medial anterior hoff and foot in saphenous nerve distribution), LE & L/S postural changes. The pt has been for 10 visits in 7 weeks with missed appts due to illness and scheduling difficulties. The pt has had a couple times of L LE pain relief, resulting in return to activities and onset of flare ups. She is currently experiencing a flare up due to increased sitting form social demand of her trying to teach her son to drive. After discussion of her plan of care and rehab program, the pt is agreeable to being more diligent to minimize excessive stress to her low back to help relieve her LLE pain onset from her most recent flare up. The pt's functional score and pain complaints during her flare up shows minimal improvement, but she has been able to achieve no pain in her LLE and is expected to be able to achieve being painfree again with further physical therapy; therefore it is recommended that the pt continue with skilled physical therapy to help pt return to her prior level of painfree LLE and slow progression towards return to activity with pt being aware of her limitations. Physical Therapy Plan Frequency and Duration Frequency of Treatment 2x/Week Duration of treatment (weeks) 13 Plan of Care Start Date 11/13/23 Plan of Care End Date 02/09/24 Therapeutic Interventions Therapeutic Interventions Balance Training,Gait Training ,Home Exercise Program,Joint Mobilizations,Manual Therapy, Neuromuscular Re-education, Self-Care/Home Management,Soft Tissue Mobilization,Taping, Therapeutic Activities, Therapeutic Exercises Modalities Electric Stimulation,Hot Packs ,Ultrasound Next Visit Focus/Plan Next Note Type Treatment Note Next Visit Plan DC from PT if no further visits approved by insurance per pt request. If pt is approved for more PT visits, progress with HEP of core stabilization and improve T/S mobility and progress core stability. Cont with Manual lumbar traction as needed to reduce radicular pain. Assess ab to Pallof press/ core stabilization, hip stretches/strengthening/squat with band, review of proper posture and body mechanics. Manual: JMT to T/S & modifications to foam rolling as needed, Neural: saphaneous n assessment/rx. POC: Extension protocol for L4-L5 herniated discs, L1-L2 & L4-5 radiculopathy, L saphenous nerve protection.
--- NOTE | 2024-01-17 10:27 | PT.OTN ---
Current Diagnoses Other chronic pain (01/17/24) Low back pain, unspecified (01/17/24) Physical Therapy Treatment Note PT-OP-A Visit Information Start: 11/03/23 19:53 Freq: Status: Active Protocol: Document 01/17/24 09:47 SP (Rec: 01/17/24 10:31 SP [id number]) Out-Patient Physical Therapy Visit Information Visit Information Visit Type Treatment Note Visit Note 06/17 after PN Visit Start Time 09:47 Visit Stop Time 10:27 Visit Number 11 Number of LYFT DRIVER Visits 1 Evaluation Information Evaluation Date 11/13/23 Precautions Precautions Pt reported hx of C4-C5, C5-C6 disc replacement-04/13/2021, hypothyroid controlled w/meds & HBP controlled w/2 meds, depression controlled w/meds. Ms relaxor to sleep at night . PT-OP-B Current Condition Start: 11/03/23 19:53 Freq: Status: Active Protocol: Document 11/13/23 09:49 LRN (Rec: 11/13/23 10:38 LRN [id number]) Current Condition History of Current Condition Onset Date 03/2019 Current Complaints LBP & R upper thigh pain, numb in LLE in L4 nerve pattern History of Current Condition Pt reports on September 12 woke from bed and could barely walk . Pt denies injury onset. Pain has decreased over time. MRI- 2 wks ago in [place] (MRI 2022 showed reduction of disc L4-L5), stating her back looked like when she had originally hurt her back in 2018. She states she has always had numbness in front of L lower hoff and into the medial side of L foot. She sleeps on her L>R side at night. Rolls on foam roller a lot. Pt reports being on Meloxicam for the nerve pain, but might change from Gapabentin to meloxicam. Prior Treatments and Tests PT rehab in May and Jun 2019 for LBP, cont'd to run with leg brace. Nerve conduction study at - May or Jun. Treatment Goals Patient/Caregiver Goals .............. Difficulty sleeping, improve sitting (2 hr) to work longer and standing (10-15') for longer periods to cook, do dishes, Mow lawn w/o R LB/R Leg pain. Prior Functional Status Baseline Function- Recreation/Hobbies Pilates for a year now Current Functional Impairments (Reported) Functional Limitations- ADL's Not cooking as much, because can't stand greater than 15' or sit greater than 45-60' for work. Functional Limitations- Recreation/ Must modify her Pilates Hobbies workout regime. 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 Has tried sitting on ball but doesn't help with pain. Has standing desk but doesn't feel good to stand and work. Pilates workout 2x/week. Single mom with 2 teenagers. 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 PT-OP-C Subjective Start: 11/03/23 19:53 Freq: Status: Active Protocol: Document 01/17/24 09:47 SP (Rec: 01/17/24 10:31 SP [id number]) OP-PT Subjective Patient Comments Patient Comments Pt reports if does her HEP and definitely helps relief. 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 SHe has a high/low desk but hasn't used due to not used to. She reports hasn't had the radicular symptoms for 2 weeks . PT-OP-J Posture/Palpation/Skin Start: 11/03/23 19:53 Freq: Status: Active Protocol: Document 11/13/23 09:49 LRN (Rec: 11/13/23 10:38 LRN [id number]) Posture Evaluation Position Standing T-Spine Posture Flattened L-Spine Posture Increased Lordosis Comments Posture Comments flat upper T/S dowagers, increased lordosis L4-L5, varus of lower leg. Palpation Assessment Location Low back Palpation Location R lumbar paraspinals and upper gluteals Palpation Findings Soft Tissue Tightness,Muscle Guarding,Tenderness PT-OP-K Range of Motion Start: 11/03/23 19:53 Freq: Status: Active Protocol: Document 11/20/23 07:27 LRN (Rec: 11/20/23 08:19 LRN [id number]) Lumbar Spine Range of Motion Lumbar Spine Active Degrees Testing Position Standing Flexion 25 Extension 5 Rotation Left 20 Rotation Right 10 Lateral Flexion Left 5 Lateral Flexion Right 12 PT-OP-L Special Tests Start: 11/03/23 19:53 Freq: Status: Active Protocol: Document 11/13/23 09:49 LRN (Rec: 11/13/23 10:38 LRN [id number]) Special Tests Lumbar Spine Special Tests Manual Traction Test Results - Comments Gentle traction applied Straight Leg Raise Test Results + R Comments at 60 deg's increased R LBP Slump Test Results + R side Comments R LBP Vertical Spine Loading Test Results - Comments No change in pain PT-OP-M Strength Start: 11/03/23 19:53 Freq: Status: Active Protocol: Document 11/13/23 09:49 LRN (Rec: 11/13/23 10:38 LRN [id number]) Hip Strength Hip Manual Muscle Testing Right Comments All muscle groups 3/5 limited by R sided LBP Left Comments All muscle groups 3+/5 limited by R sided LBP Knee Strength Knee Manual Muscle Testing Right Flexion (S2) 5 Normal Extension (L3) 5 Normal Left Flexion (S2) 5 Normal Extension (L3) 5 Normal PT-OP-Q Treatments Start: 11/03/23 19:53 Freq: Status: Active Protocol: Document 01/17/24 09:47 SP (Rec: 01/17/24 10:31 SP [id number]) Gym Equipment Therapeutic Ball core tball Exercise Details added to HEP: declined HOs Ball Size/Color 65cm Body Position Sitting Reps/Duration x10 each Comments 1. pelvic tilts: fwd/bwd/ lateral 2. marching 3. LAQ 4. pull downs TB #3 [place] (rear facing) *cues for neutral pelvis, painfree reported. Therapeutic Exercises Supine Exercises Modified Negro stretch edge of mat Supine Exercise Name HEP Side bilateral Reps/Minutes one minute X 2 each side Comments good relief reported. Lateral Hip stretch Supine Exercise Name Lateral Hip stretch Side bilateral Reps/Minutes 60 sec x 2 Comments good form, no pain range Piriformis stretch Side bilateral Resistance ankle over opposite kn ee Reps/Minutes 60 sec X 2 Comments good form, no pain range Hamstring/LE neural glide Side bilateral Reps/Minutes 10 SH f/b 10 ankle pumps - one set then 60 seconds each LE Comments good form, no pain range TA tightening Supine Exercise Name bug Reps/Minutes X15 Comments cued to keep arch in back & breath Prone Exercises LE ext Prone Exercise Name trialed in PT Equipment Used pillow under pelvis Reps/Minutes x10 alternating BLEs Comments cued TA for spinal stabilization- Prone press ups Prone Exercise Name SHANTA Reps/Minutes 10x Comments trunk ext reports painfree Sidelying Exercises T/S rot stretch Sidelying Exercise Name Open book Side bilateral Reps/Minutes X10 each side Comments reports tightness but improves with reps &ROM Standing Exercises Pallof press Standing Exercise Name HEP Side bilateral Resistance level 3 band- press out belly/ chest Reps/Minutes X15 X 2 Comments cued soft knee, neutral pelvis , midline press out- good core fac, no pain Other Exercises Bird dog quadruped Other Exercise Name dowel on back HEP Side bilateral Reps/Minutes X10, 2 SH Comments cued level pelvis (, pause 2 SH for stabiltily hold PT-OP-T Assessment and Plan Start: 11/03/23 19:53 Freq: Status: Active Protocol: Document 01/17/24 09:47 SP (Rec: 01/17/24 10:31 SP [id number]) Physical Therapy Assessment Goals Four Impairment Functionally limited in ability to mow lawn due to R LB/R leg pain Short Term Goal (STG) Improve core stabilization strength and pt educated in body mechanics with demonstration of proper form to reduce R LB and R leg pain with mowing movement. 12/29/23: Reviewed proper body mechanics with pt demonstrating proper form for mowing to reduce R LB/RLE with the activity. STG Duration 6 wks-12/25/23 (12/29/23: MET GOAL) Detention Goal (LTG) Improve function with pt able to lawn mow w/o R LB/R leg pain. 12/29/23: Pt reporting being able to mow 15' w/o increased R LB/LE pain. Pt noting summer is over and not having to mow. LTG Duration 13 wks-02/09/24 (12/29/23: Currently goal met, no further mowing needed) Three Impairment Sleep interruption Short Term Goal (STG) Pt will be educated and sleeping with modifications to support of legs and trunk. 11/20/23: Educated pt in sleeping posturing with recommendations for LE supports and to side of turnk, and placing pillow in front to prevent her from curling into position. STG Duration 1 wk-05/22/23 (11/20/23: MET GOAL) Speech And Hearing Director Goal (LTG) Pt will be able to sleep 5-7 hrs at night without waking due to pain. 11/27/23: Had better sleep, but had to get up early to go fishing, so slept 5 hrs. After boat trip slept 12 hrs but woke a couple times. 01/17/24: Pt reports sleeping 6 hrs with pain not waking her up. LTG Duration 13 wks-02/09/24 (01/17/24: GOAL MET) Two Impairment Difficulty sitting (<15') and standing (<45-60') Short Term Goal (STG) Pt will be educated and demonstrate knowledge of proper sitting and standing posture. 11/20/23: Reviewed handouts for: Posture sitting for work , Daily activities proper body mechanics and proper sit/ stand posture. 11/30/23: GOAL MET: demonstrated has good ergonomic set up high low table and good LS support with self corrections. STG Duration 2 wks-11/27/23 (MET GOAL ) Detention Goal (LTG) Improve activity tolerance with pt able to improve sitting (2 hrs) to work longer and standing (> 15') for longer periods to cook and wash do dishes. 11/30/23: Progressing has been stand WBOS that lowers height to relief back and good mechanics about 10 min before back. 12/29/23: Can sit for 45' and is less fidgety. 01/17/24: Pt states able sit for 45 min before has to get up but is fidgiting during that 45 min for comfort of back. LTG Duration 13 wks-02/09/24 progressing 01/17/24 One Impairment Pt lacks appropriate self care HEP. Short Term Goal (STG) Pt will be educated in proper body mechanics for transfers & ADLs. 11/20/23: (late entry - Pt educated in: Posture sitting for work, Daily activities proper body mechanics and proper sit/stand posture. 11/23/23: Pt educated in proper transfers and reviewed proper body mechanics for ADLs as issued STG Duration 6 wks-12/25/23 (11/23/23: MET GOAL) Speech And Hearing Director Goal (LTG) Pt will be independent in an effective self care HEP for core/hip strengthening and mobility ex's. 11/16/23 (late entry): HEP: Hamstring/LE neural glide, Core stab: TA, TA in neutral spine. 11/23/23: HEP: Piriformis stretch (knee to opp shdr, & ankle over knee>KTC), & Lateral hip stretch 12/05/2023 Negro stretch, and bird dog added to HEP 01/17/24: trialed> added tball (declined HO): pelvic tilt, core march & LAQ, pull down ( rear facing) NS, TS extension stretch. Trialed prone LE ext but not added to HEP. LTG Duration 13 wks-02/09/24 progressed Progress Towards Goals Progress Comments MET GOAL: LTG #3 Assessment Summary Assessment Pt good response to stretching HEP and progressed core strengthening bug and added seated tball core ex ( declined HOs), pnfree and improved good core facilitation stabiltiy reported will incorporated during sitting at computer home work. Cues for pelvic neutral spine slight recline for core pull down rear facing . Painfree reports throughout tx. Physical Therapy Plan Frequency and Duration Frequency of Treatment 2x/Week Duration of treatment (weeks) 13 Plan of Care Start Date 11/13/23 Plan of Care End Date 02/09/24 Therapeutic Interventions Therapeutic Interventions Balance Training,Gait Training ,Home Exercise Program,Joint Mobilizations,Manual Therapy, Neuromuscular Re-education, Self-Care/Home Management,Soft Tissue Mobilization,Taping, Therapeutic Activities, Therapeutic Exercises Modalities Electric Stimulation,Hot Packs ,Ultrasound Next Visit Focus/Plan Next Note Type Treatment Note Next Visit Plan Has 3 more appts approved, seeing PT for all 3. Recheck seated Tball to HEP last tx. POC: Progress with HEP of core stabilization and improve T/S mobility and progress core stability. Assess ab to Pallof press/ core stabilization, hip stretches/strengthening/squat with band, review of proper posture and body mechanics. Manual: JMT to T/S & modifications to foam rolling as needed, Neural: saphaneous n assessment/rx. POC: Extension protocol for L4-L5 herniated discs, L1-L2 & L4-5 radiculopathy, L saphenous nerve protection.
--- NOTE | 2024-01-29 17:29 | PT.OTN ---
Current Diagnoses Other chronic pain (01/29/24) Low back pain, unspecified (01/29/24) Physical Therapy Treatment Note PT-OP-A Visit Information Start: 11/03/23 19:53 Freq: Status: Active Protocol: Document 01/29/24 13:50 LRN (Rec: 01/29/24 14:35 LRN [id number]) Out-Patient Physical Therapy Visit Information Visit Information Visit Type Treatment Note Visit Note 07/15 after PN Visit Start Time 13:50 Visit Stop Time 14:33 Visit Number 12 (2/) Evaluation Information Evaluation Date 11/13/23 Precautions Precautions Pt reported hx of C4-C5, C5-C6 disc replacement-04/13/2021, hypothyroid controlled w/meds & HBP controlled w/2 meds, depression controlled w/meds. Ms relaxor to sleep at night . PT-OP-B Current Condition Start: 11/03/23 19:53 Freq: Status: Active Protocol: Document 11/13/23 09:49 LRN (Rec: 11/13/23 10:38 LRN [id number]) Current Condition History of Current Condition Onset Date 03/2019 Current Complaints LBP & R upper thigh pain, numb in LLE in L4 nerve pattern History of Current Condition Pt reports on September 12 woke from bed and could barely walk . Pt denies injury onset. Pain has decreased over time. MRI- 2 wks ago in [place] (MRI 2022 showed reduction of disc L4-L5), stating her back looked like when she had originally hurt her back in 2018. She states she has always had numbness in front of L lower hoff and into the medial side of L foot. She sleeps on her L>R side at night. Rolls on foam roller a lot. Pt reports being on Meloxicam for the nerve pain, but might change from Gapabentin to meloxicam. Prior Treatments and Tests PT rehab in May and Jun 2019 for LBP, cont'd to run with leg brace. Nerve conduction study at - May or Jun. Treatment Goals Patient/Caregiver Goals .............. Difficulty sleeping, improve sitting (2 hr) to work longer and standing (10-15') for longer periods to cook, do dishes, Mow lawn w/o R LB/R Leg pain. Prior Functional Status Baseline Function- Recreation/Hobbies Pilates for a year now Current Functional Impairments (Reported) Functional Limitations- ADL's Not cooking as much, because can't stand greater than 15' or sit greater than 45-60' for work. Functional Limitations- Recreation/ Must modify her Pilates Hobbies workout regime. 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 Has tried sitting on ball but doesn't help with pain. Has standing desk but doesn't feel good to stand and work. Pilates workout 2x/week. Single mom with 2 teenagers. 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 PT-OP-C Subjective Start: 11/03/23 19:53 Freq: Status: Active Protocol: Document 01/29/24 13:50 LRN (Rec: 01/29/24 14:35 LRN [id number]) OP-PT Subjective Patient Comments Patient Comments Has been mowing the lawn. Cut back on Pilates because of DA in soccer. R foot tingles when walk or move too much, otherwise the R foot is numb, does have ganglion cyst on the top of the foot. PT-OP-J Posture/Palpation/Skin Start: 11/03/23 19:53 Freq: Status: Active Protocol: Document 11/13/23 09:49 LRN (Rec: 11/13/23 10:38 LRN [id number]) Posture Evaluation Position Standing T-Spine Posture Flattened L-Spine Posture Increased Lordosis Comments Posture Comments flat upper T/S dowagers, increased lordosis L4-L5, varus of lower leg. Palpation Assessment Location Low back Palpation Location R lumbar paraspinals and upper gluteals Palpation Findings Soft Tissue Tightness,Muscle Guarding,Tenderness PT-OP-K Range of Motion Start: 11/03/23 19:53 Freq: Status: Active Protocol: Document 11/20/23 07:27 LRN (Rec: 11/20/23 08:19 LRN [id number]) Lumbar Spine Range of Motion Lumbar Spine Active Degrees Testing Position Standing Flexion 25 Extension 5 Rotation Left 20 Rotation Right 10 Lateral Flexion Left 5 Lateral Flexion Right 12 PT-OP-L Special Tests Start: 11/03/23 19:53 Freq: Status: Active Protocol: Document 11/13/23 09:49 LRN (Rec: 11/13/23 10:38 LRN [id number]) Special Tests Lumbar Spine Special Tests Manual Traction Test Results - Comments Gentle traction applied Straight Leg Raise Test Results + R Comments at 60 deg's increased R LBP Slump Test Results + R side Comments R LBP Vertical Spine Loading Test Results - Comments No change in pain PT-OP-M Strength Start: 11/03/23 19:53 Freq: Status: Active Protocol: Document 11/13/23 09:49 LRN (Rec: 11/13/23 10:38 LRN [id number]) Hip Strength Hip Manual Muscle Testing Right Comments All muscle groups 3/5 limited by R sided LBP Left Comments All muscle groups 3+/5 limited by R sided LBP Knee Strength Knee Manual Muscle Testing Right Flexion (S2) 5 Normal Extension (L3) 5 Normal Left Flexion (S2) 5 Normal Extension (L3) 5 Normal PT-OP-Q Treatments Start: 11/03/23 19:53 Freq: Status: Active Protocol: Document 01/29/24 13:50 LRN (Rec: 01/29/24 14:35 LRN [id number]) Gym Equipment Therapeutic Ball Core ball chest press Exercise Details I/S to do as HEP Ball Size/Color Red Body Position Sitting Comments Cued for neutral spine position to start and cued not to lean fwd when doing chest press. Painfree. core tball Ball Size/Color 65cm Body Position Sitting Reps/Duration x10 each Comments 1. pelvic tilts: fwd/bwd/ lateral 2. marching (65 cm ball) 3. LAQ (55 cm ball) 4. pull downs TB #3 alatna green (rear facing) *cues for neutral pelvis, painfree reported. Therapeutic Exercises Supine Exercises Modified Negro stretch edge of mat Supine Exercise Name HEP Side bilateral Reps/Minutes one minute X 2 each side Comments good relief reported. Lateral Hip stretch Supine Exercise Name Lateral Hip stretch Side bilateral Reps/Minutes 60 sec x 2 Comments good form, no pain range Piriformis stretch Side bilateral Resistance ankle over opposite kn ee Reps/Minutes 60 sec X 2 Comments good form, no pain range Manual Therapy Treatment Soft Tissue Mobilization Femoral n glide Body Location R LE Body Position Prone, thigh on bolster/pillow Comments No pain created Saphenous nerve glides Body Location R LE Body Position Sidelie Comments No pain created PT-OP-T Assessment and Plan Start: 11/03/23 19:53 Freq: Status: Active Protocol: Document 01/29/24 13:50 LRN (Rec: 01/29/24 14:35 LRN [id number]) Physical Therapy Assessment Rehab Potential Rehabilitation Potential Good Evaluation Complexity Number of Personal Factors/Comorbidities 1-2 Number of Body Systems Impaired 4 or More Clinical Presentation at Evaluation Evolving Impairments Impairments Activity Tolerance,Functional Activities,Pain,Posture,ROM, Soft Tissue Mobility,Strength, Transfers Goals Five Impairment Tolerates sitting for only 20' without fidgeting Hop Sorter Goal (LTG) Improve core strength and tolerance to sitting w/o fidgiting to 30 minutes or more. LTG Duration 2 visits Four Impairment Functionally limited in ability to mow lawn due to R LB/R leg pain Short Term Goal (STG) Improve core stabilization strength and pt educated in body mechanics with demonstration of proper form to reduce R LB and R leg pain with mowing movement. 12/29/23: Reviewed proper body mechanics with pt demonstrating proper form for mowing to reduce R LB/RLE with the activity. STG Duration 6 wks-12/25/23 (12/29/23: MET GOAL) Detention Goal (LTG) Improve function with pt able to lawn mow w/o R LB/R leg pain. 12/29/23: Pt reporting being able to mow 15' w/o increased R LB/LE pain. Pt noting summer is over and not having to mow. Three Impairment Sleep interruption Short Term Goal (STG) Pt will be educated and sleeping with modifications to support of legs and trunk. 11/20/23: Educated pt in sleeping posturing with recommendations for LE supports and to side of turnk, and placing pillow in front to prevent her from curling into position. STG Duration 1 wk-05/22/23 (11/20/23: MET GOAL) Detention Goal (LTG) Pt will be able to sleep 5-7 hrs at night without waking due to pain. 11/27/23: Had better sleep, but had to get up early to go fishing, so slept 5 hrs. After boat trip slept 12 hrs but woke a couple times. 01/17/24: Pt reports sleeping 6 hrs with pain not waking her up. LTG Duration 13 wks-02/09/24 (01/17/24: GOAL MET) Two Impairment Difficulty sitting (<15') and standing (<45-60') Short Term Goal (STG) Pt will be educated and demonstrate knowledge of proper sitting and standing posture. 11/20/23: Reviewed handouts for: Posture sitting for work , Daily activities proper body mechanics and proper sit/ stand posture. 11/30/23: GOAL MET: demonstrated has good ergonomic set up high low table and good LS support with self corrections. STG Duration 2 wks-11/27/23 (MET GOAL ) Detention Goal (LTG) Improve activity tolerance with pt able to improve sitting (2 hrs) to work longer and standing (> 15') for longer periods to cook and wash doing dishes. 11/30/23: Progressing has been stand WBOS that lowers height to relief back and good mechanics about 10 min before back. 12/29/23: Can sit for 45' and is less fidgety. 01/17/24: Pt states able sit for 45 min before has to get up but is fidgiting during that 45 min for comfort of back. 01/29/24: Sitting tolerance is 60 fidgiting minutes (20 minutes w/o fidgiting). Able to sit for work and after work can sit for schoolwork. Washing dishes and cooking tolerance is better (15-20') when adjusting of stance. LTG Duration 13 wks-02/09/24 (01/29/24: MET GOAL) One Impairment Pt lacks appropriate self care HEP. Short Term Goal (STG) Pt will be educated in proper body mechanics for transfers & ADLs. 11/20/23: (late entry - Pt educated in: Posture sitting for work, Daily activities proper body mechanics and proper sit/stand posture. 11/23/23: Pt educated in proper transfers and reviewed proper body mechanics for ADLs as issued STG Duration 6 wks-12/25/23 (11/23/23: MET GOAL) Hop Sorter Goal (LTG) Pt will be independent in an effective self care HEP for core/hip strengthening and mobility ex's. 11/16/23 (late entry): HEP: Hamstring/LE neural glide, Core stab: TA, TA in neutral spine. 11/23/23: HEP: Piriformis stretch (knee to opp shdr, & ankle over knee>KTC), & Lateral hip stretch 12/05/2023 Negro stretch, and bird dog added to HEP 01/17/24: trialed> added tball (declined HO): pelvic tilt, core march & LAQ, pull down ( rear facing) NS, TS extension stretch. Trialed prone LE ext but not added to HEP. LTG Duration 2 visits progressed 01/17/24 Assessment Summary Assessment Pt was on hold with therapy while waiting for insurance approval of more therapy visits; she has 2 more visits approved and has been scheduled for one, but will be on a waitlist for the last approved visit; therefore and extension of her POC (6 wks being requested) is needed to give the pt time to complete her last visit, as wait times for appointments can sometimes be long. The pt was able to encorporate a new ex from her last session into her home exercise program and was able to demonstrate it with good knowledge, only requiring cuing for core stability with marching and LAQ. The pt had been doing a Pilate's class ( no longer able to attend), working on abdominal muscles and bug ex's while on a balance egg shaped ball. The pt is now ready to finish her PT program and will benefit from further skilled physical therapy to help relieve her LLE pain and is expected to be able to achieve being painfree again with further physical therapy. The pt has been seen, as of today, twice since her last progress note. Physical Therapy Plan Frequency and Duration Frequency of Treatment 1x/Week Duration of treatment (weeks) 6 Plan of Care Start Date 01/29/24 Plan of Care End Date 03/11/24 Therapeutic Interventions Therapeutic Interventions Balance Training,Gait Training ,Home Exercise Program,Joint Mobilizations,Manual Therapy, Neuromuscular Re-education, Self-Care/Home Management,Soft Tissue Mobilization,Taping, Therapeutic Activities, Therapeutic Exercises Modalities Electric Stimulation,Hot Packs ,Ultrasound Next Visit Focus/Plan Next Note Type Treatment Note Next Visit Plan Has 2 more appts approved. POC: Extension protocol for L4-L5 herniated discs, L1-L2 & L4-5 radiculopathy, L saphenous nerve protection. Progress with HEP of core stabilization and improve T/S mobility and progress core stability. Assess ab to Palof press/ core stabilization, hip stretches/strengthening/squat with band, review of proper posture and body mechanics. Manual: JMT to T/S & modifications to foam rolling as needed, Neural: saphaneous n assessment/rx.
--- NOTE | 2024-02-06 13:29 | PT.OTN ---
Current Diagnoses Other chronic pain (02/06/24) Low back pain, unspecified (02/06/24) Physical Therapy Treatment Note PT-OP-A Visit Information Start: 11/03/23 19:53 Freq: Status: Active Protocol: Document 02/06/24 11:35 LRN (Rec: 02/06/24 12:16 LRN [id number]) Out-Patient Physical Therapy Visit Information Visit Information Visit Type Treatment Note Visit Note 07/15 after PN Visit Start Time 11:35 Visit Stop Time 12:14 Visit Number 13 (3) Evaluation Information Evaluation Date 11/13/23 Precautions Precautions Pt reported hx of C4-C5, C5-C6 disc replacement-04/13/2021, hypothyroid controlled w/meds & HBP controlled w/2 meds, depression controlled w/meds. Ms relaxor to sleep at night . PT-OP-B Current Condition Start: 11/03/23 19:53 Freq: Status: Active Protocol: Document 11/13/23 09:49 LRN (Rec: 11/13/23 10:38 LRN [id number]) Current Condition History of Current Condition Onset Date 03/2019 Current Complaints LBP & R upper thigh pain, numb in LLE in L4 nerve pattern History of Current Condition Pt reports on September 12 woke from bed and could barely walk . Pt denies injury onset. Pain has decreased over time. MRI- 2 wks ago in [place] (MRI 2022 showed reduction of disc L4-L5), stating her back looked like when she had originally hurt her back in 2018. She states she has always had numbness in front of L lower hoff and into the medial side of L foot. She sleeps on her L>R side at night. Rolls on foam roller a lot. Pt reports being on Meloxicam for the nerve pain, but might change from Gapabentin to meloxicam. Prior Treatments and Tests PT rehab in May and Jun 2019 for LBP, cont'd to run with leg brace. Nerve conduction study at - May or Jun. Treatment Goals Patient/Caregiver Goals .............. Difficulty sleeping, improve sitting (2 hr) to work longer and standing (10-15') for longer periods to cook, do dishes, Mow lawn w/o R LB/R Leg pain. Prior Functional Status Baseline Function- Recreation/Hobbies Pilates for a year now Current Functional Impairments (Reported) Functional Limitations- ADL's Not cooking as much, because can't stand greater than 15' or sit greater than 45-60' for work. Functional Limitations- Recreation/ Must modify her Pilates Hobbies workout regime. 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 Has tried sitting on ball but doesn't help with pain. Has standing desk but doesn't feel good to stand and work. Pilates workout 2x/week. Single mom with 2 teenagers. 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 PT-OP-C Subjective Start: 11/03/23 19:53 Freq: Status: Active Protocol: Document 02/06/24 11:35 LRN (Rec: 02/06/24 12:16 LRN [id number]) OP-PT Subjective Patient Comments Patient Comments Last 3 mornings has had twinge of pain in LB and down the leg. Being extra careful with mvmt to avoid pain. States had done Pilates abdominal work. PT-OP-J Posture/Palpation/Skin Start: 11/03/23 19:53 Freq: Status: Active Protocol: Document 11/13/23 09:49 LRN (Rec: 11/13/23 10:38 LRN [id number]) Posture Evaluation Position Standing T-Spine Posture Flattened L-Spine Posture Increased Lordosis Comments Posture Comments flat upper T/S dowagers, increased lordosis L4-L5, varus of lower leg. Palpation Assessment Location Low back Palpation Location R lumbar paraspinals and upper gluteals Palpation Findings Soft Tissue Tightness,Muscle Guarding,Tenderness PT-OP-K Range of Motion Start: 11/03/23 19:53 Freq: Status: Active Protocol: Document 11/20/23 07:27 LRN (Rec: 11/20/23 08:19 LRN [id number]) Lumbar Spine Range of Motion Lumbar Spine Active Degrees Testing Position Standing Flexion 25 Extension 5 Rotation Left 20 Rotation Right 10 Lateral Flexion Left 5 Lateral Flexion Right 12 PT-OP-L Special Tests Start: 11/03/23 19:53 Freq: Status: Active Protocol: Document 11/13/23 09:49 LRN (Rec: 11/13/23 10:38 LRN [id number]) Special Tests Lumbar Spine Special Tests Manual Traction Test Results - Comments Gentle traction applied Straight Leg Raise Test Results + R Comments at 60 deg's increased R LBP Slump Test Results + R side Comments R LBP Vertical Spine Loading Test Results - Comments No change in pain PT-OP-M Strength Start: 11/03/23 19:53 Freq: Status: Active Protocol: Document 11/13/23 09:49 LRN (Rec: 11/13/23 10:38 LRN [id number]) Hip Strength Hip Manual Muscle Testing Right Comments All muscle groups 3/5 limited by R sided LBP Left Comments All muscle groups 3+/5 limited by R sided LBP Knee Strength Knee Manual Muscle Testing Right Flexion (S2) 5 Normal Extension (L3) 5 Normal Left Flexion (S2) 5 Normal Extension (L3) 5 Normal PT-OP-Q Treatments Start: 11/03/23 19:53 Freq: Status: Active Protocol: Document 02/06/24 11:35 LRN (Rec: 02/06/24 12:16 LRN [id number]) Therapeutic Exercises Supine Exercises LTR Supine Exercise Name LTR trunk rot stretch Side bilateral Reps/Minutes 5 SH x 10 DKTC Supine Exercise Name Quick review Reps/Minutes 30 SH Comments Pt already doing daily Modified Negro stretch edge of mat Supine Exercise Name HEP Side bilateral Reps/Minutes one minute X 1 each side Comments good relief reported. Lateral Hip stretch Supine Exercise Name Lateral Hip stretch Side bilateral Reps/Minutes 30 sec x 1 Comments good form, no pain range Piriformis stretch Side bilateral Resistance ankle over opposite kn ee Reps/Minutes 60 sec X 1 Comments good form, no pain range Hamstring/LE neural glide Supine Exercise Name Reviewed verbally Comments Cautioned pt to not ex into pain and when in flare up to hold ex. KTC Side bilateral Reps/Minutes 30 SH x 1 Prone Exercises LE ext Prone Exercise Name LE ext/TA tight Side bilateral Reps/Minutes 10 x 3 each. Comments Cued for neutral spine positioning. Prone press ups Prone Exercise Name SHANTA Reps/Minutes 10x Comments trunk ext reports painfree Sidelying Exercises T/S rot stretch Sidelying Exercise Name Open book Side bilateral Reps/Minutes X10 each side Comments reports tightness but improves with reps &ROM Standing Exercises Gastroc stretch Side bilateral Reps/Minutes 30 SH x 1 Pallof press Standing Exercise Name Paloff press and trunk rot with arms straight fwd Side bilateral Reps/Minutes 10x each Other Exercises Hands/knees Other Exercise Name [place] arm/leg lifts, & fwd/bkwd movement Side bilateral Reps/Minutes 20x each, 10x each respectively Self-Care/Home Management Treatment Activities Self-Care/Home Management Activities Issued & reviewed HEP: Trunk Ext progression, general LBP ex's, core stab ex's (sup arm lift, SL lifts, arm/leg lifts, leg slides, full extension, 4 pt: alt arm/leg lifts & trunk roll fwd/bkwd. PT-OP-T Assessment and Plan Start: 11/03/23 19:53 Freq: Status: Active Protocol: Document 02/06/24 11:35 LRN (Rec: 02/06/24 12:16 LRN [id number]) Physical Therapy Assessment Goals Five Impairment Tolerates sitting for only 20' without fidgeting [facility] Goal (LTG) Improve core strength and tolerance to sitting w/o fidgiting to 30 minutes or more. 02/06/24: Able to sit 30' in folding lawn chair without having to get up, and fidgeting not because of pain. Pt feels she can sit longer, up to 30 minutes. LTG Duration 2 visits (02/06/24: MET GOAL) Four Impairment Functionally limited in ability to mow lawn due to R LB/R leg pain Short Term Goal (STG) Improve core stabilization strength and pt educated in body mechanics with demonstration of proper form to reduce R LB and R leg pain with mowing movement. 12/29/23: Reviewed proper body mechanics with pt demonstrating proper form for mowing to reduce R LB/RLE with the activity. STG Duration 6 wks-12/25/23 (12/29/23: MET GOAL) [facility] Goal (LTG) Improve function with pt able to lawn mow w/o R LB/R leg pain. 12/29/23: Pt reporting being able to mow 15' w/o increased R LB/LE pain. Pt noting summer is over and not having to mow. LTG Duration 13 wks-02/09/24 (12/29/23: Currently goal met, no further mowing needed) Three Impairment Sleep interruption Short Term Goal (STG) Pt will be educated and sleeping with modifications to support of legs and trunk. 11/20/23: Educated pt in sleeping posturing with recommendations for LE supports and to side of turnk, and placing pillow in front to prevent her from curling into position. STG Duration 1 wk-05/22/23 (11/20/23: MET GOAL) Chemical Sprayer Goal (LTG) Pt will be able to sleep 5-7 hrs at night without waking due to pain. 11/27/23: Had better sleep, but had to get up early to go fishing, so slept 5 hrs. After boat trip slept 12 hrs but woke a couple times. 01/17/24: Pt reports sleeping 6 hrs with pain not waking her up. LTG Duration 13 wks-02/09/24 (01/17/24: GOAL MET) Two Impairment Difficulty sitting (<15') and standing (<45-60') Short Term Goal (STG) Pt will be educated and demonstrate knowledge of proper sitting and standing posture. 11/20/23: Reviewed handouts for: Posture sitting for work , Daily activities proper body mechanics and proper sit/ stand posture. 11/30/23: GOAL MET: demonstrated has good ergonomic set up high low table and good LS support with self corrections. STG Duration 2 wks-11/27/23 (MET GOAL ) [facility] Goal (LTG) Improve activity tolerance with pt able to improve sitting (2 hrs) to work longer and standing (> 15') for longer periods to cook and wash doing dishes. 11/30/23: Progressing has been stand WBOS that lowers height to relief back and good mechanics about 10 min before back. 12/29/23: Can sit for 45' and is less fidgety. 01/17/24: Pt states able sit for 45 min before has to get up but is fidgiting during that 45 min for comfort of back. 01/29/24: Sitting tolerance is 60 fidgiting minutes (20 minutes w/o fidgiting). Able to sit for work and after work can sit for schoolwork. Washing dishes and cooking tolerance is better (15-20') when adjusting of stance. LTG Duration 13 wks-02/09/24 (01/29/24: MET GOAL) One Impairment Pt lacks appropriate self care HEP. Short Term Goal (STG) Pt will be educated in proper body mechanics for transfers & ADLs. 11/20/23: (late entry - Pt educated in: Posture sitting for work, Daily activities proper body mechanics and proper sit/stand posture. 11/23/23: Pt educated in proper transfers and reviewed proper body mechanics for ADLs as issued STG Duration 6 wks-12/25/23 (11/23/23: MET GOAL) Chemical Sprayer Goal (LTG) Pt will be independent in an effective self care HEP for core/hip strengthening and mobility ex's. 11/16/23 (late entry): HEP: Hamstring/LE neural glide, Core stab: TA, TA in neutral spine. 11/23/23: HEP: Piriformis stretch (knee to opp shdr, & ankle over knee>KTC), & Lateral hip stretch 12/05/2023 Negro stretch, and bird dog added to HEP 01/17/24: trialed> added tball (declined HO): pelvic tilt, core march & LAQ, pull down ( rear facing) NS, TS extension stretch. Trialed prone LE ext but not added to HEP. 02/06/24: HEP: Trunk Ext progression, general LBP ex's, core stab ex's (sup arm lift, SL lifts, arm/leg lifts, leg slides, full extension, 4 pt: alt arm/leg lifts & trunk roll fwd/bkwd. LTG Duration 2 visits progressed 02/06/24 Assessment Summary Assessment Pt is progressing well, is now able to sit for 30 minutes w/ o fidgeting due to pain. She shows good recall of hip stretches except for Lat Hip Stretch she needed a review. Good tolerance to Paloff press outs & rot strengthening w/no complaints of pain. Physical Therapy Plan Frequency and Duration Frequency of Treatment 1x/Week Duration of treatment (weeks) 6 Plan of Care Start Date 01/29/24 Plan of Care End Date 03/11/24 Next Visit Focus/Plan Next Note Type Discharge Summary Next Visit Plan DC to HEP. of and improve T/S mobility and progress core stability. Assess ab to new LBP, lumbar ext program & DLS of sup & 4 pt progressive program. Add squat with stepping and holding ends of Tband, and review of proper posture and body mechanics. Manual: JMT to T/S & modifications to foam rolling as needed, Neural: saphaneous n assessment/rx.
--- NOTE | 2024-02-19 16:17 | PT.OTN ---
Current Diagnoses Other chronic pain (02/19/24) Low back pain, unspecified (02/19/24) Physical Therapy Treatment Note PT-OP-A Visit Information Start: 11/03/23 19:53 Freq: Status: Active Protocol: Document 02/19/24 11:31 LRN (Rec: 02/19/24 12:36 LRN [id number]) Out-Patient Physical Therapy Visit Information Visit Information Visit Type Treatment Note Visit Note 09/14 after PN Visit Start Time 11:31 Visit Stop Time 12:12 Visit Number 14 (08/09) Evaluation Information Evaluation Date 11/13/23 Precautions Precautions Pt reported hx of C4-C5, C5-C6 disc replacement-04/13/2021, hypothyroid controlled w/meds & HBP controlled w/2 meds, depression controlled w/meds. Ms relaxor to sleep at night . PT-OP-B Current Condition Start: 11/03/23 19:53 Freq: Status: Active Protocol: Document 11/13/23 09:49 LRN (Rec: 11/13/23 10:38 LRN [id number]) Current Condition History of Current Condition Onset Date 03/2019 Current Complaints LBP & R upper thigh pain, numb in LLE in L4 nerve pattern History of Current Condition Pt reports on September 12 woke from bed and could barely walk . Pt denies injury onset. Pain has decreased over time. MRI- 2 wks ago in [place] (MRI 2022 showed reduction of disc L4-L5), stating her back looked like when she had originally hurt her back in 2018. She states she has always had numbness in front of L lower hoff and into the medial side of L foot. She sleeps on her L>R side at night. Rolls on foam roller a lot. Pt reports being on Meloxicam for the nerve pain, but might change from Gapabentin to meloxicam. Prior Treatments and Tests PT rehab in May and Jun 2019 for LBP, cont'd to run with leg brace. Nerve conduction study at - May or Jun. Treatment Goals Patient/Caregiver Goals .............. Difficulty sleeping, improve sitting (2 hr) to work longer and standing (10-15') for longer periods to cook, do dishes, Mow lawn w/o R LB/R Leg pain. Prior Functional Status Baseline Function- Recreation/Hobbies Pilates for a year now Current Functional Impairments (Reported) Functional Limitations- ADL's Not cooking as much, because can't stand greater than 15' or sit greater than 45-60' for work. Functional Limitations- Recreation/ Must modify her Pilates Hobbies workout regime. 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 Has tried sitting on ball but doesn't help with pain. Has standing desk but doesn't feel good to stand and work. Pilates workout 2x/week. Single mom with 2 teenagers. Does laundry at laundry mat or at [place] [facility]. PT-OP-C Subjective Start: 11/03/23 19:53 Freq: Status: Active Protocol: Document 02/19/24 11:31 LRN (Rec: 02/19/24 12:36 LRN [id number]) OP-PT Subjective Patient Comments Patient Comments Feels ready for discharge to [facility]. Back is the same after using the riding gearman. LB is achy. Wakes with back pain, hasn't been doing Pilates because did Pilates 2x in a row and is now consistently waking with pain. Doing stretching at home. Patient Questionnaires Oswestry Low Back Index Oswestry Score 12/50 Oswestry Impairment 20 to 39% Impaired (Score 20- 39) OP-PT Pain Assessment Location Anterior R thigh Pain Location Details Anterior R hip Intensity 3 Low back Pain Location Details R lateral low back Intensity 3 Scale Used Numeric (0 - 10) PT-OP-J Posture/Palpation/Skin Start: 11/03/23 19:53 Freq: Status: Active Protocol: Document 11/13/23 09:49 LRN (Rec: 11/13/23 10:38 LRN [id number]) Posture Evaluation Position Standing T-Spine Posture Flattened L-Spine Posture Increased Lordosis Comments Posture Comments flat upper T/S dowagers, increased lordosis L4-L5, varus of lower leg. Palpation Assessment Location Low back Palpation Location R lumbar paraspinals and upper gluteals Palpation Findings Soft Tissue Tightness,Muscle Guarding,Tenderness PT-OP-K Range of Motion Start: 11/03/23 19:53 Freq: Status: Active Protocol: Document 11/20/23 07:27 LRN (Rec: 11/20/23 08:19 LRN [id number]) Lumbar Spine Range of Motion Lumbar Spine Active Degrees Testing Position Standing Flexion 25 Extension 5 Rotation Left 20 Rotation Right 10 Lateral Flexion Left 5 Lateral Flexion Right 12 PT-OP-L Special Tests Start: 11/03/23 19:53 Freq: Status: Active Protocol: Document 11/13/23 09:49 LRN (Rec: 11/13/23 10:38 LRN [id number]) Special Tests Lumbar Spine Special Tests Manual Traction Test Results - Comments Gentle traction applied Straight Leg Raise Test Results + R Comments at 60 deg's increased R LBP Slump Test Results + R side Comments R LBP Vertical Spine Loading Test Results - Comments No change in pain PT-OP-M Strength Start: 11/03/23 19:53 Freq: Status: Active Protocol: Document 11/13/23 09:49 LRN (Rec: 11/13/23 10:38 LRN [id number]) Hip Strength Hip Manual Muscle Testing Right Comments All muscle groups 3/5 limited by R sided LBP Left Comments All muscle groups 3+/5 limited by R sided LBP Knee Strength Knee Manual Muscle Testing Right Flexion (S2) 5 Normal Extension (L3) 5 Normal Left Flexion (S2) 5 Normal Extension (L3) 5 Normal PT-OP-Q Treatments Start: 11/03/23 19:53 Freq: Status: Active Protocol: Document 02/19/24 11:31 LRN (Rec: 02/19/24 12:36 LRN [id number]) Therapeutic Exercises Supine Exercises TA marching Reps/Minutes 10x Comments Cued to counter R leg lift with counter rot of trunk to L . TA/SLR Side bilateral Reps/Minutes 10x Comments Cued to not rotate at hips LTR Supine Exercise Name V. review, held due to discomfort of R LB from Pilates. DKTC Supine Exercise Name V. review, held due to discomfort of R LB from Pilates. Modified Negro stretch edge of mat Side bilateral Reps/Minutes one minute X 1 each side Comments good relief reported. Lateral Hip stretch Supine Exercise Name Lateral Hip stretch Side bilateral Reps/Minutes 30 sec x 1 Comments good form, no pain range Piriformis stretch Side bilateral Resistance ankle over opposite kn ee Reps/Minutes 60 sec X 1 Comments good form, no pain range Hamstring/LE neural glide Supine Exercise Name V. review, held due to discomfort of R LB from Pilates. KTC Side bilateral Reps/Minutes 10 SH x 6 TA tightening Supine Exercise Name TA tightening ( bug) Reps/Minutes 5x each. Prone Exercises LE ext Prone Exercise Name V. review as pt's HEP. Sidelying Exercises T/S rot stretch Sidelying Exercise Name Open book Side bilateral Reps/Minutes X10 each side Comments reports tightness but improves with reps &ROM Other Exercises Foam Roller home ex's Other Exercise Name Reviewed pt's home program of foam rolling ex's. Reps/Minutes 8' T/S rot stretch Other Exercise Name V. review, held due to discomfort of R LB from Pilates. Self-Care/Home Management Treatment Education Other Education 8' Review with discussion of Pilates class and identified what might have caused pt LBP that has lingered since the last time she took the class. Identified her plank ex with rolling board. Verbally reviewed proper sitting posture and brief review of body mechanics for lifting. Activities Self-Care/Home Management Activities I/S pt in squat side stepping for Glut Med strengthening with pt to concentrate on keeping core stable in neutral . 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 02/06/24: Able to sit 30' in folding lawn chair without having to get up, and fidgeting not because of pain. Pt feels she can sit longer, up to 30 minutes. LTG Duration 2 visits (02/06/24: MET GOAL) Four Impairment Functionally limited in ability to mow lawn due to R LB/R leg pain Short Term Goal (STG) Improve core stabilization strength and pt educated in body mechanics with demonstration of proper form to reduce R LB and R leg pain with mowing movement. 12/29/23: Reviewed proper body mechanics with pt demonstrating proper form for mowing to reduce R LB/RLE with the activity. STG Duration 6 wks-12/25/23 (12/29/23: MET GOAL) Correction Goal (LTG) Improve function with pt able to lawn mow w/o R LB/R leg pain. 12/29/23: Pt reporting being able to mow 15' w/o increased R LB/LE pain. Pt noting summer is over and not having to mow. LTG Duration 13 wks-02/09/24 (12/29/23: Currently goal met, no further mowing needed) Three Impairment Sleep interruption Short Term Goal (STG) Pt will be educated and sleeping with modifications to support of legs and trunk. 11/20/23: Educated pt in sleeping posturing with recommendations for LE supports and to side of turnk, and placing pillow in front to prevent her from curling into position. STG Duration 1 wk-05/22/23 (11/20/23: MET GOAL) Matt[employer] And [employer]springs Supervisor Goal (LTG) Pt will be able to sleep 5-7 hrs at night without waking due to pain. 11/27/23: Had better sleep, but had to get up early to go fishing, so slept 5 hrs. After boat trip slept 12 hrs but woke a couple times. 01/17/24: Pt reports sleeping 6 hrs with pain not waking her up. LTG Duration 13 wks-02/09/24 (01/17/24: GOAL MET) Two Impairment Difficulty sitting (<15') and standing (<45-60') Short Term Goal (STG) Pt will be educated and demonstrate knowledge of proper sitting and standing posture. 11/20/23: Reviewed handouts for: Posture sitting for work , Daily activities proper body mechanics and proper sit/ stand posture. 11/30/23: GOAL MET: demonstrated has good ergonomic set up high low table and good LS support with self corrections. STG Duration 2 wks-11/27/23 (MET GOAL ) Correction Goal (LTG) Improve activity tolerance with pt able to improve sitting (2 hrs) to work longer and standing (> 15') for longer periods to cook and wash doing dishes. 11/30/23: Progressing has been stand WBOS that lowers height to relief back and good mechanics about 10 min before back. 12/29/23: Can sit for 45' and is less fidgety. 01/17/24: Pt states able sit for 45 min before has to get up but is fidgiting during that 45 min for comfort of back. 01/29/24: Sitting tolerance is 60 fidgiting minutes (20 minutes w/o fidgiting). Able to sit for work and after work can sit for schoolwork. Washing dishes and cooking tolerance is better (15-20') when adjusting of stance. LTG Duration 13 wks-02/09/24 (01/29/24: MET GOAL) One Impairment Pt lacks appropriate self care HEP. Short Term Goal (STG) Pt will be educated in proper body mechanics for transfers & ADLs. 11/20/23: (late entry - Pt educated in: Posture sitting for work, Daily activities proper body mechanics and proper sit/stand posture. 11/23/23: Pt educated in proper transfers and reviewed proper body mechanics for ADLs as issued STG Duration 6 wks-12/25/23 (11/23/23: MET GOAL) Correction Goal (LTG) Pt will be independent in an effective self care HEP for core/hip strengthening and mobility ex's. 11/16/23 (late entry): HEP: Hamstring/LE neural glide, Core stab: TA, TA in neutral spine. 11/23/23: HEP: Piriformis stretch (knee to opp shdr, & ankle over knee>KTC), & Lateral hip stretch 12/05/2023 Negro stretch, and bird dog added to HEP 01/17/24: trialed> added tball (declined HO): pelvic tilt, core march & LAQ, pull down ( rear facing) NS, TS extension stretch. Trialed prone LE ext but not added to HEP. 02/06/24: HEP: Trunk Ext progression, general LBP ex's, core stab ex's (sup arm lift, SL lifts, arm/leg lifts, leg slides, full extension, 4 pt: alt arm/leg lifts & trunk roll fwd/bkwd. 02/19/24: Reviewed HEP and her foam rolling home ex's and Pilates ex's. LTG Duration 2 visits (02/19/24: MET GOAL) Assessment Summary Assessment Pt is a a 48 yo female who initially presented with L1- L2 radicular pain in the Kuldip LB (L anterior thigh, L medial anterior hoff and foot in saphenous nerve distribution), LE & L/S postural changes. Most her her symptoms are resolved, except she is in a flare up with onset of R LBP, rated 3/10 since doing a Pilates class 2 days in a row. It was identified what activity may have caused her onset of pain when waking in the morning, so that pt can avoid the ex and other types of exercise that may cause pain flare ups. Today, she demonstrates minimal decrease in core stability when lifting her R leg, otherwise she is able to perform all ex's w/o onset of pain, including foam rolling ex's from previous HEP of back, shoulders, calf, LB, hamstrings. The pt was advised to the ex's that may cause LBP or not best exercise to perform (rolling underarm with foam roller and ball). Pt doesn't have questions regarding previously issued home ex's of: LB, lumbar ext program, DLS of sup & 4 pt progressive program. Pt appears to have a good understanding of proper posturing and body mechanics with brief review and is ready to be placed on her independent HEP for her to continue to manage her pain. Physical Therapy Plan Discharge Physical Therapy Discharge Reasons Goals Met Discharge Comments Pt in mild flare-up state since doing Pilates class 2 days in a row, but with possible identification of mvmt that caused the flare up. Pt to avoid ex's that causes pain and or irritation and is expected to be able to reach her prior level of pain free LB upon waking. Thank you for your referral.
== END 2024-02-21 10:11 | disposition home or self-care (01) ==
LOC: PHYS 11:30
PROVIDERS: Family Provider Family Medicine; PCP Family Medicine; Referring Provider Family Medicine; Visit Provider Family Medicine
DX: M54.50 Low back pain, unspecified (principal); G89.29 Other chronic pain
CPT/HCPCS: 97110; 97140; 97162; 97530; 97535

== ENCOUNTER → 2024-02-20 16:02 | Outpatient (CLI) | payer BC, SELFPAY ==
--- NOTE | 2024-02-20 16:04 | DI.MG.S_ITS ---
BILATERAL DIGITAL SCREENING MAMMOGRAM 3D/2D WITH CAD: 02/20/2024 CLINICAL: Routine screening. Family history of breast cancer. Comparison is made to exams dated: 07/19/2022 mammogram, 06/11/2021 mammogram, and 06/08/2020 mammogram - [facility]. There are scattered areas of fibroglandular density (category b / 25%-50% glandular tissue). Current study was also evaluated with a Computer Aided Detection (CAD) system. No significant masses, calcifications, or other findings are seen in either breast. There has been no significant interval change. IMPRESSION: NEGATIVE There is no mammographic evidence of malignancy. A 1 year screening mammogram is recommended. Based on the Tyrer Cuzick model (a risk assessment model) the patient's lifetime risk is 16.4% and her 10 year risk is 3.4%. According to the ACR, ACS, and NCCN guidelines, an annual breast MRI exam along with mammogram is recommended if the patient's lifetime risk is 20% or greater. This exam was interpreted at Station ID: [id number]. NOTE: For mammograms, a report in lay terms will be sent to the patient. Approximately 15% of breast malignancies will not be visualized mammographically. In the management of a palpable breast mass, a negative mammogram must not discourage biopsy of a clinically suspicious lesion. Electronically Signed By: Dima bliss/adan:02/21/2024 07:26:16 letter sent: Normal Exam ACR BI-RADS Category 1: Negative
== END ==
LOC: MAMMO 16:03
PROVIDERS: Family Provider Family Medicine; PCP Family Medicine; Referring Provider Family Medicine; Visit Provider Family Medicine
DX: Z12.31 Encounter for screening mammogram for malignant neoplasm of breast (principal); Z80.3 Family history of malignant neoplasm of breast
CPT/HCPCS: 77063; 77067

== ENCOUNTER → 2025-02-21 11:37 | Outpatient (CLI) | payer BC, SELFPAY ==
--- NOTE | 2025-02-21 11:38 | DI.MG.S_ITS ---
MM screening mammo BI: 02/21/2025. BI-RADS: 1 CLINICAL: 49-year old female for bilateral screening mammogram. Tyrer-Cuzick lifetime risk of 7.2%. No personal or first-degree family history of breast cancer. PRIOR EXAMS 02/20/2024, 07/19/2022, 06/11/2021, 06/08/2020. MAMMOGRAPHY TECHNIQUE: 2D and 3D (tomosynthesis) digital mammographic views obtained, with additional images as needed for full coverage. Current study was also evaluated with a Computer Aided Detection (CAD) system. DENSITY B. There are scattered areas of fibroglandular density. MAMMOGRAPHY FINDINGS Bilateral: No suspicious mass, asymmetry, microcalcification, or other abnormality seen. IMPRESSION: * No evidence of malignancy. RECOMMENDATIONS Bilateral * Annual screening mammography. OVERALL ASSESSMENT CATEGORY BI-RADS-1: Negative. The [employer] recommends annual screening mammography beginning at age 40 for women with average risk of breast cancer. ELECTRONICALLY SIGNED: Yessy Campos M.D. on 02/23/2025 at 11:16:42 PM PT Interpreting Station ID: [id number]
== END ==
LOC: MAMMO 11:38
PROVIDERS: Family Provider Family Medicine; PCP Family Medicine; Referring Provider Family Medicine; Visit Provider Family Medicine
DX: Z12.31 Encounter for screening mammogram for malignant neoplasm of breast (principal)
CPT/HCPCS: 77063; 77067